=== PATIENT | female | born 1940 | race Caucasian/White ===

== ENCOUNTER 2016-12-06 12:32 | Observation (INO) ==
[2016-12-06 13:34] LABS: Basophils # (Auto) 0 K/mcL (0.0-0.3); Basophils % (Auto) 0 % (0.0-2.0); Eosinophils # (Auto) 0.2 K/mcL (0.0-0.7); Eosinophils % (Auto) 1.6 % (0.0-7.0); Granulocytes % (Auto) 82.7 % (38.0-78.0); Lymphocytes # (Auto) 1.1 K/mcL (1.5-4.8); Lymphocytes % (Auto) 10.2 % (15.5-49.0); Mean Cell Volume 86.5 fL (80.0-100.0); Mean Corpuscular HGB Conc 32.1 g/dL (31.0-36.0); Mean Corpuscular Hemoglobin 27.8 pg (26.0-34.0); Monocytes # (Auto) 0.6 K/mcL (0.1-0.9); Monocytes % (Auto) 5.5 % (1.0-9.0); Platelet Count 226 K/mcL (140-440); Red Cell Distribution Width 14.3 % (11.5-14.5)
[2016-12-06 13:47] LABS: ALT/SGPT 23 U/l (0-40); Albumin/Globulin Ratio 1.4 (1.0-2.3); Alkaline Phosphatase 80 U/L (39-117); Blood Urea Nitrogen 27 mg/dl (8-23)
--- NOTE | 2016-12-06 14:32 | Emergency Department Note ---
Weakness HPI - General Chief complaint: Weakness Stated complaint: Weakness Time Seen by Provider: 12/06/16 14:07 Source: patient Mode of arrival: wheelchair Limitations: no limitations - History of Present Illness HPI Narrative: 76-year-old female with a history of back pain with some tingling to her lower extremities. She had fallen this morning. In been complaining of the low back pain. He has some surgery on November 07 for peripheral vascular disease and since then, she's been more weak than normal after being sent home. She is fallen several times at home. Complaining of increased weakness, unable to get up the stairs because of the pain - Related Data Home Medications Medication Instructions Recorded Confirmed Calcium Carbonate/Vitamin D3 1 each PO DAILY 12/06/16 12/06/16 [Calcium 500 + Vit D Caplet] Cyanocobalamin/FA/Pyridoxine [B 1 each PO DAILY 12/06/16 12/06/16 Complex-Folic Acid Tablet] Ferrous Gluconate [Iron] 256 mg PO DAILY 12/06/16 12/06/16 Formoterol Fumarate [Perforomist] 20 mcg IH BID 12/06/16 12/06/16 Insulin Glargine, Human [Lantus] 22 unit SQ HS 12/06/16 12/06/16 L.acidoph,Paracasei, B.lactis 1 each PO DAILY 12/06/16 12/06/16 [Probiotic] LORazepam [Ativan] 1 mg PO WEEKLYX2 PRN 12/06/16 12/06/16 Magnesium Amino Acid Chelate 133 mg PO BID 12/06/16 12/06/16 [Magnesium] Multivitamin [Multi-Day Vitamins] 1 each PO DAILY 12/06/16 12/06/16 Pantoprazole [Protonix] 40 mg PO ONCE 12/06/16 12/06/16 Potassium Chloride [Klor-Con M10] 10 meq PO DAILY 12/06/16 12/06/16 Pravastatin [Pravachol] 10 mg PO HS 12/06/16 12/06/16 Tacrolimus [Prograf] 1 mg PO HS 12/06/16 12/06/16 Tacrolimus [Prograf] 2 mg PO DAILY 12/06/16 12/06/16 Warfarin Sodium [Jantoven] 5 mg PO DAILY 12/06/16 12/06/16 amLODIPine [Norvasc] 5 mg PO DAILY 12/06/16 12/06/16 predniSONE [Prednisone] 2.5 mg PO DAILY 12/06/16 12/06/16 Allergies Allergy/AdvReac Type Severity Reaction Status Date / Time calcium Allergy Unknown ANTACIDS=NA Verified 08/09/15 13:59 USEA Heparin Analogues Allergy Unknown HIT (+) IN Verified 08/09/15 13:59 2004 (USED FRAGMIN IN 2006 = OK) Sulfa (Sulfonamide Allergy Unknown N/V Verified 08/09/15 13:59 Antibiotics) Review of Systems All systems ED: reviewed and negative except as stated. Constitutional: Denies: fever Eyes: Denies: eye pain ENT ED: Denies: ear pain Cardiovascular: Denies: chest pain Respiratory: Denies: cough Gastrointestinal: Denies: abdominal pain Genitourinary: Denies: urgency Musculoskeletal: Denies: back pain Integumentary: Denies: rash Neurological: Reports: as per HPI, weakness. Denies: headache Psychiatric: Denies: anxiety Past Medical History - Past Medical History Medical history: Reports: DVT (on Coumadin), diabetes (on insulin), other ( heart transplant recipient, perf vascula disease) Surgical history ED: Reports: other (heart transpllant) Family history: Reports: diabetes (m.f diabetes and hearfather W 90s had diabetes had some heart issues) - Social History smoking status: Former smoker Alcohol use: Reports: Occasionally Drug use: Reports: none Physical Exam - General Limitations: no limitations General appearance: alert - Head Head exam: atraumatic - Eye Eye exam: Present: normal appearance, PERRL - ENT ENT exam: normal exam, normal oropharynx - Neck Neck exam: Present: normal inspection, full ROM. Absent: trachea midline - Chest Chest inspection: Present: normal inspection. Absent: symmetric chest wall rise , tenderness - Respiratory Respiratory exam: Present: normal lung sounds bilaterally. Absent: respiratory distress, wheezes - Cardiovascular Cardiovascular exam: Present: regular rate, normal rhythm. Absent: bradycardia , tachycardia - Abdominal Exam Abdominal exam: Present: soft. Absent: distention, tenderness - Extremities Exam Extremities exam: Present: normal inspection, full ROM, tenderness - Back Exam Back exam: Present: normal inspection, tenderness - Neurological Exam Neurological exam: Present: alert, oriented X3, CN II-XII intact - Psychiatric Psychiatric exam: Present: normal affect, normal mood. Absent: depressed, agitated - Skin Skin exam: Present: warm, dry. Absent: intact, normal color Course Vital Signs Temperature 97.6 F 12/06/16 12:32 Pulse Rate 90 12/06/16 12:32 Respiratory Rate 20 12/06/16 12:32 Blood Pressure 127/94 12/06/16 12:32 Pulse Oximetry (%) 98 12/06/16 12:32 Temperature 97.6 F 12/06/16 12:32 Pulse Rate 83 12/06/16 17:14 Respiratory Rate 20 12/06/16 12:32 Blood Pressure 174/142 12/06/16 17:14 Pulse Oximetry (%) 96 12/06/16 17:14 Weakness - MDM Narrative Medical decision making narrative: patient has uti, has been falling alot and has had a heart transplant on immunosuppressants. pacemake. Consulted with Dr Gonzalez and patient to be admitted to med [facility] obs for complicated uti. Treated with rocephin.. Lactic 1.3 - Lab Data Result diagrams: 12/06/16 12:52 12/06/16 12:52 Lab Results 12/06/16 12/06/16 12/06/16 Range/Units 12:52 12:52 12:52 WBC 10.9 (4.5-11.0) K/mcL RBC 4.50 (4.00-5.20) M/mcL Hgb 12.5 (12.0-15.0) g/dL Hct 38.9 (36.0-48.0) % MCV 86.5 (80.0-100.0) fL MCH 27.8 (26.0-34.0) pg MCHC 32.1 (31.0-36.0) g/dL RDW 14.3 (11.5-14.5) % Plt Count 226 (140-440) K/mcL MPV 8.0 (7.4-10.4) fL Gran % 82.7 H (38.0-78.0) % Lymph % (Auto) 10.2 L (15.5-49.0) % [place] % (Auto) 5.5 (1.0-9.0) % Eos % (Auto) 1.6 (0.0-7.0) % Baso % (Auto) 0 (0.0-2.0) % Gran # 9.0 H (1.8-8.0) K/mcL Lymph # 1.1 L (1.5-4.8) K/mcL [place] # 0.6 (0.1-0.9) K/mcL Eos # 0.2 (0.0-0.7) K/mcL Baso # 0 (0.0-0.3) K/mcL Total Counted 100 Seg Neutrophils % 80 H (38-78) % Band Neutrophils % 1 (0-10) % Lymphocytes % 11 L (15-49) % Monocytes % (Manual) 7 (1-9) % Eosinophils % (Manual) 1 (0-7) % Platelet Estimate Normal (NORMAL) RBC Morphology Normal (NORMAL) PT (11.9-14.5) sec INR (0.9-1.1) VBG Lactic Acid (0.5-2.2) mmol/L Sodium 139 (133-145) mmol/L Potassium 3.6 (3.3-5.1) mmol/L Chloride 95 L (96-108) mmol/L Carbon Dioxide 25 (22-30) mmol/L Anion Gap 19.0 H (8-16) BUN 27 H (8-23) mg/dl Creatinine 1.4 H (0.6-1.1) mg/dl GFR Calculation 37 Glucose 166 H (70-105) mg/dL Calcium 8.8 (8.6-10.4) mg/dl Total Bilirubin 0.5 (0.0-1.0) mg/dL AST 19 (0-37) U/l ALT 23 (0-40) U/l Alkaline Phosphatase 80 (39-117) U/L Total Protein 6.8 (5.9-8.4) gm/dL Albumin 4.0 (3.2-5.2) gm/dL Globulin 2.8 (2.2-3.7) gm/dL Albumin/Globulin Ratio 1.4 (1.0-2.3) Urine Color Urine Appearance Urine pH (5.0-9.0) Ur Specific [place] (1.000-1.035) Urine Protein (NEG) mg/dL Urine Glucose (UA) (NEG) mg/dL Urine Ketones (NEG) mg/dL Urine Occult Blood (<0.03) mg/dL Urine Nitrate (NEG) Urine Bilirubin (NEG) mg/dL Urine Urobilinogen (NEG) mg/dL Ur Leukocyte Esterase (NEG) /uL Urine RBC (0-1) /hpf Urine WBC (0-4) /hpf Ur Squamous Epith Cells (0-4) /hpf Ur Transition Epith Cell (0-2) /hpf Urine Bacteria (0) /hpf Urine Mucus (0) /hpf Ur Culture Indicated? 12/06/16 12/06/16 12/06/16 Range/Units 12:52 15:20 16:13 WBC (4.5-11.0) K/mcL RBC (4.00-5.20) M/mcL Hgb (12.0-15.0) g/dL Hct (36.0-48.0) % MCV (80.0-100.0) fL MCH (26.0-34.0) pg MCHC (31.0-36.0) g/dL RDW (11.5-14.5) % Plt Count (140-440) K/mcL MPV (7.4-10.4) fL Gran % (38.0-78.0) % Lymph % (Auto) (15.5-49.0) % [place] % (Auto) (1.0-9.0) % Eos % (Auto) (0.0-7.0) % Baso % (Auto) (0.0-2.0) % Gran # (1.8-8.0) K/mcL Lymph # (1.5-4.8) K/mcL [place] # (0.1-0.9) K/mcL Eos # (0.0-0.7) K/mcL Baso # (0.0-0.3) K/mcL Total Counted Seg Neutrophils % (38-78) % Band Neutrophils % (0-10) % Lymphocytes % (15-49) % Monocytes % (Manual) (1-9) % Eosinophils % (Manual) (0-7) % Platelet Estimate (NORMAL) RBC Morphology (NORMAL) PT 21.7 H (11.9-14.5) sec INR 1.8 H (0.9-1.1) VBG Lactic Acid 1.3 (0.5-2.2) mmol/L Sodium (133-145) mmol/L Potassium (3.3-5.1) mmol/L Chloride (96-108) mmol/L Carbon Dioxide (22-30) mmol/L Anion Gap (8-16) BUN (8-23) mg/dl Creatinine (0.6-1.1) mg/dl GFR Calculation Glucose (70-105) mg/dL Calcium (8.6-10.4) mg/dl Total Bilirubin (0.0-1.0) mg/dL AST (0-37) U/l ALT (0-40) U/l Alkaline Phosphatase (39-117) U/L Total Protein (5.9-8.4) gm/dL Albumin (3.2-5.2) gm/dL Globulin (2.2-3.7) gm/dL Albumin/Globulin Ratio (1.0-2.3) Urine Color Yellow Urine Appearance Turbid Urine pH 7.0 (5.0-9.0) Ur Specific [place] 1.015 (1.000-1.035) Urine Protein 100 A (NEG) mg/dL Urine Glucose (UA) Negative (NEG) mg/dL Urine Ketones Neg (NEG) mg/dL Urine Occult Blood 0.03 A (<0.03) mg/dL Urine Nitrate Pos A (NEG) Urine Bilirubin Neg (NEG) mg/dL Urine Urobilinogen Neg (NEG) mg/dL Ur Leukocyte Esterase 250 A (NEG) /uL Urine RBC 40 H (0-1) /hpf Urine WBC > 182 H (0-4) /hpf Ur Squamous Epith Cells 71 H (0-4) /hpf Ur Transition Epith Cell 2 (0-2) /hpf Urine Bacteria Mod A (0) /hpf Urine Mucus Mod (0) /hpf Ur Culture Indicated? No Disposition Clinical Impression: Complicated UTI (urinary tract infection) Disposition: Xfer As Outpt/Obs ([facility]) Referrals: Keysha Lopez MD [Primary Care Provider] -
[2016-12-06 15:03] LABS: Band Neutrophils % 1 % (0-10); Eosinophils % (Manual) 1 % (0-7); Lymphocytes % 11 % (15-49); Monocytes % (Manual) 7 % (1-9); Platelet Estimate NORMAL (NORMAL); RBC Morphology NORMAL (NORMAL); Segmented Neutrophils % 80 % (38-78)
--- NOTE | 2016-12-06 15:23 | XRay Report ---
CLINICAL INFORMATION: Shortness of breath COMPARISON: 08/04/2016 FINDINGS: The heart is mildly enlarged, but unchanged. Pacemaker and leads and stable, satisfactory position. Mediastinum and pulmonary vessels are normal. There is minor bibasilar atelectasis or scarring. No vee infiltrates or effusions. IMPRESSION: Stable cardiomegaly. No acute disease Interpreted and Authenticated by: Lawrence Aguilar 12/06/16
--- NOTE | 2016-12-06 15:33 | Cat Scan Report ---
CLINICAL INFORMATION: Trauma COMPARISON: 03/02/2016 TECHNIQUE: 2.5 mm helical slices were obtained from the mid T12 through mid S2 vertebral bodies. Following reconstruction, 2.5 mm coronal, sagittal, and axial reformations (angle of the disc space) were processed. Exam was reviewed at bone and soft tissue windows. FINDINGS: Sagittal coronal reformatted images show the lumbar spine be anatomically aligned. There is minimal depression of the superior L1 endplate compatible with very minimal chronic osteoporotic compression fracture. There is no acute fracture. The soft tissues are unremarkable. The T12-L1 and L1-2 disc levels are normal. At L2-3, moderate broad disc protrusion with left-sided asymmetry and facet arthropathy results in moderate central canal and mild bilateral lateral recess narrowing. This is unchanged At L3-4, moderate broad disc protrusion with right-sided asymmetry and facet arthropathy result in moderate central canal and mild right lateral recess narrowing. At L4-5, moderate broad disc spur complex with left-sided asymmetry and facet arthropathy results in severe central canal, left lateral recess and moderate left IV foraminal narrowing. There is also mild right lateral recess and IV foraminal narrowing. This has progressed. At L5-S1, mild broad disc protrusion with left-sided asymmetry results in moderate left IV foraminal narrowing impinging the exiting left L5 nerve root. It is unchanged. The central canal is normal with IMPRESSION: 1. Minimal chronic L1 osteoporotic compression fracture. There is no acute fracture or other acute posttraumatic change 2. Multilevel degenerative change - most severe at L3-4 and L4-5 - similar to the previous study Interpreted and Authenticated by: Lawrence Aguilar 12/06/16
[2016-12-06 15:59] LABS: Appearance,Urine TURBID; Bacteria,Urine MOD /hpf (0); Bilirubin,Urine NEG (NEG); Color,Urine YELLOW; Glucose,Urine (UA) NEGATIVE (NEG); Leukocyte Esterase,Urine 250 /uL (NEG); Mucus,Urine MOD /hpf (0); Nitrate,Urine POS (NEG); Protein,Urine 100 mg/dL (NEG); Specific Gravity,Urine 1.015 (1.000-1.035); Urine Blood 0.03 mg/dL (<0.03); Urine RBC 40 /hpf (0-1); Urine Squamous Epithelial Cell 71 /hpf (0-4); Urine Transitional Epi Cells 2 /hpf (0-2); Urine WBC > 182 /hpf (0-4); Urobilinogen,Urine NEG (NEG)
[2016-12-06] MEDS ORDERED: cefTRIAXone 1 GM in DEXTROSE 5% IN WATER 50 ML IV ONE (16:17)
--- NOTE | 2016-12-06 19:13 | Internal Med History&Physical ---
Medical - H&P: HPI Patient information: Note initiated : 12/06/16 at 7:08 pm Service Date, if different from initiated Date: [] Patient: Ariadna Jean a 76 y/o F admitted on 12/06/16 for Weakness. Chief Complaint: [] History of present illness: Ms. Jean is a 76 year old female who presents to the ER from her pcp office for evaluation increased frequency of falls the patient had a bilateral aortic femoral bypass at [facility] in october, since the day of discharge the patient has not been up and about, she is extremelly weak in her legs and unable to ambulate well. She notes that the hospital just put her in the care and let her go. The patient lives in a fifth wheel with stairs in and out of the trailor, as well as stairs to the bathroom. She has fallen x 2 in the alst 3 days, when her legs have had no strength and gave out, She notes some injury to the knee, but no head injury. She also has some injury to the back. In the ER she was evaluated, her labs were significant for renal dysfunction with creat of 1.4, her ua was positive for UTI, cbc ok, X ray chest neg, CT lumbar spine with old L1 fracture and DJD of the spine. The patient was not deemed safe to go home and therefore admitted to the hospital for further management. The patient notes that 3 days ago she had someone check her for UTI which was reported negative, She admits to one episode of buring urine, but no foul smelling urine, mild increase in frequency. The patient is immunocompromised from her cardiac transplant status, She is on prograf, cell cept as well as prednisone, therefore is considered to be a complex UTI, in this patient the normal findings of sepsis/ fever / raised wbc count may not be as apparent as in normal patients. This is also another factor driving the decision to admit and observe the patient. Blood cultures / Urine cultures sent in the ER and one gram of rocephin given. - Constitutional Constitutional: Present: fatigue, weakness. Absent: chills, fever(s) - EENT Eyes: Absent: blurry vision, change in vision Nose, mouth and throat: Absent: abnormal hearing, change in voice, disequilibrium - Cardiovascular Cardiovascular: Absent: acrocyanosis, chest pain, chest pain at rest, lightheadedness, orthopnea, palpatations, syncope - Respiratory Respiratory: Absent: cough, dyspnea, hemoptysis, dyspnea on exertion, wheezing - Gastrointestinal Gastrointestinal: Absent: abdominal pain, heartburn, hematemesis, loose stools, nausea, vomiting - Genitourinary Genitourinary: Present: urinary frequency, urinary urgency - Musculoskeletal Musculoskeletal: Present: arthralgias, back pain - Integumentary Integumentary: Absent: erythema, new lesions, skin ulcer, jaundice - Neurological Neurological: Present: abnormal gait, frequent falls, numbness (both lower legs. ), paresthesias (antony lower extremity), radicular pain (h/o sciatica). Absent: focal weakness, headache(s), syncope, vertigo - Psychiatric Psychiatric: Absent: anxiety, confusion - Endocrine Endocrine: Absent: polydipsia, polyphagia, polyuria - Hematologic/Lymphatic Hematologic/Lymphatic: Present: easy bleeding, easy bruising (on c oumadin) - Allergic/Immunologic Allergic/Immunologic: Absent: uticaria, wheezing, GI upset with certain foods Medical - H&P: PMH Medical history: h/o DM, HTN, CAD, COPD, PVD, DVT, OA, sciatic back pain, DJD back, OA Surgical history: Cardiac transplant 2006 Antony aorto femoral bypass 11/03 Family history: reviewed and not pertinent Social history: Lives alone in [facility]. ex smoker no etoh no recreational drugs. Medical - H&P: Meds Home Medications Medication Instructions Recorded Confirmed Type Calcium Carbonate/Vitamin D3 1 each PO DAILY 12/06/16 12/06/16 History [Calcium 500 + Vit D Caplet] Cyanocobalamin/FA/Pyridoxine [B 1 each PO DAILY 12/06/16 12/06/16 History Complex-Folic Acid Tablet] Ferrous Gluconate [Iron] 256 mg PO DAILY 12/06/16 12/06/16 History Formoterol Fumarate [Perforomist] 20 mcg IH BID 12/06/16 12/06/16 History Insulin Glargine, Human [Lantus] 30 unit SQ HS 12/06/16 12/06/16 History L.acidoph,Paracasei, B.lactis 1 each PO DAILY 12/06/16 12/06/16 History [Probiotic] LORazepam [Ativan] 1 mg PO WEEKLYX2 PRN 12/06/16 12/06/16 History Magnesium Amino Acid Chelate 133 mg PO BID 12/06/16 12/06/16 History [Magnesium] Multivitamin [Multi-Day Vitamins] 1 each PO DAILY 12/06/16 12/06/16 History Mycophenolate Mofetil [Cellcept] 250 mg PO HS 12/06/16 12/06/16 History Mycophenolate [Cellcept] 500 mg PO QAM 12/06/16 12/06/16 History Pantoprazole [Protonix] 40 mg PO ONCE 12/06/16 12/06/16 History Potassium Chloride [Klor-Con M10] 10 meq PO DAILY 12/06/16 12/06/16 History Pravastatin [Pravachol] 10 mg PO HS 12/06/16 12/06/16 History Tacrolimus [Prograf] 1 mg PO HS 12/06/16 12/06/16 History Tacrolimus [Prograf] 2 mg PO DAILY 12/06/16 12/06/16 History Warfarin Sodium [Jantoven] 5 mg PO DAILY 12/06/16 12/06/16 History amLODIPine [Norvasc] 5 mg PO DAILY 12/06/16 12/06/16 History predniSONE [Prednisone] 2.5 mg PO DAILY 12/06/16 12/06/16 History Allergies Allergy/AdvReac Type Severity Reaction Status Date / Time calcium Allergy Unknown ANTACIDS=NA Verified 08/09/15 13:59 USEA Heparin Analogues Allergy Unknown HIT (+) IN Verified 08/09/15 13:59 2004 (USED FRAGMIN IN 2006 = OK) Sulfa (Sulfonamide Allergy Unknown N/V Verified 08/09/15 13:59 Antibiotics) Medical - H&P: Exam - Constitutional Vitals: Temp Pulse Resp BP Pulse Ox 97.6 F 95 H 20 159/130 96 12/06/16 12:32 12/06/16 18:08 12/06/16 12:32 12/06/16 18:08 12/06/16 18:08 General appearance: average body habitus, cooperative, no acute distress - Head Head exam: Present: atraumatic, normal inspection, normocephalic - Eye Eye exam: Present: PERRL. Absent: periorbital swelling, periorbital tenderness , scleral icterus - ENT ENT exam: Present: mucous membranes dry - Neck Neck exam: Present: normal inspection - Respiratory Respiratory exam: Present: normal respiratory exam, CTAB. Absent: accessory muscle use, rhonchi, stridor, wheezes - Cardiovascular Cardiovascular exam: Present: normal rate and rhythm, +S1, +S2 - GI/Abdominal GI/Abdominal exam: Present: normal bowel sounds, soft. Absent: rigid, tenderness - Extremities Exam Extremities exam: Present: pedal edema (+), Foot pink and warm - Neurological Exam Neurological exam: Present: alert, CN II-XII intact, oriented X3 Additional comments: antony lower legs strength 4/5 kNee reflex ++ Ankle diminished babinski equivocal. - Psychiatric Psychiatric exam: Absent: agitated, anxious - Skin Skin exam: Present: warm. Absent: rash, urticaria Medical - H&P: Reslt - Labs CBC & Chem 7: 12/06/16 12:52 12/06/16 12:52 Medical - H&P: A/P (1) Falls frequently Current visit: Yes Status: Acute (2) Heart transplant status Current visit: Yes Status: Acute (3) COPD (chronic obstructive pulmonary disease) Current visit: Yes Status: Acute (4) HTN (hypertension) Current visit: Yes Status: Acute (5) DVT (deep venous thrombosis) Current visit: Yes Status: Acute (6) Peripheral vascular disease Current visit: Yes Status: Acute (7) Complicated UTI (urinary tract infection) Current visit: Yes Status: Acute (8) Renal failure Current visit: Yes Status: Acute - Narrative A/P Narrative: The patient will be admitted for complicated UTI, given her cardiac transplant status, and h/o falls, I will monitor the patient on Telemetry. UTI- Treat with IV antibiotics, IV fluids, no e/o sepsis Renal failure- No baseline available, will give fluids and monitor Cardiac transplant- Resume home transplant medications. Will get in touch with her transplant team if any concern. Dr Jake Dean, , Jazmyn Carpenter is coordinator [phone] Patient will be on her home medications for DM lantus, with sliding scale insulin COPD duonebs q 6hrs, DVT on coumadin, resume same home dose of warfarin 5mg MF, and 3mg rest of the days. Patients code status is DNR Diet Diabetic, cardiac diet Activity as tolerated, the patient used to walk only 25 feet due to severe pvd for nearly 1.5 yrs before she had the bypass, it would seem she has significant weakness in the leg muscles as she has not used them as much. She would need more intensive PT/ OT. PT/ OT consult, Plan for d/c to snf if possible, but given that she is under obs criteria, it will be difficult, will see if case management can help , patient seems to have home health/ home PT
[2016-12-06] MEDS ORDERED: SENNOSIDES 1 TABLET PO PRN (20:13)
[2016-12-06] MEDS ORDERED: ACETAMINOPHEN 325 MG TABLET PO PRN (20:13)
[2016-12-06] MEDS ORDERED: PROMETHAZINE 25 MG/ML VIAL IV PRN (20:13)
[2016-12-06] MEDS ORDERED: ONDANSETRON 4 MG/2 ML VIAL IV PRN (20:13)
[2016-12-06] MEDS ORDERED: IPRATROPIUM/ALBUTEROL 3 ML AMPUL.NEB NEB PRN (20:13)
[2016-12-06] MEDS ORDERED: MAGNESIUM HYDROXIDE 30 ML ORAL.SUSP PO PRN (20:13)
[2016-12-06] MEDS ORDERED: BISACODYL 5 MG TABLET PO PRN (20:13)
[2016-12-06] MEDS ORDERED: DEXTROSE 50% 50 ML VIAL IV PRN (20:13)
[2016-12-06] MEDS ORDERED: NALOXONE HCL 0.4 MG/ML VIAL IV PRN (20:13)
[2016-12-06] MEDS ORDERED: TACROLIMUS 0.5 MG CAPSULE PO SCH (21:00)
[2016-12-06] MEDS: 0.9 % SODIUM CHLORIDE 1,000 ML IV SCH (21:48)
[2016-12-06] MEDS: SIMVASTATIN 20 MG TABLET PO SCH (21:48)
[2016-12-06] MEDS: amLODIPine 5 MG TABLET PO SCH (21:49)
[2016-12-06] MEDS: MYCOPHENOLATE 250 MG CAPSULE PO SCH (21:52)
[2016-12-06] MEDS: INSULIN GLARGINE, HUMAN 1 UNIT/0.01 ML SQ SCH (21:53)
[2016-12-06] MEDS: HEPARIN 5,000 UNIT/ML VIAL SQ SCH (21:53)
[2016-12-06] MEDS: INSULIN LISPRO 1 UNIT/0.01 ML UNIT SQ SCH (21:54)
[2016-12-06] MEDS: predniSONE 5 MG TABLET PO SCH (21:58)
[2016-12-06] MEDS: LORazepam 1 MG TABLET PO PRN (22:22)
[2016-12-07 05:32] LABS: Basophils # (Auto) 0 K/mcL (0.0-0.3); Basophils % (Auto) 0.1 % (0.0-2.0); Eosinophils # (Auto) 0.1 K/mcL (0.0-0.7); Eosinophils % (Auto) 1.6 % (0.0-7.0); Granulocytes % (Auto) 78.3 % (38.0-78.0); Lymphocytes # (Auto) 1.2 K/mcL (1.5-4.8); Lymphocytes % (Auto) 14.3 % (15.5-49.0); Mean Cell Volume 86.1 fL (80.0-100.0); Mean Corpuscular HGB Conc 32.5 g/dL (31.0-36.0); Monocytes # (Auto) 0.5 K/mcL (0.1-0.9); Monocytes % (Auto) 5.7 % (1.0-9.0); Platelet Count 215 K/mcL (140-440); RBC 4.37 M/mcL (4.00-5.20)
[2016-12-07 05:51] LABS: ALT/SGPT 19 U/l (0-40); Albumin 3.7 gm/dL (3.2-5.2); Albumin/Globulin Ratio 1.5 (1.0-2.3); Alkaline Phosphatase 73 U/L (39-117); Bilirubin,Direct < 0.2 mg/dL (0.0-0.3); Blood Urea Nitrogen 23 mg/dl (8-23); Gamma Glutamyl Transpeptidase 32 U/L (5-36); Magnesium 1.2 mg/dL (1.6-2.5); Phosphorous 3.6 mg/dL (2.7-4.5); Uric Acid 8.6 mg/dL (2.5-8.0)
[2016-12-07] MEDS: MYCOPHENOLATE 250 MG CAPSULE PO SCH ×2 (07:25→19:28)
[2016-12-07] MEDS: PANTOPRAZOLE 40 MG PACKET PO SCH (07:25)
[2016-12-07] MEDS: INSULIN LISPRO 1 UNIT/0.01 ML UNIT SQ SCH ×4 (07:25→20:27)
[2016-12-07] MEDS: HEPARIN 5,000 UNIT/ML VIAL SQ SCH (09:18)
[2016-12-07] MEDS: 0.9 % SODIUM CHLORIDE 1,000 ML IV SCH ×2 (09:18→15:13)
[2016-12-07] MEDS: MAGNESIUM SULFATE 2 GM/50 ML BAG IV ONE ×2 (09:36→11:04)
[2016-12-07] MEDS: TACROLIMUS 1 MG CAPSULE PO SCH (09:36)
[2016-12-07] MEDS: FONDAPARINUX SODIUM 2.5 MG/0.5 ML SYRINGE SQ SCH (09:36)
[2016-12-07] MEDS: cefTRIAXone 1 GM in DEXTROSE 5% IN WATER 50 ML IV SCH (09:36)
[2016-12-07] MEDS: MAGNESIUM OXIDE 400 MG TABLET PO SCH ×2 (09:37→20:27)
[2016-12-07] MEDS: POTASSIUM CHLORIDE 10 MEQ TABLET PO SCH ×2 (09:37→16:14)
[2016-12-07] MEDS: predniSONE 5 MG TABLET PO SCH (09:37)
--- NOTE | 2016-12-07 10:14 | Internal Med Progress Note ---
Medical - PN: Subj Patient information: Note initiated : 12/07/16 at 10:08 am Service Date, if different from initiated Date: [] Patient: Ariadna Jean 76 y/o F admitted on 12/06/16 for Weakness. Chief Complaint: [] Interval history: The patient seen exained, no acute concerns. She notes her legs are too weak to lift against gravity, especially the thigh group of muscles. She notes this is been going on for a while and even before the surgery she had difficulty in ambulating, due to severe PVD. 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 She is anticoagulated with coumadin, and recent bypass surgery. She has not used her extremities well which could very well explain her weakness. She is not a candiate for MRI due to pacemaker in place. And I do nto think at this time ,she would warrant a CT myelogram, given that her knee reflexes are intact. IF there is worsening of her lower extremity weakness we can certainly get a CT myelogram, however at this time I do not think that patient needs to take on that additional risk. Pertinent ROS: Denies headache, dizziness Denies chest pain, palpitations Denies cough or shortness of breath Denies abdominal pain, nausea or vomiting. - Constitutional Vitals: Vital Signs Temp Pulse Resp BP Pulse Ox 98.5 F 83 16 136/68 95 12/07/16 07:23 12/07/16 07:35 12/07/16 07:35 12/07/16 07:23 12/07/16 07:23 Period Temp Pulse Resp BP Sys/Shetty Pulse Ox Last 24 Hr 98.0 F-99.7 F 83-96 16-24 136-150/68-86 93-97 Intake and Output 12/06/16 12/07/16 12/07/16 21:59 05:59 13:59 Intake Total 800 / 800 240 / 240 Output Total 50 / 50 Balance 750 / 750 240 / 240 Weight 180 lb 8 oz Intake & Output: Intake & Output 12/06/16 12/07/16 12/07/16 21:59 05:59 13:59 Intake Total 800 / 800 240 / 240 Output Total 50 / 50 Balance 750 / 750 240 / 240 Weight 180 lb 8 oz Intake: Oral 800 / 800 240 / 240 Output: Void Amount 50 / 50 Other: Meal Breakfast Percent of Meal Consumed 25% Feeding Ability Independent # Voids 1 1 Exam: Constitutional; Afebrile, cooperative, alert, not in distress. Eyes- No icterus, Pupils equal, reactive, No periorbital swelling Ears- Ext ear normal, hearing normal to conversation. Neck- Midline trachea, supple Respiratory system: Air Entry equal on both sides, No crackles or wheezing, no rhonchi. CVS- Rate rhythm regular, S1,S2 heard, no gallop, no rub. Abdomen- Soft nontender abdomen, no organomegaly, no tenderness, no guarding or rigidity, [employer]- AOOx3, moving all extremities, no focal deficit noted (antony lower extremity weakness is chr symetrical) . Medical - PN: Obj Da - Labs CBC & Chem 7: 12/07/16 04:00 12/07/16 04:00 Labs: Abnormal Lab Results 12/07/16 12/07/16 12/07/16 04:00 04:00 04:00 Gran % 78.3 H Lymph % (Auto) 14.3 L Lymph # 1.2 L PT 20.9 H INR 1.7 H Potassium 3.2 L Creatinine 1.4 H Glucose 107 H Uric Acid 8.6 H Magnesium 1.2 L Triglycerides 249 H Meds: Medications Acetaminophen (Tylenol) 650 mg PO Q6HP PRN PRN Reason: PAIN/FEVER > 101 Albuterol/Ipratropium (Duoneb) 3 ml NEB Q6HP PRN PRN Reason: Shortness Of Breath Amlodipine Besylate (Norvasc) 5 mg PO HS [facility] Last Admin: 12/06/16 21:49 Dose: 5 mg Bisacodyl (Dulcolax) 10 mg PO DAILYP PRN PRN Reason: Constipation Dextrose (Dextrose 50%) 0 ml IV UD PRN PRN Reason: Hypoglycemia Diagnostic Test (Pha) (Accu-Chek) 1 each FS ACHS [facility] Last Admin: 12/07/16 07:25 Dose: 1 each Fondaparinux (Arixtra) 2.5 mg SQ DAILY [facility] Last Admin: 12/07/16 09:36 Dose: 2.5 mg Sodium Chloride (Sodium Chloride 0.9%) 1,000 mls @ 75 mls/hr IV .[id number] [facility] Stop: 12/07/16 22:52 Last Admin: 12/07/16 09:18 Dose: Not Given Ceftriaxone Sodium 1 gm/ (Dextrose) 50 mls @ 100 mls/hr IV Q24H [facility] Last Admin: 12/07/16 09:36 Dose: 100 mls/hr Insulin Glargine (Lantus) 30 unit SQ [facility] Last Admin: 12/06/16 21:53 Dose: 30 unit Insulin Human Lispro (Humalog) 0 unit SQ [facility] PRN Reason: Protocol Last Admin: 12/07/16 07:25 Dose: Not Given Lorazepam (Ativan) 1 mg PO HSP PRN PRN Reason: Insomnia Last Admin: 12/06/16 22:22 Dose: 1 mg Magnesium Hydroxide (Milk Of Magnesia) 30 ml PO DAILYP PRN PRN Reason: Constipation Magnesium Oxide (Magnesium Oxide) 400 mg PO BID [facility] Last Admin: 12/07/16 09:37 Dose: 400 mg Mycophenolate Mofetil (Cellcept) 750 mg PO BID@0700,2000 [facility] Last Admin: 12/07/16 07:25 Dose: 750 mg Naloxone HCl (Narcan) 0.1 mg IV Q2MIN PRN PRN Reason: Opiate Reversal Tacrolimus 1 Mg (Capsule) 2 dose PO DAILY [facility] Last Admin: 12/07/16 09:36 Dose: 2 dose Tacrolimus 1 Mg (Capsule) 1 dose PO [facility] Ondansetron HCl (Zofran) 4 mg IV Q4HP PRN PRN Reason: Nausea And Vomiting Pantoprazole Sodium (Protonix) [facility] Last Admin: 12/07/16 07:25 Dose: 40 mg Potassium [facility] ([facility]ur) [address] [facility] Last Admin: 12/07/16 09:37 Dose: 10 meq Potassium Chloride (Klor-Con) 40 meq PO [facility] Prednisone (Prednisone) 2.[address] [facility] Last Admin: 12/07/16 09:37 Dose: 2.5 mg Promethazine HCl (Phenergan) 12.5 mg IV Q6HP PRN PRN Reason: Nausea And Vomiting Senna (Senokot) 2 tab PO HSP PRN PRN Reason: Constipation Simvastatin (Zocor) 20 mg PO [facility] Last Admin: 12/06/16 21:48 Dose: 20 mg Warfarin Sodium (Coumadin) 4 mg PO DAILY@1400 [facility] Medical - PN: A/P - Time Spent With Patient Total time spent is greater than 50% in coordination of care (as documented) at patient's floor/unit and/or counseling patient: (1) Falls frequently Status: Acute Current Visit: Yes (2) Heart transplant status Status: Acute Current Visit: Yes (3) HTN (hypertension) Status: Acute Current Visit: Yes (4) DVT (deep venous thrombosis) Status: Acute Current Visit: Yes (5) Peripheral vascular disease Status: Acute Current Visit: Yes (6) Complicated UTI (urinary tract infection) Status: Acute Current Visit: Yes (7) Renal failure Status: Acute Current Visit: Yes (8) Hypomagnesemia Status: Acute Current Visit: Yes (9) Hypokalemia Status: Acute Current Visit: Yes - Narrative A/P Narrative: Patient will continue with IV rocephin microbiology still pending, will monitor PT / OT to work with the patient today, Will have case management involved to see best possible dispo plan Mg/ K will need to be replaced as this can cause weakness. INr has been subtherapeutic often, on fondaparinaux for DVT porphylaxis, will get duplex lower extremity to ensure graft patency. Continue cardiac meds, and she will follow up with her transplant team as outpatient next week. She is nearly 10 yrs out of her transplant at this time. Plan of care discussed with the patient who expressed understanding. Medical - PN: Qual - VTE Deep Vein Thrombosis/Pulmonary Embolism Present on Admission: No
[2016-12-07] MEDS ORDERED: WARFARIN 4 MG TABLET PO SCH (14:00)
[2016-12-07] MEDS: amLODIPine 5 MG TABLET PO SCH (20:27)
[2016-12-07] MEDS: INSULIN GLARGINE, HUMAN 1 UNIT/0.01 ML SQ SCH (20:27)
[2016-12-07] MEDS: SIMVASTATIN 20 MG TABLET PO SCH (20:27)
[2016-12-07] MEDS: LORazepam 1 MG TABLET PO PRN (20:33)
[2016-12-07] MEDS ORDERED: TACROLIMUS 1 MG CAPSULE PO SCH (21:00)
[2016-12-08 05:43] LABS: Basophils # (Auto) 0 K/mcL (0.0-0.3); Basophils % (Auto) 0.3 % (0.0-2.0); Eosinophils # (Auto) 0.1 K/mcL (0.0-0.7); Eosinophils % (Auto) 1.7 % (0.0-7.0); Granulocytes % (Auto) 75.8 % (38.0-78.0); Lymphocytes % (Auto) 14.3 % (15.5-49.0); Mean Cell Volume 85.6 fL (80.0-100.0); Mean Corpuscular Hemoglobin 28.2 pg (26.0-34.0); Monocytes # (Auto) 0.6 K/mcL (0.1-0.9); Monocytes % (Auto) 7.9 % (1.0-9.0); Platelet Count 182 K/mcL (140-440); RBC 4.21 M/mcL (4.00-5.20); Red Cell Distribution Width 14.1 % (11.5-14.5)
[2016-12-08 06:05] LABS: ALT/SGPT 15 U/l (0-40); Albumin 3.6 gm/dL (3.2-5.2); Albumin/Globulin Ratio 1.4 (1.0-2.3); Alkaline Phosphatase 64 U/L (39-117); Bilirubin,Direct < 0.2 mg/dL (0.0-0.3); Blood Urea Nitrogen 15 mg/dl (8-23); Gamma Glutamyl Transpeptidase 30 U/L (5-36); Magnesium 1.6 mg/dL (1.6-2.5); Phosphorous 2.7 mg/dL (2.7-4.5); Uric Acid 6.7 mg/dL (2.5-8.0)
[2016-12-08] MEDS: MYCOPHENOLATE 250 MG CAPSULE PO SCH (07:25)
[2016-12-08] MEDS: INSULIN LISPRO 1 UNIT/0.01 ML UNIT SQ SCH (07:32)
[2016-12-08] MEDS: PANTOPRAZOLE 40 MG PACKET PO SCH (07:33)
[2016-12-08] MEDS ORDERED: POTASSIUM CHLORIDE 20 MEQ PACKET PO SCH (08:00)
[2016-12-08] MEDS: predniSONE 5 MG TABLET PO SCH (08:51)
[2016-12-08] MEDS: MAGNESIUM OXIDE 400 MG TABLET PO SCH (08:51)
[2016-12-08] MEDS: POTASSIUM CHLORIDE 10 MEQ TABLET PO SCH (08:51)
[2016-12-08] MEDS: TACROLIMUS 1 MG CAPSULE PO SCH (08:53)
[2016-12-08] MEDS: FONDAPARINUX SODIUM 2.5 MG/0.5 ML SYRINGE SQ SCH (08:54)
[2016-12-08] MEDS: cefTRIAXone 1 GM in DEXTROSE 5% IN WATER 50 ML IV SCH (08:55)
--- NOTE | 2016-12-08 09:01 | Ultrasound Report ---
CLINICAL INFORMATION: Femorofemoral bypass one month prior . History of right external iliac artery stenting. Recurrent claudication. COMPARISON: Preoperative CT abdominal aortogram from 05/30/2016. FINDINGS: See attached sheet IMPRESSION: 1. Abdominal aorta: Normal in caliber - 2 cm. 50% stenosis in the infrarenal segment. 2. Right leg runoff: The reported stents in the right common and external iliac arteries are poorly visualized; however, there are 50% restenoses within the right common and external iliac arteries. Less than 50% stenosis - right common femoral artery. Femoral-femoral bypass graft is widely patent. The entire right SFA is occluded with profunda collaterals reconstituting the popliteal artery. 75% segment stenosis in the right popliteal artery. There are scattered stenoses within the right trifurcation arteries - all less than 50%. There is a 5 cm hematoma near the common femoral artery anastomosis 3. Left leg runoff: Common and external iliac arteries are occluded. Common femoral artery is widely patent. The entire SFA is occluded with profunda collaterals reconstituting the popliteal artery. 50% stenoses in the popliteal artery. Left trifurcation arteries: greater than 75% stenoses in the anterior tibial artery origin and greater than 50% stenosis in the proximal posterior tibial artery. Consider: Repeat CT abdominal aortogram with runoff. If the patient cannot tolerate iodinated contrast, then a MR abdominal aortogram with runoff could be substituted. This study would precisely define lower extremity artery status including, importantly, the trifurcation arteries. If the trifurcation arteries are relatively patent, she may benefit from a two stage procedure: aortobifemoral and femoral popliteal bypass grafts Interpreted and Authenticated by: Lawrence Aguilar 12/08/16
--- NOTE | 2016-12-08 09:25 | Discharge Summary ---
Medical - DS: Prov Patient information: Note initiated : 12/08/16 at 9:22 am Service Date, if different from initiated Date: [] Patient: Ariadna Jean 76 y/o F admitted on 12/06/16 for Weakness/Complicated UTI. Chief Complaint: [] Date of admission: 12/06/16 18:55 Discharge date: 12/08/16 Primary care physician: [f_Reg Prim Care Provider] Discharging clinician: Dayana Gonzalez Medical - DS: Meds - Discharge Medications Prescriptions: Cefdinir 300 mg PO BID #14 capsule Active and Home Medications: Home Medications Calcium Carbonate/Vitamin D3 [Calcium 500 + Vit D Caplet] 1 each PO 3XW [History Confirmed 12/06/16 Last Taken 12/04/16 12:00] Cyanocobalamin/FA/Pyridoxine [B Complex-Folic Acid Tablet] 1 each PO DAILY 12/06 [History Confirmed 12/06/16 Last Taken 12/05/16 12:00] Ferrous Gluconate [Iron] 256 mg PO 3XW 12/06/16 [History Confirmed 12/06/16 Last Taken 12/04/16 12:00] Insulin Glargine, Human [Lantus] 30 unit SQ HS 12/06/16 [History Confirmed 12/06 Last Taken 12/05/16 21:00] L.acidoph,Paracasei, B.lactis [Probiotic] 1 each PO DAILY 12/06/16 [History Confirmed 12/06/16 Last Taken Unknown] LORazepam [Ativan] 1 mg PO HS PRN 12/06/16 [History Confirmed 12/06/16 Last Taken 12/05/16 21:00] Magnesium Amino Acid Chelate [Magnesium] 133 mg PO DAILY 12/06/16 [History Confirmed 12/06/16 Last Taken 12/05/16 12:00] Multivitamin [Multi-Day Vitamins] 1 each PO DAILY 12/06/16 [History Confirmed Last Taken 12/05/16 12:00] Mycophenolate [Cellcept] 750 mg PO BID 12/06/16 [History Confirmed 12/06/16 Last Taken 12/05/16 21:00] Pantoprazole [Protonix] 40 mg PO ONCE 12/06/16 [History Confirmed 12/06/16 Last Taken 12/05/16 21:00] Potassium Chloride [Klor-Con M10] 10 meq PO DAILY 12/06/16 [History Confirmed Last Taken 12/05/16 12:00] Rosuvastatin Calcium 5 mg PO QHS 12/06/16 [History Confirmed 12/06/16 Last Taken 12/05/16 21:00] Tacrolimus [Prograf] 1 mg PO HS 12/06/16 [History Confirmed 12/06/16 Last Taken 12/05/16 21:00] Tacrolimus [Prograf] 2 mg PO DAILY 12/06/16 [History Confirmed 12/06/16 Last Taken 12/05/16 09:00] Warfarin Sodium [Jantoven] 5 mg PO 2-3XW 12/06/16 [History Confirmed 12/06/16 Last Taken 12/04/16 08:00] Warfarin [Coumadin] 3 mg PO 3XW 12/06/16 [History Confirmed 12/06/16 Last Taken 12/05/16 09:00] amLODIPine [Norvasc] 5 mg PO DAILY 12/06/16 [History Confirmed 12/06/16 Last Taken 12/05/16 12:00] predniSONE [Prednisone] 2.5 mg PO DAILY 12/06/16 [History Confirmed 12/06/16 Last Taken 12/05/16 12:00] Active Medications Acetaminophen (Tylenol) 650 mg PO Q6HP PRN PRN Reason: PAIN/FEVER > 101 Albuterol/Ipratropium (Duoneb) 3 ml NEB Q6HP PRN PRN Reason: Shortness Of Breath Amlodipine Besylate (Norvasc) 5 mg PO HS [facility] Last Admin: 12/07/16 20:27 Dose: 5 mg Bisacodyl (Dulcolax) 10 mg PO DAILYP PRN PRN Reason: Constipation Dextrose (Dextrose 50%) 0 ml IV UD PRN PRN Reason: Hypoglycemia Diagnostic Test (Pha) (Accu-Chek) 1 each FS ACHS [facility] Last Admin: 12/08/16 07:32 Dose: 1 each Fondaparinux (Arixtra) 2.5 mg SQ DAILY [facility] Last Admin: 12/08/16 08:54 Dose: 2.5 mg Ceftriaxone Sodium 1 gm/ (Dextrose) 50 mls @ 100 mls/hr IV Q24H [facility] Last Admin: 12/08/16 08:55 Dose: 100 mls/hr Insulin Glargine (Lantus) 30 unit SQ [facility] Last Admin: 12/07/16 20:27 Dose: 30 unit Insulin Human Lispro (Humalog) 0 unit SQ [facility] PRN Reason: Protocol Last Admin: 12/08/16 07:32 Dose: Not Given Lorazepam (Ativan) 1 mg PO HSP PRN PRN Reason: Insomnia Last Admin: 12/07/16 20:33 Dose: 1 mg Magnesium Hydroxide (Milk Of Magnesia) 30 ml PO DAILYP PRN PRN Reason: Constipation Magnesium Oxide (Magnesium Oxide) 400 mg PO BID [facility] Last Admin: 12/08/16 08:51 Dose: 400 mg Mycophenolate Mofetil (Cellcept) 750 mg PO BID@0700,1999 [facility] Last Admin: 12/08/16 07:25 Dose: 750 mg Naloxone HCl (Narcan) 0.1 mg IV Q2MIN PRN PRN Reason: Opiate Reversal Tacrolimus 1 Mg (Capsule) 2 dose PO DAILY [facility] Last Admin: 12/08/16 08:53 Dose: 2 dose Tacrolimus 1 Mg (Capsule) 1 dose PO [facility] Last Admin: 12/07/16 20:27 Dose: 1 dose Ondansetron HCl (Zofran) 4 mg IV Q4HP PRN PRN Reason: Nausea And Vomiting [facility]oprazole [facility]) [facility] Last Admin: 12/08/16 07:33 Dose: 40 mg Potassium Chloride (Kdur) 10 meq PO BIDCC [facility] Last Admin: 12/08/16 08:51 Dose: 10 meq Potassium Chloride (Klor-Con) 40 meq PO [facility] Last Admin: 12/08/16 08:50 Dose: 40 meq Prednisone (Prednisone) 2.5 mg PO [facility] Last Admin: 12/08/16 08:51 Dose: 2.5 mg Promethazine HCl (Phenergan) 12.5 mg IV Q6HP PRN PRN Reason: Nausea And Vomiting Senna (Senokot) 2 tab PO [facility] PRN PRN Reason: Constipation Simvastatin (Zocor) 20 mg PO [facility] Last Admin: 12/07/16 20:27 Dose: 20 mg Warfarin Sodium (Coumadin) 4 mg PO DAILY@1400 [facility] Last Admin: 12/07/16 14:00 Dose: 4 mg Medical - DS: Hosp Hospital course: Mrs. Jean is a 76 year old female who presented to the hospital with weakness in her lower extremities, and inability to care for her self. The patient has had a complex past medical history. with h/o recent vascular surgery done in [place]. The patient since surgery the patient has had weakness in both her lower extremities. The patient has had poor ambulation after her surgery and was not able to ambulate well since the day of surgery, she has had home PT/ which she is doing ,but it seems it has not helped her very much. She was sent her by per PCP for further evaluation. The patient is on coumadin, last INR is 1.8, The patient did have a UTI, 3 days before presentation and was treated with IV rocephin, she will be discharged on 7 additional days of cefdinir 300mg bid, The patients weakness is deemed to be due to infection as well as severe deconditioning due to prolonged poor mobility for 2 yrs before her vascular surgery. The patient underwent a USG aortic duplex, which showed patent graft. The patient has significant stenosis with collateral circulation. The radiologist has recommended multiple investigations to further evaluate this, however the patient has a vascular surgeon, with whom she has follow up. I do not see any utility of doing any investigations at this facility. She will follow up with her vascular surgeon in 2 weeks The patient has h/o Cardiac transplant in 2006, on anti rejection meds, prograf , cellcept and prednisone which were continued here. She will continue same, and follow up with her transplant team as outpatient. She is supposed to have her prograf level checked next week. The patient was evaluated by PT and deemed that the patient will benefit from skilled PT. The patient was accepted by [facility] and will be discharge to that facility for further rehab. Discharge diagnosis: UTI, Nas lower extremity weakness. - Time Spent with Patient Total time spent providing and/or coordinating discharge services: Greater than 30 minutes Medical - DS: Exam - Constitutional Vitals: Vital Signs Temp Pulse Pulse Resp BP Pulse Ox 12/08/16 08:00 97.8 F 80 16 166/87 96 12/08/16 07:46 78 18 12/08/16 03:46 98.3 F 78 16 143/69 94 12/07/16 23:39 98.5 F 94 H 20 156/79 96 12/07/16 19:32 98.6 F 88 18 172/86 98 12/07/16 15:51 98.0 F 89 17 132/94 95 12/07/16 12:00 98.3 F 88 19 164/87 95 Intake and Output 12/07/16 12/08/16 12/08/16 21:59 05:59 13:59 Intake Total 1460 / 1460 1550 / 1550 Balance 1460 / 1460 1550 / 1550 Intake: IV 1000 / 1000 1000 / 1000 Sodium Chloride 0.9% 1, 1000 / 1000 1000 / 1000 000 ml @ 75 mls/hr IV . [id number] [facility] Rx#:[id number] Oral 460 / 460 550 / 550 Other: Meal Dinner Applesauce Percent of Meal Consumed 100% 100% Feeding Ability Independent Independent # Voids 1 1 1 Weight 178 lb - Head Head exam: Present: atraumatic, normal inspection - Eye Eye exam: Present: PERRL. Absent: periorbital swelling, scleral icterus - Neck Neck exam: Present: normal inspection - Respiratory Respiratory exam: Present: normal respiratory exam. Absent: stridor, wheezes - Cardiovascular Cardiovascular exam: Present: normal rate and rhythm, +S1, +S2 - Neurological Exam Neurological exam: Present: alert, CN II-XII intact, oriented X3 - Psychiatric Psychiatric exam: Absent: agitated, anxious Medical - DS: Data Labs on day of discharge: Labs from last 24 hours 12/08/16 12/08/16 12/08/16 04:00 04:00 04:00 WBC 7.1 RBC 4.21 Hgb 11.9 L Hct 36.0 MCV 85.6 MCH 28.2 MCHC 33.0 RDW 14.1 Plt Count 182 MPV 7.9 Gran % 75.8 Lymph % (Auto) 14.3 L [place] % (Auto) 7.9 Eos % (Auto) 1.7 Baso % (Auto) 0.3 Gran # 5.4 Lymph # 1.0 L [place] # 0.6 Eos # 0.1 Baso # 0 PT 21.2 H INR 1.8 H Sodium 140 Potassium 3.3 Chloride 101 Carbon Dioxide 23 Anion Gap 16.0 BUN 15 Creatinine 0.9 GFR Calculation 63 Glucose 109 H Uric Acid 6.7 Calcium 8.6 Phosphorus 2.7 Magnesium 1.6 Total Bilirubin 0.5 Direct Bilirubin < 0.2 GGT 30 AST 14 ALT 15 Alkaline Phosphatase 64 Lactate Dehydrogenase 250 Total Protein 6.1 Albumin 3.6 Globulin 2.5 Albumin/Globulin Ratio 1.4 Triglycerides 195 H Medical - DS: A/P - Patient/Caregiver Discharge Instructions Activity: as per physical therapy Diet: Cardiac Additional Instructions: Follow up with your Vascular surgeon as previously planned Follow with your cardiac transplant team as previously planned Go to the ER if worsening conditions, chest pains or shortness of breath. Prescriptions: Cefdinir 300 mg PO BID #14 capsule - Problem Maintenance (1) Falls frequently Status: Acute (2) Heart transplant status Status: Acute (3) HTN (hypertension) Status: Acute (4) DVT (deep venous thrombosis) Status: Acute (5) Peripheral vascular disease Status: Acute (6) Complicated UTI (urinary tract infection) Status: Acute (7) Renal failure Status: Acute (8) Hypomagnesemia Status: Acute (9) Hypokalemia Status: Acute - Follow up Plan Follow up with: Keysha Lopez MD [Primary Care Provider] - Disposition: Xf SNF Prognosis: Fair Rehab Potential: Fair I certify that the patient requires SNF services: Yes Overall status at discharge: patient is progressing back to baseline Medical - DS: Qual - VTE Deep Vein Thrombosis/Pulmonary Embolism Present on Admission: No
== END 2016-12-08 12:00 ==
LOC: ED 12:32 → ICU 12:32
PROVIDERS: ADMIT Internal Medicine; ATTEND Internal Medicine

== ENCOUNTER 2020-02-13 21:23 | Inpatient (IN) ==
[2020-02-13] MEDS ORDERED: FUROSEMIDE 40 MG/4 ML VIAL IV ONE (22:30)
--- NOTE | 2020-02-13 22:45 | Emergency Department Note ---
SOB HPI - General Chief Complaint: Shortness of Breath/Dyspnea Stated Complaint: shortness of breath Time Seen by Provider: 02/13/20 22:04 Source: patient Mode of arrival: ambulatory Limitations: no limitations - History of Present Illness This pleasant 79-year-old patient with multiple medical conditions and problems presents to the emergency room withIncreasing shortness of breath over several days. She has had some increasing edema but now a little bit better in the past several days and lost 8 pounds recently she says. She drinks 48 ounces a day. She is seeing the quantitative equity head. She has had upper respiratory type of symptoms some as well. She has been taking her amlodipine two-point 5 in the morning and 2 of the 2.5 during the day. She has had some runny nose and sore throat now third day with some small tiny amount of green phlegm. Just barely walking a short distance causes her to be so short of breath that it takes 10 minutes to recover. She does not recall a history of congestive heart failure. Her transplant for her heart was 13 years ago. No other blockages of other areas that she knows of but peripheral vascular disease is in her active problem list. She reports a cellulitis in her left lower leg a few months ago that was MRSA positive. REVIEW OF SYSTEMS: Denies chest pain No nausea or vomiting or diarrhea or constipation No dysuria No lightheadedness or dizziness No headaches - Related Data Home Medications Medication Instructions Recorded Confirmed Cyanocobalamin/Folic AC/Vit B6 [B 1 each PO DAILY 12/06/16 01/27/20 Complex-Folic Acid Tablet] LORazepam [Ativan] 1 mg PO HS PRN 12/06/16 01/27/20 Multivitamin [Multi-Day Vitamins] 1 each PO DAILY 12/06/16 01/27/20 Mycophenolate [Cellcept] 750 mg PO BID 12/06/16 01/27/20 Tacrolimus [Prograf] 1 - 2 mg PO BID 12/06/16 01/27/20 Warfarin Sodium [Jantoven] 5 mg PO 2-3XW 12/06/16 01/27/20 predniSONE [Prednisone] 2.5 mg PO DAILY 12/06/16 01/27/20 Mirtazapine [Remeron] 15 mg PO HS 11/07/19 01/27/20 Warfarin [Coumadin] 1 mg PO DAILY 11/07/19 01/27/20 clopidogrel 75 mg tablet 75 mg PO QDAY 01/15/20 01/27/20 ketoconazole 2 % topical cream 1 applic TOPICAL QDAY 01/15/20 01/27/20 magnesium oxide 400 mg (241.3 mg 400 mg PO QDAY 01/15/20 01/27/20 magnesium) tablet mupirocin 2 % topical ointment 1 applic TOPICAL TID 01/15/20 01/27/20 olmesartan 20 mg tablet 40 mg PO QDAY tab 01/15/20 01/27/20 potassium chloride 10 mEq 10 meq PO BID 01/15/20 01/27/20 capsule,extended release rosuvastatin 20 mg tablet 20 mg PO QDAY 01/15/20 01/27/20 torsemide 10 mg tablet 10 mg PO QDAY 01/15/20 01/27/20 umeclidinium 62.5 mcg-vilanterol 1 inh INHALATION QDAY 01/15/20 01/27/20 25 mcg/actuation powdr for inhalation calcium carbonate-vitamin D3 500 tab PO 01/16/20 01/27/20 mg (1,250 mg)-600 unit tablet lactobacillus combination no.8 3 3,000 mmu cells PO QDAY 01/16/20 01/27/20 billion cell capsule pyridoxine (vitamin B6) 100 mg 100 mg PO QID 01/16/20 01/27/20 tablet Basaglar Kwikpen U-100 30 units SUBCUT DAILY 02/14/20 02/14/20 Calcium Carbonate/Vitamin D3 500 mg PO DAILY 02/14/20 02/14/20 [Os-Artie 500-Vit D3 200 Caplet] Mycophenolate [Cellcept] 750 mg PO BID 02/14/20 02/14/20 Olmesartan Medoxomil [Benicar] 20 mg PO DAILY 02/14/20 02/14/20 Previous Rx's Medication Instructions Recorded amlodipine 2.5 mg tablet 2.5 mg PO .COMPLEX #0 tab 02/10/20 Hydroxychloroquine [Plaquenil] 200 mg PO DAILY #7 tab 02/14/20 Allergies Allergy/AdvReac Type Severity Reaction Status Date / Time Heparin Analogues Allergy Severe HIT (+) IN Verified 01/27/20 13:28 2004 (USED FRAGMIN IN 2006 = OK) calcium AdvReac Mild Nausea Verified 01/27/20 13:28 Sulfa (Sulfonamide AdvReac Mild Nausea/Vomi Verified 01/27/20 13:28 Antibiotics) ting Past Medical History - Past Medical History [facility] Narrative: Medical History (Last Updated 02/13/20 @ 22:38 by Josiah Fisher DO) Immunosuppressed status (Chronic) CKD (chronic kidney disease), stage IV (Chronic) Diabetes mellitus, type II (Chronic) Peripheral vascular disease (Chronic) DVT (deep venous thrombosis) (Chronic) Pulmonary embolism (Chronic) COPD (chronic obstructive pulmonary disease) (Chronic) HTN (hypertension) (Chronic) 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) Depression with anxiety (Chronic) Hyperlipidemia (Chronic) GERD (gastroesophageal reflux disease) (Chronic) Infection of superficial incisional surgical site after procedure (Chronic) Expressive aphasia (Chronic) Situational anxiety (Chronic) Major depressive disorder, single episode, moderate (Chronic) Anxiety disorder (Chronic) Mild cognitive impairment (Chronic) Falls frequently (Chronic) Complicated UTI (urinary tract infection) (Chronic) Cellulitis (Resolved) Medication intolerance (Resolved) Chronic anticoagulation (Plavix AND warfarin) Past Surgical History (Last Reviewed 01/16/20 @ 11:11 by Emmanuelle Javed MD) Heart transplant status (Chronic ~04/2005) History of vascular surgery (Chronic) S/P CABG x 3 (Chronic) Status post surgical removal of malignant neoplasm of skin (Chronic) History of pacer cardiac Hist of Lumpectomy History of cataractectomy Family History (Last Reviewed 01/16/20 @ 11:11 by Emmanuelle Javed MD) Father CHF (congestive heart failure) Heart disease, congenital Mother CHF (congestive heart failure) Heart disease, congenital Diabetes mellitus, type II Family/Other Dementia Diabetes mellitus, type II Brother Diabetes mellitus, type II CHF (congestive heart failure) Medical history: Reports: chronic anticoagulation, DVT, DM, other (Heart transplant) Surgical history ED: Reports: other (heart transpllant) - Social History smoking status: Former smoker Alcohol use: Reports: Occasionally Drug use: Reports: none Physical Exam Limitations: no limitations General appearance: alert, nontoxic, other (Somewhat short of breath with 4-6 word dyspnea and a little bit rapid breathing.) Head: atraumatic, normocephalic Eye: Present: EOMI ENT: Present: normal oropharynx, mucous membranes moist, TM's normal bilaterally Neck: Present: trachea midline, other (no significant JVD or HSM.). Absent: lymphadenopathy, thyromegaly Chest: Present: symmetric chest wall rise Respiratory: Present: respiratory distress (Slight or mild with increased rate and slight effort in 4-6 word dyspnea.), rales/crackles (/Rhonchi in the posterior lobes all up and down with poor air exchange.), accessory muscle use (Slight or mild), decreased breath sounds Cardiovascular: Present: regular rate, normal rhythm, other (Somewhat hard to hear.). Absent: systolic murmur, diastolic murmur Abdominal: Present: soft. Absent: distention, tenderness, guarding, rebound, rigidity, organomegaly, mass Extremities: Present: pretibial edema (2/4 on the left and 1/4 on the right.). Absent: calf tenderness, cyanosis, clubbing Neurological: Present: alert, oriented X3 Psychiatric: Present: normal affect, normal mood Skin: Present: warm, dry Course Vital Signs Temperature 99.3 F H 02/13/20 21:24 Pulse Rate 88 02/13/20 21:24 Respiratory Rate 18 02/13/20 21:24 Blood Pressure 209/113 02/13/20 21:24 Pulse Oximetry (%) 89 L 02/13/20 21:24 Temperature 99.3 F H 02/13/20 21:24 Pulse Rate 75 02/14/20 01:46 Respiratory Rate 27 H 02/14/20 01:00 Blood Pressure 177/98 02/14/20 01:46 Pulse Oximetry (%) 93 02/14/20 01:46 Shortness of Breath/Dyspnea - [facility] Narrative Medical decision making narrative: 10:42 PM - increasing shortness of breath with upper respiratory type of symptoms, viral syndrome with runny nose, sore throat, congestion, slight green phlegm and cough. Labs and imaging. Follow blood pressure as it seems to be significantly elevated. 11:16 PM - EKG demonstrates similarities to previous 1 on with inferior lead inverted T waves or flattening as well as lateral flattening in V3-V6 to slightly biphasic on this noticed 1. Rate is around 80. Appears to be sinus rhythm. Short IA interval. Chest x-ray demonstrates moderate CHF and possible left pleural effusion. Influenza tests are negative. 12:10 AM approximately - labs are actually quite unremarkable. BNP is at 1580. 6 weeks ago was over twice this. 12:50 AM - has had about 700 cc urine output. We will go with an additional 40 mg of furosemide. If blood pressure not coming down, will give hydralazine 10 mg IV. Patient reports that she just plainly gets short of breath with activity. She lives with a roommate in a trailer and has been fairly independent. She asked about being able to have oxygen at home. Sats here 91- 93% when talking. 2:15 AM - patient becomes markedly short of breath with any activity and desaturates to 88%. This is even after her 2 doses of furosemide and a total of 1100 cc of. Will discuss with hospitalist. 2:30 AM - I spoke with hospitalist, Dr. Oakley, with agreement for admission. CT scan of the chest will be done because of uncertain source of her low-grade temperature and to further characterize her pulmonary organ system. She will be admitted under droplet precautions. Respiratory panel 1 and 2 ordered as well as COVID-19. Will do blood cultures, start a azithromycin 500 IV and Rocephin 1 g. Duarte catheter to be placed. Of note is that patient was specific earlier in saying that she does not want resuscitation including does not want CPR nor intubation. - Lab Data Result diagrams: 02/13/20 22:40 02/13/20 22:40 Lab Results 02/13/20 02/13/20 02/13/20 Range/Units 22:40 22:40 22:40 WBC 7.7 (4.50-11.00) K/mcL RBC 4.32 (3.59-5.38) M/mcL Hgb 12.0 (11.2-15.7) g/dL Hct 37.8 (34.1-44.9) % MCV 87.5 (80.0-100.0) fL MCH 27.8 (26.0-34.0) pg MCHC 31.7 (31.0-36.0) g/dL RDW 13.8 (11.5-14.5) % Plt Count 201 (140-440) K/mcL MPV 9.2 (7.4-10.4) fL Gran % 81.6 H (38.0-78.0) % Lymph % (Auto) 11.0 L (15.5-49.0) % Motley % (Auto) 6.7 (1.0-12.0) % Eos % (Auto) 0.4 (0.0-7.0) % Baso % (Auto) 0.3 (0.0-2.0) % Gran # 6.25 (1.80-8.00) K/mcL Lymph # (Auto) 0.84 L (1.50-4.80) K/mcL Motley # (Auto) 0.51 (0.10-0.90) K/mcL Eos # (Auto) 0.03 (0.00-0.70) K/mcL Baso # (Auto) 0.02 (0.00-0.30) K/mcL PT (11.9-14.5) sec INR (0.9-1.1) Sodium 137 (133-145) mmol/L Potassium 3.7 (3.3-5.1) mmol/L Chloride 98 (96-108) mmol/L Carbon Dioxide 24 (22-30) mmol/L Anion Gap 15.0 (8-16) BUN 29 H (8-23) mg/dl Creatinine 1.9 H (0.6-1.1) mg/dl GFR Calculation 25 Glucose 113 H (70-105) mg/dL Calcium 8.9 (8.6-10.4) mg/dl Total Bilirubin 0.2 (0.0-1.0) mg/dL AST 24 (0-37) U/l ALT 32 (0-40) U/l Alkaline Phosphatase 75 (39-117) U/L Troponin T 0.01 (0-0.03) ng/ml NT-Pro-B Natriuret Pep 1558.0 H (0-450) pg/ml Total Protein 6.9 (5.9-8.4) gm/dL Albumin 4.0 (3.2-5.2) gm/dL Globulin 2.9 (2.2-3.7) gm/dL Albumin/Globulin Ratio 1.4 (1.0-2.3) Procalcitonin (<0.10) ng/mL 02/13/20 02/13/20 Range/Units 22:40 22:54 WBC (4.50-11.00) K/mcL RBC (3.59-5.38) M/mcL Hgb (11.2-15.7) g/dL Hct (34.1-44.9) % MCV (80.0-100.0) fL MCH (26.0-34.0) pg MCHC (31.0-36.0) g/dL RDW (11.5-14.5) % Plt Count (140-440) K/mcL MPV (7.4-10.4) fL Gran % (38.0-78.0) % Lymph % (Auto) (15.5-49.0) % Motley % (Auto) (1.0-12.0) % Eos % (Auto) (0.0-7.0) % Baso % (Auto) (0.0-2.0) % Gran # (1.80-8.00) K/mcL Lymph # (Auto) (1.50-4.80) K/mcL Motley # (Auto) (0.10-0.90) K/mcL Eos # (Auto) (0.00-0.70) K/mcL Baso # (Auto) (0.00-0.30) K/mcL PT 24.1 H (11.9-14.5) sec INR 2.1 H (0.9-1.1) Sodium (133-145) mmol/L Potassium (3.3-5.1) mmol/L Chloride (96-108) mmol/L Carbon Dioxide (22-30) mmol/L Anion Gap (8-16) BUN (8-23) mg/dl Creatinine (0.6-1.1) mg/dl GFR Calculation Glucose (70-105) mg/dL Calcium (8.6-10.4) mg/dl Total Bilirubin (0.0-1.0) mg/dL AST (0-37) U/l ALT (0-40) U/l Alkaline Phosphatase (39-117) U/L Troponin T (0-0.03) ng/ml NT-Pro-B Natriuret Pep (0-450) pg/ml Total Protein (5.9-8.4) gm/dL Albumin (3.2-5.2) gm/dL Globulin (2.2-3.7) gm/dL Albumin/Globulin Ratio (1.0-2.3) Procalcitonin 0.07 (<0.10) ng/mL Disposition Pt seen by [employer]ER/PA only: No Clinical Impression: Shortness of breath, Abnormal CT scan, chest, Exercise hypoxemia Asthma exacerbation Qualifiers: Asthma severity: severe Asthma persistence: persistent Qualified Code(s): J45.51 - Severe persistent asthma with (acute) exacerbation Disposition: Xfer As Inpt ([facility]) Condition: Serious Additional Instructions: [Note patient is being admitted. No Plaquenil was prescribed outpatient (error; wrong patient).] Prescriptions: Hydroxychloroquine [Plaquenil] 200 mg PO DAILY #7 tab Transmission Status: Received by [address] Referrals: Keysha Lopez MD [Primary Care Provider] -
[2020-02-13 23:41] LABS: Basophils # (Auto) 0.02 K/mcL (0.00-0.30); Basophils % (Auto) 0.3 % (0.0-2.0); Eosinophils # (Auto) 0.03 K/mcL (0.00-0.70); Eosinophils % (Auto) 0.4 % (0.0-7.0); Granulocytes % (Auto) 81.6 % (38.0-78.0); Hematocrit 37.8 % (34.1-44.9); Lymphocytes # (Auto) 0.84 K/mcL (1.50-4.80); Mean Cell Volume 87.5 fL (80.0-100.0); Mean Corpuscular HGB Conc 31.7 g/dL (31.0-36.0); Mean Platelet Volume 9.2 fL (7.4-10.4); Monocytes # (Auto) 0.51 K/mcL (0.10-0.90); Monocytes % (Auto) 6.7 % (1.0-12.0); Platelet Count 201 K/mcL (140-440); RBC 4.32 M/mcL (3.59-5.38); Red Cell Distribution Width 13.8 % (11.5-14.5); WBC 7.7 K/mcL (4.50-11.00)
[2020-02-14 00:02] LABS: ALT/SGPT 32 U/l (0-40); AST/SGOT 24 U/l (0-37); Albumin/Globulin Ratio 1.4 (1.0-2.3); Alkaline Phosphatase 75 U/L (39-117); Bilirubin,Total 0.2 mg/dL (0.0-1.0); Blood Urea Nitrogen 29 mg/dl (8-23); Calcium 8.9 mg/dl (8.6-10.4); Carbon Dioxide 24 mmol/L (22-30); Chloride 98 mmol/L (96-108); Globulin 2.9 gm/dL (2.2-3.7); Glomerular Filtration Rate 25; Glucose 113 mg/dL (70-105)
[2020-02-14] MEDS ORDERED: hydrALAZINE 20 MG/ML VIAL IV ONE (00:42)
[2020-02-14] MEDS ORDERED: FUROSEMIDE 40 MG/4 ML VIAL IV ONE (00:48)
[2020-02-14] MEDS ORDERED: AZITHROMYCIN 500 MG in DEXTROSE 5% IN WATER 250 ML IV ONE (02:31)
[2020-02-14] MEDS ORDERED: cefTRIAXone 1 GM in DEXTROSE 5% IN WATER 50 ML IV SCH (02:45)
[2020-02-14 02:46] LABS: INR 2.1 (0.9-1.1); Prothrombin Time 24.1 sec (11.9-14.5)
[2020-02-14] MEDS ORDERED: cefTRIAXone 1 GM VIAL ONE (04:09)
--- NOTE | 2020-02-14 08:35 | XRay Report ---
HISTORY: Short of breath, fever, cough, COPD and cardiac disease FINDINGS: The heart is moderately enlarged. There is been prior coronary bypass surgery and there is a well-positioned dual-chamber pacemaker. Size of the heart has remained stable since 12/31/19. There are generalized hazy opacities throughout both lungs. Lung volumes are normal and not hyperinflated. There is no consolidating infiltrate or pleural effusion. The pulmonary opacities are new since prior chest x-ray. Moderate amount calcified plaque is present in the aorta. No adenopathy is detected. IMPRESSION: Stable cardiomegaly Diffuse ill-defined infiltrates throughout both lungs. This could be due to widespread bilateral pneumonia or pulmonary edema Interpreted and Authenticated by: Chaitanya Gorman 02/14/20
--- NOTE | 2020-02-14 09:09 | Cat Scan Report ---
History: Fever, cough, shortness of breath, COPD, cardiac disease and diffuse pulmonary infiltrates seen on recent chest x-ray TECHNIQUE: The chest was imaged without contrast from the thoracic inlet to the diaphragms. Sagittal, coronal and axial MIPS images were created. The radiation exposure was limited using dose reduction technology. FINDINGS: Image quality is degraded by patient motion artifact. There may be mild emphysema in both upper lobes. There is a low-attenuation well-circumscribed nodule in the right thyroid which measures 1.9 x 1.9 x 2.8 cm. This is probably an adenoma. The heart is mildly enlarged. There is a prominent epicardial fat pad along the left heart border which. The appearance of moderate cardiomegaly on the preceding portable chest x-ray. There has been prior coronary bypass surgery with multiple sternal wires present and clips in the mediastinum. Patient also has a pacemaker with one lead in the right atrium and the other in the right ventricle. There is relatively little calcified plaque in the coronary arteries. There is a large amount calcified plaque along the wall of a normal caliber. There is ectasia of the ascending aorta. It measures 4.9 cm in diameter. There are bands of scar and/or atelectasis posteriorly and laterally in the right lower lobe and inferiorly medially in the right middle lobe. Is also mild involvement posteriorly and laterally in the left lower lobe. A noncalcified 6 mm well-circumscribed nodule is present anteriorly in the left upper lobe seen on image #47. There is no lobar consolidation. No pleural effusion or abnormally enlarged lymph nodes are present. The diffuse infiltrates or congestive heart failure seen on chest x-ray from 02/13/20 probably resolved. However, due to the motion artifact, the sensitivity of this study is limited. No endobronchial lesion is seen. There may be some bronchial wall thickening due to chronic bronchitis. IMPRESSION: Mild scarring or atelectasis in both lung bases with the greatest involvement in the right lower lobe Mild cardiomegaly Possible bronchitis and emphysema 6 mm left upper lobe nodule. If the patient has been a smoker, follow-up chest CT in one year is recommended. Interpreted and Authenticated by: Chaitanya Gorman 02/14/20
[2020-02-14] MEDS ORDERED: ACETAMINOPHEN 325 MG TABLET PO PRN (09:37)
[2020-02-14] MEDS ORDERED: LACTULOSE 20 GM/30 ML ORAL.SOL PO PRN (09:37)
[2020-02-14] MEDS ORDERED: DEXTROSE 31 GM ORAL.SUSP PO PRN (09:37)
[2020-02-14] MEDS ORDERED: ONDANSETRON 4 MG/2 ML VIAL IV PRN (09:37)
[2020-02-14] MEDS ORDERED: DEXTROSE 50% 50 ML VIAL IV PRN (09:37)
--- NOTE | 2020-02-14 10:22 | Internal Med History&Physical ---
Medical - H&P: [facility] Patient information: Note initiated : 02/14/20 at 10:17 am Service Date, if different from initiated Date: [] Patient: Ariadna Jean a 79 y/o F admitted on 02/14/20 for shortness of breath. Chief Complaint: [Increasing shortness of breath for 3 days] History of present illness: Ms. 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 As per patient, patient has been having flu symptoms including runny nose, sore throat and a cough with small amount yellowish sputum over the past days. She also noticed both legs more swelling. Otherwise she is fine. Denies headache, dizziness, chest pain, abdominal pain, or dysuria. No recent travel and sick contact. Patient lives home with her sister. In the ER, she had one episode of desaturation to 88%. 1 dose azithromycin and Rocephin was given. Respiratory panel and Covid 19 were ordered. When I saw this patient, other than the symptoms mentioned above, patient was fine. Review of systems: Positive for shortness of breath, runny nose, cough with small amount of yellowish sputum sore throat, all other systems were reviewed and are negative. Medical - H&P: [facility] Medical history: COPD, CKD, atrial fibrillation, and heart transplantation 13 years ago due to heart failure Surgical history: heart transplantation 13 years ago due to heart failure Family history: reviewed and not pertinent (Parents had a heart problem) Social history: Former smoker Does not drink alcohol or use drugs. Smoking status: Former smoker Drug use: none Alcohol use: none Medical - H&P: Meds Home Medications Medication Instructions Recorded Confirmed Type Cyanocobalamin/Folic AC/Vit B6 [B 1 each PO DAILY 12/06/16 02/14/20 History Complex-Folic Acid Tablet] LORazepam [Ativan] 1 mg PO HS PRN 12/06/16 02/14/20 History Multivitamin [Multi-Day Vitamins] 1 each PO DAILY 12/06/16 02/14/20 History Mycophenolate [Cellcept] 750 mg PO BID 12/06/16 02/14/20 History Tacrolimus [Prograf] 1 - 2 mg PO BID 12/06/16 02/14/20 History Warfarin Sodium [Jantoven] 5 mg PO 2-3XW 12/06/16 02/14/20 History predniSONE [Prednisone] 2.5 mg PO DAILY 12/06/16 02/14/20 History Mirtazapine [Remeron] 15 mg PO HS 11/07/19 02/14/20 History Warfarin [Coumadin] 1 mg PO DAILY 11/07/19 02/14/20 History clopidogrel 75 mg tablet 75 mg PO QDAY 01/15/20 02/14/20 History ketoconazole 2 % topical cream 1 applic TOPICAL QDAY 01/15/20 02/14/20 History magnesium oxide 400 mg (241.3 mg 400 mg PO QDAY 01/15/20 02/14/20 History magnesium) tablet mupirocin 2 % topical ointment 1 applic TOPICAL TID 01/15/20 02/14/20 History olmesartan 20 mg tablet 40 mg PO QDAY tab 01/15/20 02/14/20 History potassium chloride 10 mEq 10 meq PO BID 01/15/20 02/14/20 History capsule,extended release rosuvastatin 20 mg tablet 20 mg PO QDAY 01/15/20 02/14/20 History torsemide 10 mg tablet 10 mg PO QDAY 01/15/20 02/14/20 History umeclidinium 62.5 mcg-vilanterol 1 inh INHALATION QDAY 01/15/20 02/14/20 History 25 mcg/actuation powdr for inhalation calcium carbonate-vitamin D3 500 1 tab PO DAILY 01/16/20 02/14/20 History mg (1,250 mg)-600 unit tablet lactobacillus combination no.8 3 3,000 mmu cells PO QDAY 01/16/20 02/14/20 History billion cell capsule pyridoxine (vitamin B6) 100 mg 100 mg PO QID 01/16/20 02/14/20 History tablet amlodipine 2.5 mg tablet 2.5 mg PO .COMPLEX #0 tab 02/10/20 02/14/20 Rx Basaglar Florencepen U-100 30 units SUBCUT DAILY 02/14/20 02/14/20 History Calcium Carbonate/Vitamin D3 500 mg PO DAILY 02/14/20 02/14/20 History [Os-Artie 500-Vit D3 200 Caplet] Hydroxychloroquine [Plaquenil] 200 mg PO DAILY #7 tab 02/14/20 Rx Mycophenolate [Cellcept] 750 mg PO BID 02/14/20 02/14/20 History Olmesartan Medoxomil [Benicar] 20 mg PO DAILY 02/14/20 02/14/20 History Allergies Allergy/AdvReac Type Severity Reaction Status Date / Time Heparin Analogues Allergy Severe HIT (+) IN Verified 01/27/20 13:28 2004 (USED FRAGMIN IN 2006 = OK) calcium AdvReac Mild Nausea Verified 01/27/20 13:28 Sulfa (Sulfonamide AdvReac Mild Nausea/Vomi Verified 01/27/20 13:28 Antibiotics) ting Medical - H&P: Exam - Constitutional Vitals: Temp Pulse Resp BP Pulse Ox 98.5 F 79 23 H 115/71 92 02/14/20 09:00 02/14/20 09:00 02/14/20 09:00 02/14/20 09:00 02/14/20 09:00 - Other Additional findings: General - NAD, sitting up in bed, well groomed Eyes - PERRLA, EOM intact ENT no rhinorrhea, no noticeable or palpable swelling, no redness or rash around throat or on face Neck supple, no JVD, no thyromegaly Respiratory: Lungs - no use of accessory muscles, silent, crackles over left field. Cardiovascular - RRR no m/r/g, GI - Normal bowel sounds, no distended, soft and no tenderness Extremeties - No edema, cyanosis or clubbing Musculo Skeletal - 5/5 strength, normal range of motion, no swollen or erythematous joints. Hemo/lymphatic/immune no lymphadenopathy Neurological Alert and oriented x 3, CN 2-12 grossly intact. Psychiatry flat affect Medical - H&P: Reslt - Labs CBC & Chem 7: 02/13/20 22:40 02/13/20 22:40 Labs: Short CBC 02/13/20 Range/Units 22:40 WBC 7.7 (4.50-11.00) K/mcL Hgb 12.0 (11.2-15.7) g/dL Hct 37.8 (34.1-44.9) % Plt Count 201 (140-440) K/mcL BMP 02/13/20 22:40 Sodium 137 Potassium 3.7 Chloride 98 Carbon Dioxide 24 BUN 29 H Creatinine 1.9 H Glucose 113 H Calcium 8.9 Cardiac Enzymes 02/13/20 Range/Units 22:40 Troponin T 0.01 (0-0.03) ng/ml Liver Function 02/13/20 Range/Units 22:40 Total Bilirubin 0.2 (0.0-1.0) mg/dL AST 24 (0-37) U/l ALT 32 (0-40) U/l Alkaline Phosphatase 75 (39-117) U/L Albumin 4.0 (3.2-5.2) gm/dL Medical - H&P: A/P - Narrative A/P Narrative: Assessment: 1. Acute hypoxemic respiratory failure 2. COPD exacerbation 3. CHF, type and chronicity unknown 4. transplanted heart 5. CKD stage IV 6. Paroxysmal atrial fibrillation 7. Positive MRSA screen 8. Gangrene cellulitis Plan: 1. Pulse ox continuous Oxygen Prednisone 30 mg daily Ceftriaxone Inhalers CT of the chest performed, report pending Influenza a and B- negative Covid 19 screen was sent 2. Patient has a low chance of PE because the patient had been on warfarin with a therapeutic INR 3. Patient denies CHF. however, she underwent heart transplantation 13 years ago due to heart failure. Elevated BNP, 1558. Echo Lasix 20 mg IV twice daily Intake and output Daily weight Trop negative, more trop 4. Atrial fibrillation, heart rate is controlled. on warfarin with a therapeutic INR. Continue warfarin. Dosing by pharmacy 5. Mupirocin BID for positive MRSA screening 6. Continue ceftriaxone sangria cellulitis and wound care. 7. GI and DVT prophylaxis: Pantoprazole and warfarin 8. CODE STATUS: DNR and DNI
--- NOTE | 2020-02-14 10:48 | Event Note ---
Parties in Attendance: Patient Decisional Capacity: Yes POLST form completed: not I explained the process regarding CPR, defibrillation, shock, and intubation and medication treatment to the patient. I educated pt on the reality of CPR, how television makes it appear that we are usually successful, and people wake up right away, and can often leave the hospital shortly after. I explained that for young people, and those with few medical problems will do better, those with chronic medical problems or severe illnesses are less likely to survive. If they do survive, they may end up on life support, and possibly have physical and mental deficits. They are usually more dependent on other for their care needs after surviving a code, and would typically require a stay in a rehab facility, and are not usually discharged home from the hospital. Pt declined CRP/resuscition and intubation. In the ER, she told ER physician that she wanted DNR/I too.
[2020-02-14] MEDS: IPRATROPIUM/ALBUTEROL 3 ML AMPUL.NEB NEB SCH ×4 (11:06→23:22)
[2020-02-14 11:32] LABS: INR 2.2 (0.9-1.1); Prothrombin Time 25.3 sec (11.9-14.5)
[2020-02-14] MEDS: 0.9 % SODIUM CHLORIDE 10 ML SYRINGE IV SCH ×2 (12:41→20:46)
[2020-02-14] MEDS: amLODIPine 5 MG TABLET PO SCH (12:41)
[2020-02-14] MEDS: predniSONE 10 MG TABLET PO SCH (12:41)
[2020-02-14] MEDS: MUPIROCIN OINT 2% 22GM NARES SCH ×2 (12:42→20:18)
[2020-02-14] MEDS: INSULIN LISPRO 1 UNIT/0.01 ML UNIT SQ SCH ×3 (13:40→21:31)
[2020-02-14] MEDS ORDERED: WARFARIN 3 MG TABLET PO ONE (14:00)
[2020-02-14] MEDS ORDERED: ALBUTEROL SULFATE 1 PUFF INHALER INH PRN (18:38)
[2020-02-14] MEDS: BUDESONIDE 0.5 MG/2 ML AMPUL.NEB NEB SCH (20:14)
[2020-02-14] MEDS: MYCOPHENOLATE 250 MG CAPSULE PO SCH (20:17)
[2020-02-14] MEDS: MIRTAZAPINE 15 MG TABLET PO SCH (20:17)
[2020-02-14] MEDS: DOCUSATE SODIUM 100 MG CAPSULE PO SCH (20:17)
[2020-02-14] MEDS: FUROSEMIDE 40 MG/4 ML VIAL IV SCH (20:18)
[2020-02-14] MEDS: LORazepam 1 MG TABLET PO PRN (20:18)
[2020-02-14] MEDS ORDERED: TACROLIMUS 0.5 MG CAPSULE PO SCH (21:00)
[2020-02-15] MEDS: IPRATROPIUM/ALBUTEROL 3 ML AMPUL.NEB NEB SCH ×6 (03:37→22:10)
[2020-02-15] MEDS: 0.9 % SODIUM CHLORIDE 10 ML SYRINGE IV SCH ×3 (05:32→21:39)
[2020-02-15 06:40] LABS: Basophils # (Auto) 0.01 K/mcL (0.00-0.30); Basophils % (Auto) 0.2 % (0.0-2.0); Eosinophils # (Auto) 0.01 K/mcL (0.00-0.70); Eosinophils % (Auto) 0.2 % (0.0-7.0); Granulocytes % (Auto) 75.5 % (38.0-78.0); Hematocrit 34.2 % (34.1-44.9); Hemoglobin 10.7 g/dL (11.2-15.7); Lymphocytes # (Auto) 0.98 K/mcL (1.50-4.80); Lymphocytes % (Auto) 16.3 % (15.5-49.0); Mean Cell Volume 89.5 fL (80.0-100.0); Mean Corpuscular HGB Conc 31.3 g/dL (31.0-36.0); Mean Platelet Volume 9.2 fL (7.4-10.4); Monocytes # (Auto) 0.47 K/mcL (0.10-0.90); Monocytes % (Auto) 7.8 % (1.0-12.0); Platelet Count 191 K/mcL (140-440); RBC 3.82 M/mcL (3.59-5.38)
[2020-02-15 06:55] LABS: INR 2.2 (0.9-1.1); Prothrombin Time 25.2 sec (11.9-14.5)
[2020-02-15 07:07] LABS: ALT/SGPT 20 U/l (0-40); AST/SGOT 16 U/l (0-37); Albumin 3.2 gm/dL (3.2-5.2); Albumin/Globulin Ratio 1.1 (1.0-2.3); Alkaline Phosphatase 60 U/L (39-117); Bilirubin,Total 0.2 mg/dL (0.0-1.0); Blood Urea Nitrogen 47 mg/dl (8-23); Calcium 8.3 mg/dl (8.6-10.4); Carbon Dioxide 20 mmol/L (22-30); Chloride 98 mmol/L (96-108); Globulin 2.9 gm/dL (2.2-3.7); Glomerular Filtration Rate 21; Glucose 119 mg/dL (70-105); Phosphorous 5.3 mg/dL (2.7-4.5); Thyroid Stimulating Hormone 0.49 uIU/ml (0.27-5.01)
[2020-02-15] MEDS: PANTOPRAZOLE 40 MG TABLET PO SCH (07:22)
[2020-02-15] MEDS: INSULIN LISPRO 1 UNIT/0.01 ML UNIT SQ SCH ×4 (07:47→21:48)
[2020-02-15] MEDS: ATORVASTATIN 40 MG TABLET PO SCH (08:13)
[2020-02-15] MEDS: MYCOPHENOLATE 250 MG CAPSULE PO SCH ×2 (08:13→21:37)
[2020-02-15] MEDS: MUPIROCIN OINT 2% 22GM NARES SCH ×2 (08:14→21:38)
[2020-02-15] MEDS: MULTIVIT,THER IRON,CA,FA & MIN 1 TABLET PO SCH (08:14)
[2020-02-15] MEDS: DOCUSATE SODIUM 100 MG CAPSULE PO SCH ×2 (08:14→21:36)
[2020-02-15] MEDS: FUROSEMIDE 40 MG/4 ML VIAL IV SCH ×2 (08:14→16:59)
[2020-02-15] MEDS: PYRIDOXINE 100 MG TABLET PO SCH (08:14)
[2020-02-15] MEDS: amLODIPine 5 MG TABLET PO SCH ×2 (08:14→12:06)
[2020-02-15] MEDS: CALCIUM W/VIT D3 500 MG TABLET PO SCH (08:14)
[2020-02-15] MEDS: CLOPIDOGREL 75 MG TABLET PO SCH (08:14)
[2020-02-15] MEDS: VITAMIN B COMPLEX 1 CAPSULE PO SCH (08:14)
[2020-02-15] MEDS: predniSONE 10 MG TABLET PO SCH (08:14)
[2020-02-15] MEDS: LACTOBACILLUS 1 CAPSULE PO SCH (08:14)
[2020-02-15] MEDS: INSULIN GLARGINE, HUMAN 1 UNIT/0.01 ML SQ SCH (08:15)
[2020-02-15] MEDS: TACROLIMUS 1 MG CAPSULE PO SCH (08:15)
[2020-02-15] MEDS: OLMESARTAN MEDOXOMIL 20 MG TABLET PO SCH (08:15)
[2020-02-15] MEDS: BUDESONIDE 0.5 MG/2 ML AMPUL.NEB NEB SCH ×2 (08:47→21:39)
[2020-02-15] MEDS ORDERED: OLMESARTAN MEDOXOMIL 20 MG TABLET PO SCH (09:00)
[2020-02-15] MEDS ORDERED: WARFARIN 1 MG TABLET PO SCH (09:00)
[2020-02-15] MEDS ORDERED: cefTRIAXone 1 GM VIAL IV SCH (09:00)
[2020-02-15] MEDS: ANORO ELLIPTA INH SCH (09:30)
--- NOTE | 2020-02-15 12:55 | Internal Med Progress Note ---
Medical - PN: Subj Patient information: Note initiated : 02/15/20 at 12:50 pm Service Date, if different from initiated Date: [] Patient: Ariadna Jean a 79 y/o F admitted on 02/14/20 for shortness of breath. Chief Complaint: [] Interval History: Ms. 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 02/14 Pt feels better, less SOB. Denies fever/chills. But still feels mild nauseous. Covid -19 test - still pending She has gangrene toes and has been f/u with her podiatry but she would like to see our podiatry here. Podiatry and wound care consult Hb 10.7 Creatinine went up to 2.2 from 1.9 yesterday. She is on lasix 40mg iv bid. Good urine output - Constitutional Vitals: Vital Signs Temp Pulse Resp BP Pulse Ox 98.4 F 66 22 152/72 93 02/15/20 12:01 02/15/20 12:01 02/15/20 12:01 02/15/20 12:01 02/15/20 12:01 Period Temp Pulse Resp BP Sys/Shetty Pulse Ox Last 24 Hr 97.4 F-99.7 F 59-87 15-32 95-158/57-93 91-97 Intake and Output 02/14/20 02/15/20 02/15/20 21:59 05:59 13:59 Intake Total 480 480 Output Total 600 Balance 480 -600 480 Weight 86.682 kg Intake & Output: Intake & Output 02/14/20 02/15/20 02/15/20 21:59 05:59 13:59 Intake Total 480 480 Output Total 600 Balance 480 -600 480 Weight 86.682 kg Intake: Oral 480 480 Output: Urine Catheter Amount 600 Other: Meal Lunch Breakfast Percent of Meal Consumed 100% 100% Feeding Ability Independent Urine Appearance Clear Clear Urine Color Bright Yellow Bright Yellow Urine Odor Normal - Additional findings Additional findings: General - NAD, sitting up in bed, well groomed Eyes - PERRLA, EOM intact ENT no rhinorrhea, no noticeable or palpable swelling, no redness or rash around throat or on face Neck supple, no JVD, no thyromegaly Respiratory: Lungs - no use of accessory muscles, silent, crackles over left field. Cardiovascular - RRR no m/r/g, GI - Normal bowel sounds, no distended, soft and no tenderness Extremeties - No edema, cyanosis or clubbing Musculo Skeletal - 5/5 strength, normal range of motion, no swollen or erythematous joints. Hemo/lymphatic/immune no lymphadenopathy Neurological Alert and oriented x 3, CN 2-12 grossly intact. Psychiatry flat affect Medical - PN: Obj Da - Labs CBC & Chem 7: 02/15/20 05:43 02/15/20 05:43 Labs: Abnormal Lab Results 02/15/20 02/15/20 02/15/20 05:43 05:43 05:43 Hgb 10.7 L Gran % Lymph % (Auto) Lymph # (Auto) 0.98 L PT 25.2 H INR 2.2 H Carbon Dioxide 20 L Anion Gap 18.0 H BUN 47 H Creatinine 2.2 H Glucose 119 H Calcium 8.3 L Phosphorus 5.3 H NT-Pro-B Natriuret Pep 02/14/20 02/13/20 02/13/20 10:45 22:54 22:40 Hgb Gran % Lymph % (Auto) Lymph # (Auto) PT 25.3 H 24.1 H INR 2.2 H 2.1 H Carbon Dioxide Anion Gap BUN 29 H Creatinine 1.9 H Glucose 113 H Calcium Phosphorus NT-Pro-B Natriuret Pep 1558.0 H 02/13/20 22:40 Hgb Gran % 81.6 H Lymph % (Auto) 11.0 L Lymph # (Auto) 0.84 L PT INR Carbon Dioxide Anion Gap BUN Creatinine Glucose Calcium Phosphorus NT-Pro-B Natriuret Pep Meds: Medications Acetaminophen (Tylenol) 650 mg PO Q6HP PRN; Protocol PRN Reason: Per Pain Protocol/Fever > 101 Albuterol Sulfate (Ventolin) 1 puff INH Q4HP PRN PRN Reason: Shortness Of Breath Last Admin: 02/14/20 20:44 Dose: 1 puff Documented by: Albuterol/Ipratropium (Duoneb) 3 ml NEB Q4HRT [facility] Last Admin: 02/15/20 12:12 Dose: Not Given Documented by: Amlodipine Besylate (Norvasc) 2.5 mg PO DAILY [facility] Last Admin: 02/15/20 08:14 Dose: 2.5 mg Documented by: Amlodipine Besylate (Norvasc) 5 mg PO DAILY@1200 [facility] Last Admin: 02/15/20 12:06 Dose: 5 mg Documented by: Atorvastatin Calcium (Lipitor) 40 mg PO DAILY [facility] Last Admin: 02/15/20 08:13 Dose: 40 mg Documented by: Budesonide (Pulmicort) 0.5 mg NEB Q12 [facility] Last Admin: 02/15/20 08:47 Dose: Not Given Documented by: Calcium/Vitamin D (Calcium W/Vit D3) 500 mg PO DAILY [facility] Last Admin: 02/15/20 08:14 Dose: 500 mg Documented by: Ceftriaxone Sodium (Rocephin) 1 gm IV DAILY [facility] Last Admin: 02/15/20 08:15 Dose: 1 gm Documented by: Clopidogrel Bisulfate (Plavix) 75 mg PO QDAY [facility] Last Admin: 02/15/20 08:14 Dose: 75 mg Documented by: Dextrose (Dextrose 50%) 0 ml IV UD PRN PRN Reason: Hypoglycemia Diagnostic Test (Pha) (Accu-Chek) 1 each FS [facility] Last Admin: 02/15/20 11:21 Dose: 1 each Documented by: Docusate Sodium (Colace) 100 mg PO BID [facility] Last Admin: 02/15/20 08:14 Dose: 100 mg Documented by: Furosemide (Lasix) 40 mg IV BIDD [facility] Last Admin: 02/15/20 08:14 Dose: 40 mg Documented by: Glucose (Insta-Glucose) 15 gm PO PRN PRN PRN Reason: Hypoglycemia Insulin Glargine (Lantus) 30 unit SQ DAILY [facility] Last Admin: 02/15/20 08:15 Dose: 30 units Documented by: Insulin Human Lispro (Humalog) 0 unit SQ [facility]; Protocol Last Admin: 02/15/20 11:22 Dose: Not Given Documented by: Iron Carb/Multivit/Adams/Folic Acid (Multivitamin W/Minerals) 1 tab PO DAILY [facility] Last Admin: 02/15/20 08:14 Dose: 1 tab Documented by: Lactobacillus Rhamnosus (Culturelle) 1 cap PO DAILY [facility] Last Admin: 02/15/20 08:14 Dose: 1 cap Documented by: Lactulose (Cephulac) 10 gm PO DAILYP PRN PRN Reason: Constipation Lorazepam (Ativan) 1 mg PO HSP PRN PRN Reason: Anxiety Last Admin: 02/14/20 20:18 Dose: 1 mg Documented by: Mirtazapine (Remeron) 15 mg PO [facility] Last Admin: 02/14/20 20:17 Dose: 15 mg Documented by: Morphine Sulfate (Morphine) 2 mg IV Q4HP PRN PRN Reason: Chest Pain Mupirocin (Bactroban Oint 2%) 1 dose NARES BID [facility] Last Admin: 02/15/20 08:14 Dose: 1 dose Documented by: Mycophenolate Mofetil (Cellcept) 750 mg PO BID [facility] Last Admin: 02/15/20 08:13 Dose: 750 mg Documented by: Olmesartan (Benicar) 20 mg PO DAILY [facility] Last Admin: 02/15/20 08:15 Dose: 20 mg Documented by: Ondansetron HCl (Zofran) 4 mg IV Q6HP PRN; Protocol PRN Reason: Nausea And Vomiting Last Admin: 02/14/20 12:41 Dose: 4 mg Documented by: Pantoprazole Sodium (Protonix) 40 mg PO [facility] Last Admin: 02/15/20 07:22 Dose: 40 mg Documented by: Anoro Ellipta ( Umeclidinium 62.5 Mcg And Vilanterol 25 Mcg) Inhaler 1 dose INH DAILY [facility] Last Admin: 02/15/20 09:30 Dose: 1 dose Documented by: Prednisone (Prednisone) 30 mg PO [facility] Last Admin: 02/15/20 08:14 Dose: 30 mg Documented by: Pyridoxine HCl (Vitamin B-6) 100 mg PO DAILY [facility] Last Admin: 02/15/20 08:14 Dose: 100 mg Documented by: Sodium Chloride (Saline Flush) 10 ml IV Q8 [facility] Last Admin: 02/15/20 05:32 Dose: 10 ml Documented by: Tacrolimus (Tacrolimus) 2 mg PO DAILY [facility] Last Admin: 02/15/20 08:15 Dose: 2 mg Documented by: Tacrolimus (Tacrolimus) 1 mg PO [facility] Vitamin B Complex (Vitamin B Complex) 1 cap PO DAILY [facility] Last Admin: 02/15/20 08:14 Dose: 1 cap Documented by: Warfarin Sodium (Coumadin Per Pharmacy) 1 [place] PO [facility] [place]farin Sodium (Coumadin) 6 mg PO ONCE@1400 ONE Stop: 02/15/20 14:01 Medical - PN: A/P - Time Spent With Patient Total time spent is greater than 50% in coordination of care (as documented) at patient's floor/unit and/or counseling patient: - Narrative A/P Narrative: Assessment: 1. Acute hypoxemic respiratory failure 2. COPD exacerbation 3. CHF, type and chronicity unknown 4. transplanted heart 5. CKD stage IV 6. Paroxysmal atrial fibrillation 7. Positive MRSA screen 8. Gangrene toes of both feet 9. Pulmonary nodule - 6 mm left upper lobe nodule. follow-up chest CT in one year Plan: 1. Pulse ox continuous Oxygen, now she is on 0.5L NC. I will discontinue Prednisone 30 mg daily today since her SOB improved. I will resume her home prednisone 2.5mg daily. Steroid and immunosuppressants reduce the ability to fight viral infection including covid 19. Continue Ceftriaxone for her gangrene toes Inhalers CT of the chest - Mild scarring or atelectasis in both lung bases with the greatest involvement in the right lower lobe; Mild cardiomegaly; Possible br onchitis and emphysema; Influenza a and B- negative Covid 19 screen was sent, result pending Repeat CXR 2. Patient has a low chance of PE because the patient had been on warfarin with a therapeutic INR 3. Patient denies CHF. however, she underwent heart transplantation 13 years ago due to heart failure. Elevated BNP, 1558. Echo Lasix 40 mg IV twice daily Intake and output Daily weight Trop negative x 3 4. Atrial fibrillation, heart rate is controlled. on warfarin with a therape utic INR. Continue warfarin. Dosing by pharmacy 5. Mupirocin BID for positive MRSA screening 6. Continue ceftriaxone for gangrene toes. Podiatry consult and wound care. 7. GI and DVT prophylaxis: Pantoprazole and warfarin 8. CODE STATUS: DNR and DNI
--- NOTE | 2020-02-15 13:22 | Internal Med Progress Note ---
Medical - PN: Subj Patient information: Note initiated : 02/15/20 at 1:11 pm Service Date, if different from initiated Date: [] Patient: Ariadna Jean 79 y/o F admitted on 02/14/20 for shortness of breath. Chief Complaint: [] Interval history: Mr. Duran is a 89 year old M otherwise previously healthy and lives with his son body and was at baseline stable until 2 weeks prior to presentation started noticing increasing weakness fatigue/associated cough and shortness of breath. Symptoms associated low-grade fever. Hepresents to [facility] ER with worsening above symptoms. Symptoms followed after he was exposed to his son who was sick with bronchitis. Patient was found hypoxic requiring 2 L oxygen with sats in mid 80s. Initial work-up was consistent with bilateral diffuse infiltrates on chest imaging c onsistent with pneumonia. Hospital service was consulted after patient started antibiotic coverage. Viral respiratory panel was sent.\ At the time of evaluation patient is accompanied with his son. He appears nondistressed. Most of history is obtained from patient's son who lives with him. He denies endorsing diarrhea, loss of consciousness, lightheadedness or dizziness. 02/11-patient continues on 2 L oxygen. Coronavirus testing pending. On antibiotic coverage. T-max 98. No overnight events or concerns per staff. 02/12-worsening shortness of breath now on 6 L oxygen. X-ray chest worsening diffuse bilateral pulmonary infiltrate. Coronavirus test pending. No fever chills. White count 9.8. Remains confused. Gentle diuresis 02/13 Pt lying in bed and seems to be comfortable. He still has SOB, on 6L via NC. Covid-19 result came back yesterday, negative. He is clinically compatible with Covid -19. Discussed with ID Dr. Woodward, repeat Covid 19 and discontinued hydroxychoroquine (QTC on EKG prolonged). Discontinued ceftriaxone and started Levaquin BNP 4113. echo 02/14 Pt feels better, less SOB. Denies fever/chills. But still feels mild nauseous. Covid -19 test - still pending She has gangrene toes and has been f/u with her podiatry but she would like to see our podiatry here. Podiatry and wound care consult Hb 10.7 Creatinine went up to 2.2 from 1.9 yesterday. She is on lasix 40mg iv bid. Good urine output ROS: Positive for SOB all other systems were reviewed and are negative. - Constitutional Vitals: Vital Signs Temp Pulse Resp BP Pulse Ox 98.4 F 66 22 152/72 93 02/15/20 12:01 02/15/20 12:01 02/15/20 12:01 02/15/20 12:01 02/15/20 12:01 Period Temp Pulse Resp BP Sys/Shetty Pulse Ox Last 24 Hr 97.4 F-99.7 F 59-87 15-32 95-158/57-93 91-97 Intake and Output 02/14/20 02/15/20 02/15/20 21:59 05:59 13:59 Intake Total 480 480 Output Total 600 Balance 480 -600 480 Weight 86.682 kg Intake & Output: Intake & Output 02/14/20 02/15/20 02/15/20 21:59 05:59 13:59 Intake Total 480 480 Output Total 600 Balance 480 -600 480 Weight 86.682 kg Intake: Oral 480 480 Output: Urine Catheter Amount 600 Other: Meal Lunch Breakfast Percent of Meal Consumed 100% 100% Feeding Ability Independent Urine Appearance Clear Clear Urine Color Bright Yellow Bright Yellow Urine Odor Normal - Additional findings Additional findings: General - sitting on chair, seems to be comfortable Eyes - PERRLA, EOM intact ENT no rhinorrhea, no noticeable or palpable swelling, no redness or rash around throat or on face Neck supple, no JVD, no thyromegaly Respiratory: Lungs - no use of accessory muscles, crackles b/l. Cardiovascular - RRR no m/r/g, GI - Normal bowel sounds, no distended, soft and no tenderness Extremeties - No edema, cyanosis or clubbing Musculo Skeletal - 5/5 strength, normal range of motion, no swollen or erythematous joints. Hemo/lymphatic/immune no lymphadenopathy Neurological A+O x 3, no focal neurological deficits. Psychiatry flat affect Medical - PN: Obj Da - Labs CBC & Chem 7: 02/15/20 05:43 02/15/20 05:43 Labs: Abnormal Lab Results 02/15/20 02/15/20 02/15/20 05:43 05:43 05:43 Hgb 10.7 L Gran % Lymph % (Auto) Lymph # (Auto) 0.98 L PT 25.2 H INR 2.2 H Carbon Dioxide 20 L Anion Gap 18.0 H BUN 47 H Creatinine 2.2 H Glucose 119 H Calcium 8.3 L Phosphorus 5.3 H NT-Pro-B Natriuret Pep 02/14/20 02/13/20 02/13/20 10:45 22:54 22:40 Hgb Gran % Lymph % (Auto) Lymph # (Auto) PT 25.3 H 24.1 H INR 2.2 H 2.1 H Carbon Dioxide Anion Gap BUN 29 H Creatinine 1.9 H Glucose 113 H Calcium Phosphorus NT-Pro-B Natriuret Pep 1558.0 H 02/13/20 22:40 Hgb Gran % 81.6 H Lymph % (Auto) 11.0 L Lymph # (Auto) 0.84 L PT INR Carbon Dioxide Anion Gap BUN Creatinine Glucose Calcium Phosphorus NT-Pro-B Natriuret Pep Meds: Medications Acetaminophen (Tylenol) 650 mg PO Q6HP PRN; Protocol PRN Reason: Per Pain Protocol/Fever > 101 Albuterol Sulfate (Ventolin) 1 puff INH Q4HP PRN PRN Reason: Shortness Of Breath Last Admin: 02/14/20 20:44 Dose: 1 puff Documented by: Albuterol/Ipratropium (Duoneb) 3 ml NEB Q4HRT [facility] Last Admin: 02/15/20 12:12 Dose: Not Given Documented by: Amlodipine Besylate (Norvasc) 2.5 mg PO DAILY [facility] Last Admin: 02/15/20 08:14 Dose: 2.5 mg Documented by: Amlodipine Besylate (Norvasc) 5 mg PO DAILY@1200 [facility] Last Admin: 02/15/20 12:06 Dose: 5 mg Documented by: Atorvastatin Calcium (Lipitor) 40 mg PO DAILY [facility] Last Admin: 02/15/20 08:13 Dose: 40 mg Documented by: Budesonide (Pulmicort) 0.5 mg NEB Q12 [facility] Last Admin: 02/15/20 08:47 Dose: Not Given Documented by: Calcium/Vitamin D (Calcium W/Vit D3) 500 mg PO DAILY [facility] Last Admin: 02/15/20 08:14 Dose: 500 mg Documented by: Ceftriaxone Sodium (Rocephin) 1 gm IV DAILY [facility] Last Admin: 02/15/20 08:15 Dose: 1 gm Documented by: Clopidogrel Bisulfate (Plavix) 75 mg PO QDAY [facility] Last Admin: 02/15/20 08:14 Dose: 75 mg Documented by: Dextrose (Dextrose 50%) 0 ml IV UD PRN PRN Reason: Hypoglycemia Diagnostic Test (Pha) (Accu-Chek) 1 each FS ACHS [facility] Last Admin: 02/15/20 11:21 Dose: 1 each Documented by: Docusate Sodium (Colace) 100 mg PO BID [facility] Last Admin: 02/15/20 08:14 Dose: 100 mg Documented by: Furosemide (Lasix) 40 mg IV BIDD [facility] Last Admin: 02/15/20 08:14 Dose: 40 mg Documented by: Glucose (Insta-Glucose) 15 gm PO PRN PRN PRN Reason: Hypoglycemia Insulin Glargine (Lantus) 30 unit SQ DAILY [facility] Last Admin: 02/15/20 08:15 Dose: 30 units Documented by: Insulin Human Lispro (Humalog) 0 unit SQ [facility]; Protocol Last Admin: 02/15/20 11:22 Dose: Not Given Documented by: Iron Carb/Multivit/Electronic [employer] Repairer Supervisor/Folic Acid (Multivitamin W/Minerals) 1 tab PO DAILY [facility] Last Admin: 02/15/20 08:14 Dose: 1 tab Documented by: Lactobacillus Rhamnosus (Culturelle) 1 cap PO DAILY [facility] Last Admin: 02/15/20 08:14 Dose: 1 cap Documented by: Lactulose (Cephulac) 10 gm PO DAILYP PRN PRN Reason: Constipation Lorazepam (Ativan) 1 mg PO HSP PRN PRN Reason: Anxiety Last Admin: 02/14/20 20:18 Dose: 1 mg Documented by: Mirtazapine (Remeron) 15 mg PO HS [facility] Last Admin: 02/14/20 20:17 Dose: 15 mg Documented by: Morphine Sulfate (Morphine) 2 mg IV Q4HP PRN PRN Reason: Chest Pain Mupirocin (Bactroban Oint 2%) 1 dose NARES BID [facility] Last Admin: 02/15/20 08:14 Dose: 1 dose Documented by: Mycophenolate Mofetil (Cellcept) 750 mg PO BID [facility] Last Admin: 02/15/20 08:13 Dose: 750 mg Documented by: Olmesartan (Benicar) 20 mg PO DAILY [facility] Last Admin: 02/15/20 08:15 Dose: 20 mg Documented by: Ondansetron HCl (Zofran) 4 mg IV Q6HP PRN; Protocol PRN Reason: Nausea And Vomiting Last Admin: 02/14/20 12:41 Dose: 4 mg Documented by: [facility] Last Admin: 02/15/20 07:22 Dose: 40 mg Documented by: Anoro Ellipta ( Umeclidinium 62.5 Mcg And Vilanterol 25 Mcg) Inhaler 1 dose INH DAILY [facility] Last Admin: 02/15/20 09:30 Dose: 1 dose Documented by: Prednisone (Prednisone) 2.5 mg PO [facility] Pyridoxine HCl (Vitamin B-6) 100 mg PO DAILY [facility] Last Admin: 02/15/20 08:14 Dose: 100 mg Documented by: Sodium Chloride (Saline Flush) 10 ml IV Q8 [facility] Last Admin: 02/15/20 05:32 Dose: 10 ml Documented by: Tacrolimus (Tacrolimus) 2 mg PO DAILY [facility] Last Admin: 02/15/20 08:15 Dose: 2 mg Documented by: Tacrolimus (Tacrolimus) 1 mg PO [facility] Vitamin B Complex (Vitamin B Complex) 1 cap PO DAILY [facility] Last Admin: 02/15/20 08:14 Dose: 1 cap Documented by: Warfarin Sodium (Coumadin Per Pharmacy) 1 order PO [facility] [place] Warfarin Sodium (Coumadin) 6 mg PO ONCE@1400 ONE Stop: 02/15/20 14:01 Medical - PN: A/P - Time Spent With Patient Total time spent is greater than 50% in coordination of care (as documented) at patient's floor/unit and/or counseling patient:
[2020-02-15] MEDS ORDERED: WARFARIN 3 MG TABLET PO ONE (14:00)
--- NOTE | 2020-02-15 14:20 | XRay Report ---
HISTORY: Short of breath FINDINGS: The heart is mildly enlarged. There is improved aeration of both lungs since the prior chest x-ray done on 02/13/20. There is no consolidating infiltrate or congestive heart failure at this time. There may be some mild interstitial fibrosis around the left hilum and laterally in the right lung base. Pacemaker remains well-positioned. IMPRESSION: Improving aeration in both lungs and decreased cardiomegaly Interpreted and Authenticated by: Chaitanya Gorman 02/15/20
[2020-02-15] MEDS ORDERED: TACROLIMUS 1 MG CAPSULE PO SCH (21:00)
[2020-02-15] MEDS: MIRTAZAPINE 15 MG TABLET PO SCH (21:36)
[2020-02-15] MEDS: LORazepam 1 MG TABLET PO PRN (23:58)
[2020-02-16] MEDS: IPRATROPIUM/ALBUTEROL 3 ML AMPUL.NEB NEB SCH ×4 (02:02→15:21)
[2020-02-16] MEDS: 0.9 % SODIUM CHLORIDE 10 ML SYRINGE IV SCH ×2 (05:11→14:36)
[2020-02-16 06:44] LABS: Basophils # (Auto) 0.02 K/mcL (0.00-0.30); Basophils % (Auto) 0.3 % (0.0-2.0); Eosinophils # (Auto) 0.03 K/mcL (0.00-0.70); Eosinophils % (Auto) 0.5 % (0.0-7.0); Granulocytes % (Auto) 73.7 % (38.0-78.0); Hematocrit 35.3 % (34.1-44.9); Hemoglobin 10.7 g/dL (11.2-15.7); Lymphocytes # (Auto) 1.13 K/mcL (1.50-4.80); Lymphocytes % (Auto) 18.1 % (15.5-49.0); Mean Cell Volume 89.4 fL (80.0-100.0); Mean Corpuscular HGB Conc 30.3 g/dL (31.0-36.0); Mean Platelet Volume 9.5 fL (7.4-10.4); Monocytes # (Auto) 0.46 K/mcL (0.10-0.90); Monocytes % (Auto) 7.4 % (1.0-12.0); Platelet Count 215 K/mcL (140-440); RBC 3.95 M/mcL (3.59-5.38); WBC 6.3 K/mcL (4.50-11.00)
[2020-02-16] MEDS: MYCOPHENOLATE 250 MG CAPSULE PO SCH ×2 (06:51→08:20)
[2020-02-16] MEDS: PANTOPRAZOLE 40 MG TABLET PO SCH (06:52)
[2020-02-16 07:05] LABS: ALT/SGPT 18 U/l (0-40); AST/SGOT 14 U/l (0-37); Albumin 3.3 gm/dL (3.2-5.2); Albumin/Globulin Ratio 1.2 (1.0-2.3); Alkaline Phosphatase 58 U/L (39-117); Bilirubin,Total < 0.2 mg/dL (0.0-1.0); Calcium 8.3 mg/dl (8.6-10.4); Carbon Dioxide 20 mmol/L (22-30); Chloride 101 mmol/L (96-108); Globulin 2.8 gm/dL (2.2-3.7); Glucose 90 mg/dL (70-105)
[2020-02-16 07:06] LABS: INR 2.4 (0.9-1.1); Prothrombin Time 26.5 sec (11.9-14.5)
[2020-02-16] MEDS: amLODIPine 5 MG TABLET PO SCH (07:23)
[2020-02-16] MEDS: INSULIN LISPRO 1 UNIT/0.01 ML UNIT SQ SCH ×2 (07:23→13:18)
[2020-02-16 07:47] LABS: Blood Urea Nitrogen 62 mg/dl (8-23); Glomerular Filtration Rate 16
[2020-02-16] MEDS ORDERED: predniSONE 5 MG TABLET PO SCH (08:00)
[2020-02-16] MEDS: MUPIROCIN OINT 2% 22GM NARES SCH (08:18)
[2020-02-16] MEDS: CALCIUM W/VIT D3 500 MG TABLET PO SCH (08:19)
[2020-02-16] MEDS: OLMESARTAN MEDOXOMIL 20 MG TABLET PO SCH (08:19)
[2020-02-16] MEDS: DOCUSATE SODIUM 100 MG CAPSULE PO SCH (08:19)
[2020-02-16] MEDS: VITAMIN B COMPLEX 1 CAPSULE PO SCH (08:19)
[2020-02-16] MEDS: ATORVASTATIN 40 MG TABLET PO SCH (08:19)
[2020-02-16] MEDS: FUROSEMIDE 40 MG/4 ML VIAL IV SCH (08:19)
[2020-02-16] MEDS: LACTOBACILLUS 1 CAPSULE PO SCH (08:19)
[2020-02-16] MEDS: CLOPIDOGREL 75 MG TABLET PO SCH (08:19)
[2020-02-16] MEDS: MULTIVIT,THER IRON,CA,FA & MIN 1 TABLET PO SCH (08:19)
[2020-02-16] MEDS: PYRIDOXINE 100 MG TABLET PO SCH (08:19)
[2020-02-16] MEDS: ANORO ELLIPTA INH SCH (08:20)
[2020-02-16] MEDS: TACROLIMUS 1 MG CAPSULE PO SCH (08:20)
[2020-02-16] MEDS: INSULIN GLARGINE, HUMAN 1 UNIT/0.01 ML SQ SCH (08:20)
[2020-02-16] MEDS: BUDESONIDE 0.5 MG/2 ML AMPUL.NEB NEB SCH (08:50)
[2020-02-16] MEDS ORDERED: amLODIPine 10 MG TABLET PO SCH (09:00)
[2020-02-16] MEDS ORDERED: WARFARIN 3 MG TABLET PO ONE (14:00)
--- NOTE | 2020-02-16 14:26 | Discharge Summary ---
Medical - DS: Prov Patient information: Note initiated : 02/16/20 at 2:24 pm Service Date, if different from initiated Date: [] Patient: Ariadna Jean a 79 y/o F admitted on 02/14/20 for shortness of breath. Chief Complaint: [] Refer to HP by Vanessa Dumont M.D.> 02/14/20 Ms. 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 As per patient, patient has been having flu symptoms including runny nose, sore throat and a cough with small amount yellowish sputum over the past days. She also noticed both legs more swelling. Otherwise she is fine. Denies headache, dizziness, chest pain, abdominal pain, or dysuria. No recent travel and sick contact. Patient lives home with her sister. In the ER, she had one episode of desaturation to 88%. 1 dose azithromycin and Rocephin was given. Respiratory panel and Covid 19 were ordered. When I saw this patient, other than the symptoms mentioned above, patient was fine. Date of admission: 02/14/20 03:34 Discharge date: 02/16/20 Primary care physician: Keysha Lopez Consults: 02/15/20 12:07 Consult to Physician [CONS] Routine Comment: Bilateral great toe wounds Consulting Provider: Narendra Bernal Reason For Exam: Physician to Consult 02/15/20 12:10 Consult to Physician [CONS] Routine Comment: Bilateral great toe wounds Consulting Provider: Alejo Bansal Reason For Exam: Physician to Consult Medical - DS: Meds - Discharge Medications Prescriptions: Mupirocin Oint 2% [Bactroban Oint 2%] 1 applic TOPICAL PRN PRN #1 tube PRN Reason: Disinfection Transmission Status: Pending to [facility] [place] Insulin Lispro [Humalog] See Protocol SQ ACHS 14 Days #200 unit Transmission Status: Pending to [facility] [place] Insulin Glargine, Human [Lantus] 30 unit SQ DAILY #10 ml Transmission Status: Pending to [facility] [place] amLODIPine [Norvasc] 10 mg PO DAILY #30 tab Transmission Status: Pending to [address] Budesonide [Pulmicort] 0.5 mg NEB Q12 14 Days #2 vial Transmission Status: Pending to [address] Albuterol Sulfate [Ventolin] 1 puff INH Q4HP PRN 14 Days #2 vial PRN Reason: Shortness Of Breath Transmission Status: Pending to [address] Active and Home Medications: Home Medications LORazepam [Ativan] 1 mg PO HS PRN 12/06/16 [History Confirmed 02/14/20 Last Taken 02/13/20 21:00 1 mg] Multivitamin [Multi-Day Vitamins] 1 each PO DAILY 12/06/16 [History Confirmed 02/14/20 Last Taken 02/13/20 12:00 1 tab] Tacrolimus [Prograf] 2 mg PO BID 12/06/16 [History Confirmed 02/14/20 Last Taken 02/13/20 21:00 1 mg] Warfarin Sodium [Jantoven] 5 mg PO DAILY 12/06/16 [History Confirmed 02/14/20 Last Taken 02/13/20 21:00 5 mg] predniSONE [Prednisone] 2.5 mg PO DAILY 12/06/16 [History Confirmed 02/14/20 L ast Taken 02/13/20 12:00 2.5 mg] Mirtazapine [Remeron] 15 mg PO HS 11/07/19 [History Confirmed 02/14/20 Last Taken 02/13/20 21:00 15 mg] Warfarin [Coumadin] 1 mg PO DAILY 11/07/19 [History Confirmed 02/14/20 Last Taken 02/13/20 21:00 1 mg] clopidogrel 75 mg tablet 75 mg PO QDAY 01/15/20 [History Confirmed 02/14/20 Last Taken 02/13/20 12:00 75 mg] ketoconazole 2 % topical cream 1 applic TOPICAL PRN PRN 01/15/20 [History Confirmed 02/14/20 Last Taken Unknown] magnesium oxide 400 mg (241.3 mg magnesium) tablet 400 mg PO QDAY 01/15/20 [History Confirmed 02/14/20 Last Taken 02/13/20 12:00 400 mg] mupirocin 2 % topical ointment 1 applic TOPICAL PRN PRN 01/15/20 [History Confirmed 02/14/20 Last Taken Unknown] olmesartan 20 mg tablet 20 mg PO QDAY tab 01/15/20 [History Confirmed 02/14/20 Last Taken 02/13/20 12:00 20 mg] potassium chloride 10 mEq capsule,extended release 10 meq PO QDAY 01/15/20 [History Confirmed 02/14/20 Last Taken 02/13/20 12:00 10 meq] rosuvastatin 20 mg tablet 20 mg PO QDAY 01/15/20 [History Confirmed 02/14/20 Last Taken 02/13/20 12:00 20 mg] torsemide 10 mg tablet 10 mg PO QDAY 01/15/20 [History Confirmed 02/14/20 Last Taken 02/13/20 12:00 10 mg] umeclidinium 62.5 mcg-vilanterol 25 mcg/actuation powdr for inhalation 1 inh INHALATION QDAY 01/15/20 [History Confirmed 02/14/20 Last Taken 02/13/20 21:00 1 puff] lactobacillus combination no.8 3 billion cell capsule 3,000 mmu cells PO QDAY 01/16/20 [History Confirmed 02/14/20 Last Taken 02/13/20 12:00 3000 mmu] pyridoxine (vitamin B6) 100 mg tablet 100 mg PO QDAY 01/16/20 [History Confirmed 02/14/20 Last Taken 02/13/20 12:00 100 mg] amlodipine 2.5 mg tablet 2.5 mg PO .COMPLEX #0 tab 02/10/20 [Rx Confirmed 02/14/20 Last Taken 02/13/20 12:00 5 mg] Basaglar Kwikpen U-100 30 units SUBCUT DAILY 02/14/20 [History Confirmed 02/14/20 Last Taken 02/13/20 21:00 30 units] Calcium Carbonate/Vitamin D3 [Os-Artie 500-Vit D3 200 Caplet] 500 mg PO DAILY 02/14/20 [History Confirmed 02/14/20 Last Taken 02/13/20 12:00 500 mg] Mycophenolate [Cellcept] 750 mg PO BID 02/14/20 [History Confirmed 02/14/20 Last Taken 02/13/20 21:00 750 mg] Medical - DS: Hosp Hospital Course: 1. Acute hypoxemic respiratory failure 2. COPD exacerbation 3. CHF, type and chronicity unknown 4. transplanted heart 5. Acute on CKD stage IV 6. Paroxysmal atrial fibrillation 7. Positive MRSA screen 8. Gangrene toes of both feet 9. Pulmonary nodule - 6 mm left upper lobe nodule. follow-up chest CT in one year Plan: 1. Pulse ox continuous Oxygen, now she is on 0.5L NC. She was treated with Prednisone 30 mg daily but it was quickly discontinued since her SOB improved. home prednisone 2.5mg daily was resumed. Steroid and immunosuppressants reduce the ability to fight viral infection including covid 19 if it is positive. Initially she was treated with ceftriaxone for her gangrene toes and copd exacerbation/bronchitis. It was discontinued. Inhalers CT of the chest - Mild scarring or atelectasis in both lung bases with the greatest involvement in the right lower lobe; Mild cardiomegaly; Possible bronchitis and emphysema; Influenza a and B- negative Covid 19 screen was sent, result pending Repeat CXR - improving aeration in both lungs and decreased cardiomegaly. 2. Patient has a low chance of PE because the patient had been on warfarin with a therapeutic INR 3. Patient denies CHF. however, she underwent heart transplantation 13 years ago due to heart failure. Elevated BNP, 1558. Echo report pending Lasix 40 mg IV twice daily was discontinued yesterday because she is euvolemic now and creatinine went up. Intake and output Daily weight Trop negative x 3 4. Atrial fibrillation, heart rate is controlled. on warfarin with a therapeutic INR. Continue warfarin. Dosing by pharmacy 5. Mupirocin BID for positive MRSA screening 6. Podiatry Dr. Bernal felt she does not need procedure and abx for her gangrene toes at this moment. 7. GI and DVT prophylaxis: Pantoprazole and warfarin 8. CODE STATUS: DNR and DNI 02/14 Pt feels better, less SOB. Denies fever/chills. But still feels mild nauseous. Covid -19 test - still pending She has gangrene toes and has been f/u with her podiatry but she would like to see our podiatry here. Podiatry and wound care consult Hb 10.7 Creatinine went up to 2.2 from 1.9 yesterday. She is on lasix 40mg iv bid. Good urine output 02/15 She feels much better, less sob. Abx was discontinued and steroid was decreased to her home dose for her transpla nted heart. She is on RM during day with good saturation. She has CPAP at home. She uses CPAP at night. Her creatinine went up to 2.7 today due to use of lasix which was discontinued yesterday afternoon. 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 She was advised to see her motor boss in 3 days to make sure creatinine back to her normal. Repeat renal function and electrolytes in 3 days. She promised me to do this. Lomesartan is on hold due to ZULY. monitor BP. She needs to see her podiatry. Covid -19 test - still pending. She livers with sister in a trailer. CM spoke to sister who has confidence to handle her and isolate appropriately. Discussed with supervisor inspection Nadira who agreed to send pt to home today. We will f/u Covid - 19 test result. In case it is positive, we will inform pt and pcp and manage pt based on her condition. Pt understood there would be a higher risk to get covid 19 infection in hospital setting if she is negative for it. Pt will be discharged to home today to f/u with pcp, nephrology, cardiology,and podiatry. Check blood electrolytes and renal function in 3 days. Check INR weekly. call pcp for medical issue. Discharge diagnosis: COPD exacerbation, respiratory failure, CHF and ZULY and CKD. - Time Spent with Patient Total time spent providing and/or coordinating discharge services: Greater than 30 minutes Medical - DS: Exam - Constitutional Vitals: Vital Signs Temp Pulse Resp BP Pulse Ox 02/16/20 13:00 71 13 119/71 96 02/16/20 12:00 16 128/65 02/16/20 11:33 18 132/70 02/16/20 11:00 74 15 159/129 94 02/16/20 09:01 97.8 F 83 23 H 145/87 97 02/16/20 08:02 97.7 F 65 23 H 147/76 94 02/16/20 08:00 15 94 02/16/20 07:02 97.5 F 59 L 14 195/75 98 02/16/20 06:04 97.7 F 60 19 178/75 94 02/16/20 06:02 97.6 F 59 L 19 171/69 97 02/16/20 05:02 97.7 F 60 16 160/71 94 02/16/20 04:02 97.7 F 19 144/120 02/16/20 03:02 97.8 F 63 20 162/80 97 02/16/20 02:02 97.7 F 26 H 151/87 02/16/20 01:02 98.2 F 21 153/68 02/16/20 00:02 98.4 F 17 163/93 98 02/15/20 23:02 98.7 F 67 25 H 165/72 93 02/15/20 22:00 98.9 F 68 22 162/85 95 02/15/20 21:00 99.0 F 21 121/65 02/15/20 20:00 98.9 F 17 111/60 02/15/20 19:00 99.1 F H 85 23 H 117/77 96 02/15/20 18:17 99.2 F H 81 20 117/75 93 02/15/20 18:00 99.1 F H 88 23 H 117/75 95 02/15/20 17:01 98.7 F 82 23 H 130/78 93 02/15/20 16:01 98.6 F 73 14 153/72 92 02/15/20 15:01 98.5 F 73 10 L 159/75 98 Intake and Output 02/16/20 02/16/20 02/16/20 05:59 13:59 21:59 Intake Total 480 540 Output Total 675 1000 Balance -195 -460 Intake: Oral 480 540 Output: Urine Catheter Amount 675 750 Void Amount 250 Other: Meal Breakfast Percent of Meal Consumed 100% Urine Appearance Clear Clear Uretheral ([place]) Clear Urine Color Bright Yellow Bright Yellow Uretheral ([place]) Pale Urine Odor Normal Weight 87.815 kg Patient Weight 02/17/20 05:59 Weight 87.815 kg - Other Additional findings: General - NAD, sitting up in bed, well groomed Eyes - PERRLA, EOM intact ENT no rhinorrhea, no noticeable or palpable swelling, no redness or rash around throat or on face Neck supple, no JVD, no thyromegaly Respiratory: Lungs - no use of accessory muscles, silent, crackles over left field (improved). Cardiovascular - RRR no m/r/g, GI - Normal bowel sounds, no distended, soft and no tenderness Extremeties - No edema, cyanosis or clubbing Musculo Skeletal - 5/5 strength, normal range of motion, no swollen or erythematous joints. Hemo/lymphatic/immune no lymphadenopathy Neurological Alert and oriented x 3, CN 2-12 grossly intact. Psychiatry flat affect Medical - DS: Data Labs on day of discharge: Labs from last 24 hours 02/16/20 02/16/20 02/16/20 05:19 05:19 05:19 WBC 6.3 RBC 3.95 Hgb 10.7 L Hct 35.3 MCV 89.4 MCH 27.1 MCHC 30.3 L RDW 14.0 Plt Count 215 MPV 9.5 Gran % 73.7 Lymph % (Auto) 18.1 [place] % (Auto) 7.4 Eos % (Auto) 0.5 Baso % (Auto) 0.3 Gran # 4.61 Lymph # (Auto) 1.13 L [place] # (Auto) 0.46 Eos # (Auto) 0.03 Baso # (Auto) 0.02 PT 26.5 H INR 2.4 H Sodium 139 Potassium 3.9 Chloride 101 Carbon Dioxide 20 L Anion Gap 18.0 H BUN 62 H Creatinine 2.7 H GFR Calculation 16 Glucose 90 Calcium 8.3 L Total Bilirubin < 0.2 AST 14 ALT 18 Alkaline Phosphatase 58 Total Protein 6.1 Albumin 3.3 Globulin 2.8 Albumin/Globulin Ratio 1.2 Preliminary micro results at discharge 02/14/20 02:49 Blood Culture - Preliminary Blood 02/14/20 03:00 Blood Culture - Preliminary Blood Medical - DS: A/P - Patient/Caregiver Discharge Instructions Activity: increase activity as tolerated Diet: Renal/Consistent Carbs - Follow up Plan Follow up with: Keysha Lopez MD [Primary Care Provider] - (Please call to schedule a post hospital appointment after your 2 week quarantine period is over. Please get your lab work done at your Primary Care Physicians office.) Emmanuelle Javed MD [Physician] - (Please call to schedule an appointment if you are negative for Covid19 or after your 2 week quarantine period.) nephrology [Other] (in 3 days. ) cardiology [Other] (in one week) podiatry [Other] (within one week) Disposition: Home, Self-Care Care Plan Goals: This discharge packet is provided to you to help keep you informed about your care. We want to ensure you get everything you need when you go home. You will also be receiving a call from us in a few days to follow up with you and see how you are doing since your discharge. This gives us a chance to listen to any concerns you maybe experiencing since you were discharged or any additional needs you may have, as well as providing us feedback on your care experience. We strive to always provide excellent care and thank you for your feedback and for choosing [facility]. Prognosis: Fair Rehab Potential: Fair
--- NOTE | 2020-02-23 09:18 | Orthopedic Consult Note ---
History of Present Illness - HPI Patient information: Note initiated : 02/23/20 at 9:16 am Service Date, if different from initiated Date: [] Patient: Ariadna Jean 79 y/o F admitted on 02/14/20 for shortness of breath. Chief Complaint: [black toes] Consult date: 02/14/20 Requesting physician: Vanessa Dumont Consult reason: other (black toes) History of present illness: She has a long history of vascular work to her lower extremities. She currently has black discoloration to the skin on the great toes of both feet. She has an appointment with the vascular provider soon. Review of Systems Constitutional: other Medications and Allergies Home Medications Medication Instructions Recorded Confirmed Type Multivitamin [Multi-Day Vitamins] 1 each PO DAILY 12/06/16 02/14/20 History Tacrolimus [Prograf] 2 mg PO BID 12/06/16 02/14/20 History Warfarin Sodium [Jantoven] 5 mg PO DAILY 12/06/16 02/14/20 History predniSONE [Prednisone] 2.5 mg PO DAILY 12/06/16 02/14/20 History Mirtazapine [Remeron] 15 mg PO HS 11/07/19 02/14/20 History Warfarin [Coumadin] 1 mg PO DAILY 11/07/19 02/14/20 History clopidogrel 75 mg tablet 75 mg PO QDAY 01/15/20 02/14/20 History rosuvastatin 20 mg tablet 20 mg PO QDAY 01/15/20 02/14/20 History umeclidinium 62.5 mcg-vilanterol 1 inh INHALATION QDAY 01/15/20 02/14/20 History 25 mcg/actuation powdr for inhalation lactobacillus combination no.8 3 3,000 mmu cells PO QDAY 01/16/20 02/14/20 History billion cell capsule pyridoxine (vitamin B6) 100 mg 100 mg PO QDAY 01/16/20 02/14/20 History tablet Basaglar Kwikpen U-100 30 units SUBCUT DAILY 02/14/20 02/14/20 History Calcium Carbonate/Vitamin D3 500 mg PO DAILY 02/14/20 02/14/20 History [Os-Artie 500-Vit D3 200 Caplet] Mycophenolate [Cellcept] 750 mg PO BID 02/14/20 02/14/20 History Accu-Chek 1 each FS ACHS strip 02/16/20 Rx Albuterol Sulfate [Ventolin] 1 puff INH Q4HP PRN 14 Days #2 vial 02/16/20 Rx Budesonide [Pulmicort] 0.5 mg NEB Q12 14 Days #2 vial 02/16/20 Rx Insulin Glargine, Human [Lantus] 30 unit SQ DAILY #10 ml 02/16/20 Rx Insulin Lispro [Humalog] See Protocol SQ ACHS 14 Days #200 02/16/20 Rx unit Mupirocin Oint 2% [Bactroban Oint 1 applic TOPICAL PRN PRN #1 tube 02/16/20 Rx 2%] amLODIPine [Norvasc] 10 mg PO DAILY #30 tab 02/16/20 Rx Allergies Allergy/AdvReac Type Severity Reaction Status Date / Time Heparin Analogues Allergy 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 Follow-up with vascular provider. No antibiotics needed at this point.
== END 2020-02-16 16:30 | disposition home or self-care (01) | DRG 189 ==
LOC: ED 21:23 → ICU 02-14 03:34
PROVIDERS: ADMIT Internal Medicine; ATTEND Internal Medicine

== ENCOUNTER 2021-06-07 08:00 | Observation (INO) ==
[2021-06-07] MEDS ORDERED: 0.9 % SODIUM CHLORIDE 500 ML IV ONE (08:26)
[2021-06-07] MEDS ORDERED: ONDANSETRON 4 MG/2 ML VIAL IV ONE ×2 (08:26→10:27)
--- NOTE | 2021-06-07 08:30 | Emergency Department Note ---
Nausea/Vomiting/Diarrhea HPI General Chief complaint: Nausea/Vomiting/Diarrhea Stated complaint: N/V/D x 2 days Time Seen by Provider: 06/07/21 08:07 Source: patient and family Mode of arrival: wheelchair History of Present Illness HPI Narrative: 81-year female presents with chief complaint of nausea vomiting and diarrhea for the last couple of days. The stool is watery. Denies any recent travel or ill contacts. Patient's had this intermittently for several weeks. She has had a history of C. difficile colitis. She had some chest and back pain last night when she was vomiting. Denies any chest pain at this time. Denies any fevers or chills. Denies any shortness of breath. Patient has a history of heart transplant is on multiple immunosuppressants.. This patient has end-stage renal failure and is due for hemodialysis today. Generally does not make a lot of urine but did urinate today. Has recently been on antibiotics . Related Data Home Medications Medication Instructions Recorded Confirmed multivitamin 1 each PO DAILY 12/06/16 02/03/21 prednisone 2.5 mg PO DAILY 12/06/16 02/03/21 warfarin 1 mg PO DAILY 11/07/19 02/03/21 clopidogrel 75 mg tablet 75 mg PO QDAY 01/15/20 02/03/21 umeclidinium 62.5 mcg-vilanterol 1 inh INHALATION QDAY 01/15/20 02/03/21 25 mcg/actuation powdr for inhalation Basaglar Kwikpen U-100 30 units SUBCUT DAILY 02/14/20 02/03/21 ascorbic acid (vitamin C) 500 mg mg PO 01/21/21 02/03/21 capsule cholecalciferol (vitamin D3) 50 50 mcg PO QDAY 01/21/21 02/03/21 mcg (2,000 unit) capsule fluorouracil 5 % topical cream 1 applic TOPICAL BID 01/21/21 02/03/21 lorazepam 1 mg tablet 0.5 mg PO QHS tab 01/21/21 02/03/21 mirtazapine 15 mg tablet 15 mg PO HS tab 01/21/21 02/03/21 tacrolimus 1 mg capsule, 1 mg PO TID cap 01/21/21 02/03/21 immediate-release Prograf 1 mg PO DAILY 06/07/21 06/07/21 hydrocodone-acetaminophen [[place]] 1 tab PO PRN PRN 06/07/21 06/07/21 metolazone 2.5 mg PO WEEKLY 06/07/21 06/07/21 mycophenolate mofetil [CellCept] 250 mg PO BID 06/07/21 06/07/21 Previous Rx's Medication Instructions Recorded Accu-Chek 1 each FS ACHS strip 02/16/20 insulin glargine 30 unit SQ DAILY #10 ml 02/16/20 olmesartan 5 mg tablet 5 mg PO QDAY #30 tab 12/15/20 torsemide 100 mg tablet See Rx Instructions PO .COMPLEX 01/21/21 #90 tab cephalexin 500 mg PO QID #40 cap 05/21/21 Allergies Allergy/AdvReac Type Severity Reaction Status Date / Time Heparin Analogues Allergy Severe HIT (+) IN Verified 06/07/21 08:05 2004 (USED FRAGMIN IN 2006 = OK) spironolactone AdvReac Intermediate Diarrhea Verified 06/07/21 08:05 Sulfa (Sulfonamide AdvReac Mild Nausea/Vomi Verified 06/07/21 08:05 Antibiotics) ting Review of Systems ROS ROS Narrative: Narrative: All systems ED: reviewed and negative except as stated. Constitutional: Denies fever, chills and sweats Eyes: Denies vision change ENT ED: Denies throat pain and congestion Cardiovascular: Reports chest pain (With vomiting) Respiratory: Denies shortness of breath and cough Gastrointestinal: Reports vomiting and diarrhea Musculoskeletal: Reports back pain Integumentary: Denies rash Neurological: Denies headache and dizziness Psychiatric: Denies anxiety, suicidal thoughts and homicidal thoughts Endocrine: Denies polydipsia and polyuria Hematological/Lymphatic: Denies easy bleeding and easy bruising PFSH Narrative Patient History Narrative: Narrative: Medical/Surgical/Family History All Active Problems (Updated 06/07/21 @ 14:07 by Rahel Barcenas MD) Complicated UTI (urinary tract infection) (Chronic) Falls frequently (Chronic) Heart transplant status (Chronic ~04/2005) COPD (chronic obstructive pulmonary disease) (Chronic) HTN (hypertension) (Chronic) DVT (deep venous thrombosis) (Chronic) Peripheral vascular disease (Chronic) Mild cognitive impairment (Chronic) Anxiety disorder (Chronic) Major depressive disorder, single episode, moderate (Chronic) Situational anxiety (Chronic) Infection of superficial incisional surgical site after procedure (Chronic) Immunosuppressed status (Chronic) Expressive aphasia (Chronic) CKD (chronic kidney disease), stage IV (Chronic) GERD (gastroesophageal reflux disease) (Chronic) Hyperlipidemia (Chronic) Diabetes mellitus, type II (Chronic) Depression with anxiety (Chronic) Pulmonary embolism (Chronic) 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) Medically complex patient (Chronic) Obesity (BMI 30.0-34.9) (Chronic) senior living (current) use of anticoagulants (Chronic) Shortness of breath (Acute) Asthma exacerbation (Acute) Abnormal CT scan, chest (Acute) DNR (do not resuscitate) (Chronic) Exercise hypoxemia (Acute) Gangrene (Acute) Chronic kidney disease (CKD) stage G4/A3, severely decreased glomerular filtration rate (GFR) between 15-29 mL/min/1.73 square meter and albuminuria creatinine ratio greater than 300 mg/g (Chronic) Volume overload (Chronic) Anemia in CKD (chronic kidney disease) (Chronic) BK viruria (Acute) Heart transplant recipient (Acute) CHF (congestive heart failure) (Acute) Nephrotic range proteinuria (Chronic) Secondary hyperparathyroidism of renal origin (Acute) 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 difficile diarrhea (Acute) Diarrhea (Acute) Cellulitis (Acute) Intractable nausea and vomiting (Acute) End stage renal failure on dialysis (Chronic) Diarrhea (Acute) Medical History (Updated 06/07/21 @ 14:07 by Rahel Barcenas MD) Anxiety disorder situational, mild Cellulitis CKD (chronic kidney disease), stage IV Complicated UTI (urinary tract infection) COPD (chronic obstructive pulmonary disease) Depression with anxiety Diabetes mellitus, type II DNR (do not resuscitate) per discussion in ER 02-14-2020 DVT (deep venous thrombosis) Expressive aphasia Falls frequently GERD (gastroesophageal reflux disease) History of cardiac pacemaker History of MRSA infection left lower extremity laceration infection late 2018 or early 2019. 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 Surgical History Heart transplant status (~04/2005) History of cataract surgery History of lumpectomy History of vascular surgery Multiple [id number] S/P CABG x 3 Status post surgical removal of malignant neoplasm of skin Family History Father CHF (congestive heart failure) Heart disease, congenital Mother CHF (congestive heart failure) Heart disease, congenital Diabetes mellitus, type II Family/Other Dementia Paternal/Maternal Aunt Diabetes mellitus, type II Paternal/Maternal Aunt Brother Diabetes mellitus, type II CHF (congestive heart failure) Social History Smoking Status: Former smoker Exam Narrative Narrative: Vital Signs reviewed. Constitutional: Awake alert no acute distress well-nourished well-developed Head: Normocephalic, atraumatic Eyes: PERRLA, EOMI, no conjunctivitis Ear: Normal canals and TM's Oropharynx: moist oral mucosa, no edema, no erythema, no exudate Neck: Supple, no lymphadenopathy, no JVD Lungs: Breathing unlabored, lungs clear Cardiac: Regular rate and rhythm, normal distal pulses, GI: Soft nontender nondistended no guarding no rebound Musculoskeletal: No tenderness, no deformities, no edema, full range of motion Back: no CVA or midline tenderness Neuro: Awake alert, cranial nerves II through XII grossly intact, no focal motor or sensory deficits Psychiatric: Normal mood and affect Skin: Warm dry no rash, cap refill less than 2 seconds Course Consultations Consultation #1: Case discussed with hospitalist, Dr. Nunn, would like to dickerson ve the patient have additional and alternative antiemetics prior to considering observation the hospital. He would also like the occupational therapy assistant to be consulted prior to agreeing to observing the patient in the hospital. Time: 13:38 Consultation #2: Discussed with occupational therapy assistant, Dr. Barcenas, who agrees to see the patient in consultation. He recommended to exercise extreme caution in using any alternative antiemetics because of the potential side effects. Time: 13:43 Consultation #3: This discussed with Dr. Nunn hospitalist who agrees to see patient for admission at this time. Time: 15:38 Vital Signs Vital signs: Vital Signs Temperature 97.0 F 06/07/21 08:01 Pulse Rate 102 H 06/07/21 08:01 Respiratory Rate 20 06/07/21 08:01 Blood Pressure 145/95 06/07/21 08:01 Pulse Oximetry (%) 96 06/07/21 08:01 Temperature 97.0 F 06/07/21 08:01 Pulse Rate 91 H 06/07/21 15:35 Respiratory Rate 18 06/07/21 15:35 Blood Pressure 161/61 06/07/21 15:30 Pulse Oximetry (%) 95 06/07/21 15:35 MDM MDM Narrative Medical decision making narrative: 81 year old female presents with vomiting diarrhea. Patient is a hemodialysis patient Sunday. Had prior similar symptoms. She has some mild diffuse cramping. Patient received several doses of Zofran and 500 cc bolus of normal saline but despite this continues to have intractable nausea vomiting. Still having some loose stools which she says are more chronic in nature. Due to intractable nausea vomiting patient will need to be observed in the hospital. Differential Diagnosis Differential Diagnosis: Gastroenteritis, C. difficile colitis, dehydration, electrolyte abnormality Lab Data Result diagrams: 06/07/21 09:04 06/07/21 09:04 Labs: Lab Results 06/07/21 06/07/21 06/07/21 Range/Units 09:03 09:04 09:04 WBC 4.4 L (4.5-11.0) K/mcL RBC 3.43 L (4.00-5.20) M/mcL Hgb 10.2 L (12.0-15.0) g/dL Hct 33.0 L (36.0-48.0) % MCV 96.2 (80.0-100.0) fL MCH 29.7 (26.0-34.0) pg MCHC 30.9 L (31.0-36.0) g/dL RDW 14.6 H (11.5-14.5) % Plt Count 201 (140-440) K/mcL MPV 9.2 (7.4-10.4) fL Neut % (Auto) 84.7 H (38.0-78.0) % Lymph % (Auto) 9.8 L (15.0-49.0) % [place] % (Auto) 4.8 (1.0-12.0) % Eos % (Auto) 0.2 (0.0-7.0) % Baso % (Auto) 0.5 (0.0-2.0) % Lymph # (Auto) 0.43 L (1.50-4.80) K/mcL [place] # (Auto) 0.21 (0.10-0.90) K/mcL Eos # (Auto) 0.01 (0.00-0.70) K/mcL Baso # (Auto) 0.02 (0.00-0.20) K/mcL Absolute Neutrophils 3.73 (1.80-8.00) K/mcL PT 21.7 H (11.9-14.5) sec INR 1.8 H (0.9-1.1) Sodium 135 (133-145) mmol/L Potassium 3.6 (3.3-5.1) mmol/L Chloride 97 (96-108) mmol/L Carbon Dioxide 22 (22-30) mmol/L Anion Gap 16.0 (8.0-16.0) BUN 19 (8-23) mg/dL Creatinine 4.3 H (0.6-1.1) mg/dL GFR Calculation 9 Glucose 171 H (70-105) mg/dL Calcium 9.0 (8.6-10.4) mg/dL Total Bilirubin 0.4 (0.1-1.0) mg/dL AST 32 H (<32) U/L ALT 38 (<40) U/L Alkaline Phosphatase 78 (39-117) U/L Total Protein 6.3 (5.9-8.4) gm/dL Albumin 3.6 (3.2-5.2) gm/dL Globulin 2.7 (2.2-3.7) gm/dL Albumin/Globulin Ratio 1.3 (1.0-2.3) Urine Color Urine Appearance (Clear) Urine pH (5.0-9.0) Ur Specific [place] (1.000-1.035) Urine Protein (Negative) mg/dL Urine Glucose (UA) (Negative) mg/dL Urine Ketones (Negative) mg/dL Urine Occult Blood (Negative) mg/dL Urine Nitrate (Negative) Urine Bilirubin (Negative) mg/dL Urine Urobilinogen mg/dL Ur Leukocyte Esterase (Negative) /ug Urine RBC (0-3) /hpf Urine WBC (0-4) /hpf Ur Squamous Epith Cells (0-4) /hpf Ur Transition Epith Cell (0-2) /hpf Urine Bacteria (0) /hpf Urine Mucus (None) /hpf Ur Culture Indicated? 06/07/21 Range/Units 12:39 WBC (4.5-11.0) K/mcL RBC (4.00-5.20) M/mcL Hgb (12.0-15.0) g/dL Hct (36.0-48.0) % MCV (80.0-100.0) fL MCH (26.0-34.0) pg MCHC (31.0-36.0) g/dL RDW (11.5-14.5) % Plt Count (140-440) K/mcL MPV (7.4-10.4) fL Neut % (Auto) (38.0-78.0) % Lymph % (Auto) (15.0-49.0) % [place] % (Auto) (1.0-12.0) % Eos % (Auto) (0.0-7.0) % Baso % (Auto) (0.0-2.0) % Lymph # (Auto) (1.50-4.80) K/mcL [place] # (Auto) (0.10-0.90) K/mcL Eos # (Auto) (0.00-0.70) K/mcL Baso # (Auto) (0.00-0.20) K/mcL Absolute Neutrophils (1.80-8.00) K/mcL PT (11.9-14.5) sec INR (0.9-1.1) Sodium (133-145) mmol/L Potassium (3.3-5.1) mmol/L Chloride (96-108) mmol/L Carbon Dioxide (22-30) mmol/L Anion Gap (8.0-16.0) BUN (8-23) mg/dL Creatinine (0.6-1.1) mg/dL GFR Calculation Glucose (70-105) mg/dL Calcium (8.6-10.4) mg/dL Total Bilirubin (0.1-1.0) mg/dL AST (<32) U/L ALT (<40) U/L Alkaline Phosphatase (39-117) U/L Total Protein (5.9-8.4) gm/dL Albumin (3.2-5.2) gm/dL Globulin (2.2-3.7) gm/dL Albumin/Globulin Ratio (1.0-2.3) Urine Color Yellow Urine Appearance Clear (Clear) Urine pH 8.0 (5.0-9.0) Ur Specific [place] 1.008 (1.000-1.035) Urine Protein 100 A (Negative) mg/dL Urine Glucose (UA) 50 A (Negative) mg/dL Urine Ketones Negative (Negative) mg/dL Urine Occult Blood Negative (Negative) mg/dL Urine Nitrate Negative (Negative) Urine Bilirubin Negative (Negative) mg/dL Urine Urobilinogen Negative mg/dL Ur Leukocyte Esterase Negative (Negative) /ug Urine RBC < 1 (0-3) /hpf Urine WBC < 1 (0-4) /hpf Ur Squamous Epith Cells 1 (0-4) /hpf Ur Transition Epith Cell < 1 (0-2) /hpf Urine Bacteria None (0) /hpf Urine Mucus Few A (None) /hpf Ur Culture Indicated? No ED POC Tests ED POC Tests: ERI - SARS Antigen Negative Radiology Data Radiology results reviewed: Yes I reviewed the patient's radiology results. Radiology results narrative: IMPRESSION: Severe atherosclerotic disease with hemodynamically significant stenoses at their origins of the superior mesenteric artery, inferior mesenteric artery, both renal arteries and left common iliac artery No evidence of ischemic bowel or bowel obstruction Small incidental gallstone Dr. Camargo was called with the report Interpreted and Authenticated by: Chaitanya Gorman 06/07/21 EKG Data EKG #1: EKG attestation: Yes I reviewed and interpreted this EKG. and Yes There are no EKG findings of acute coronary syndrome EKG results narrative: EKG performed 831 shows sinus rhythm rate of 87 normal axis and intervals no ectopy nonspecific ST changes Discharge Plan Patient/Caregiver Discharge Instructions Pt seen by DINING ROOM HOST/PA only: No Clinical Impression: Intractable nausea and vomiting, End stage renal failure on dialysis, Diarrhea Patient Disposition: Xfer As Outpt/Obs ([facility]) Condition: Fair Follow up with: Keysha Lopez MD [Primary Care Provider] - Prescriptions: No Action umeclidinium 62.5 mcg-vilanterol 25 mcg/actuation powdr for inhalation 62.5-25 mcg/actuation blister with device 1 inh INHALATION QDAY RF: 0 clopidogrel [Plavix] 75 mg tablet 75 mg PO QDAY RF: 0 olmesartan 5 mg tablet 5 mg PO QDAY Qty: 30 RF: 11 Hold Instructions: Doctor's Order lorazepam 1 mg tablet 0.5 mg PO QHS RF: 0 cholecalciferol (vitamin D3) 50 mcg (2,000 unit) capsule 50 mcg PO QDAY RF: 0 ascorbic acid (vitamin C) 500 mg capsule 500 mg PO DAILY RF: 0 fluorouracil 5 % cream 1 applic topical BID RF: 0 torsemide 100 mg tablet See Rx Instructions PO .COMPLEX Qty: 90 RF: 3 multivitamin 1 EACH tablet 1 each PO DAILY RF: 0 prednisone 2.5 MG tablet 2.5 mg PO DAILY RF: 0 tacrolimus 1 mg capsule 1 mg PO TID RF: 0 warfarin 1 MG tablet 3 mg PO DAILY RF: 0 mirtazapine 15 mg tablet 15 mg PO HS RF: 0 Basaglar Kwikpen U-100 30 units subcut DAILY RF: 0 Accu-Chek 1 EACH strip 1 each FS ACHS RF: 0 insulin glargine 1 UNIT/0.01 ML unit 30 unit SQ DAILY Qty: 10 RF: 0 cephalexin 500 mg capsule 500 mg PO QID Qty: 40 RF: 0 metolazone 2.5 mg Tablet 2.5 mg PO WEEKLY RF: 0 hydrocodone-acetaminophen [[place]] 5-325 mg Tablet 1 tab PO PRN PRN (Reason: Pain) RF: 0 Prograf 1 mg PO DAILY RF: 0 mycophenolate mofetil [CellCept] 250 mg Capsule 250 mg PO BID RF: 0
[2021-06-07 09:31] LABS: Basophils # (Auto) 0.02 K/mcL (0.00-0.20); Basophils % (Auto) 0.5 % (0.0-2.0); Eosinophils # (Auto) 0.01 K/mcL (0.00-0.70); Eosinophils % (Auto) 0.2 % (0.0-7.0); Hemoglobin 10.2 g/dL (12.0-15.0); Lymphocytes # (Auto) 0.43 K/mcL (1.50-4.80); Lymphocytes % (Auto) 9.8 % (15.0-49.0); Mean Cell Volume 96.2 fL (80.0-100.0); Mean Corpuscular HGB Conc 30.9 g/dL (31.0-36.0); Mean Platelet Volume 9.2 fL (7.4-10.4); Monocytes # (Auto) 0.21 K/mcL (0.10-0.90); Monocytes % (Auto) 4.8 % (1.0-12.0); Neutrophils % (Auto) 84.7 % (38.0-78.0); Platelet Count 201 K/mcL (140-440); RBC 3.43 M/mcL (4.00-5.20); Red Cell Distribution Width 14.6 % (11.5-14.5); WBC 4.4 K/mcL (4.5-11.0)
[2021-06-07 09:46] LABS: INR 1.8 (0.9-1.1); Prothrombin Time 21.7 sec (11.9-14.5)
[2021-06-07 09:55] LABS: ALT/SGPT 38 U/L (<40); AST/SGOT 32 U/L (<32); Albumin 3.6 gm/dL (3.2-5.2); Albumin/Globulin Ratio 1.3 (1.0-2.3); Alkaline Phosphatase 78 U/L (39-117); Bilirubin,Total 0.4 mg/dL (0.1-1.0); Blood Urea Nitrogen 19 mg/dL (8-23); Carbon Dioxide 22 mmol/L (22-30); Chloride 97 mmol/L (96-108); Globulin 2.7 gm/dL (2.2-3.7); Glomerular Filtration Rate 9; Glucose 171 mg/dL (70-105)
[2021-06-07 12:54] LABS: Appearance,Urine CLEAR (Clear); Bilirubin,Urine Negative (Negative); Color,Urine YELLOW; Culture Indicated,Urine No; Glucose,Urine (UA) 50 mg/dL (Negative); Ketones,Urine Negative (Negative); Leukocyte Esterase,Urine Negative /ug (Negative); Mucus,Urine FEW /hpf; Nitrate,Urine Negative (Negative); Protein,Urine 100 mg/dL (Negative); Specific Gravity,Urine 1.008 (1.000-1.035); Urine Blood Negative (Negative); Urine RBC < 1 /hpf (0-3); Urine Squamous Epithelial Cell 1 /hpf (0-4); Urine Transitional Epi Cells < 1 /hpf (0-2); Urine WBC < 1 /hpf (0-4); Urobilinogen,Urine Negative
[2021-06-07] MEDS ORDERED: LORazepam 2 MG/ML VIAL IV ONE (13:42)
--- NOTE | 2021-06-07 14:11 | Nephrology Consult Note ---
HPI Data of Consult Patient: known to practice within the last 3 years Consult date: 06/07/21 Requesting physician: Jordan Camargo Primary Care Provider: Keysha Lopez Consult Narrative Chief complaint: Abdominal pain, nausea, vomiting and diarrhea Reason for consult: end stage renal disease on hemodialysis History of present illness: Ariadna Jean is a 81-year-old female with end stage renal disease on hemod ialysis, chronic anemia due to ESRD, hypertension, diabetes mellitus type 2 admitted on 06/07/21. Nephrology consultation was requested for end stage renal disease. cc:: CC: Constitutional Constitutional: Present weakness; Absent fever(s) EENT Nose, mouth and throat: Absent nasal congestion and sore throat Cardiovascular Cardiovascular: Absent chest pain and palpatations Respiratory Respiratory: Absent dyspnea and wheezing Gastrointestinal Gastrointestinal: Present abdominal pain, diarrhea, nausea and vomiting Genitourinary Genitourinary: Absent hematuria Integumentary Integumentary: Absent rash and wounds Neurological Neurological: Present weakness; Absent confusion Psychiatric Psychiatric: Absent anxiety and panic attacks Hematologic/Lymphatic Hematologic/Lymphatic: Absent easy bleeding and easy bruising Allergic/Immunologic Allergic/Immunologic: Absent tongue swelling and uticaria PFSH PFSH All Active Problems (Updated 06/07/21 @ 14:07 by Rahel Barcenas MD) Complicated UTI (urinary tract infection) (Chronic) Falls frequently (Chronic) Heart transplant status (Chronic ~04/2005) COPD (chronic obstructive pulmonary disease) (Chronic) HTN (hypertension) (Chronic) DVT (deep venous thrombosis) (Chronic) Peripheral vascular disease (Chronic) Mild cognitive impairment (Chronic) Anxiety disorder (Chronic) Major depressive disorder, single episode, moderate (Chronic) Situational anxiety (Chronic) Infection of superficial incisional surgical site after procedure (Chronic) Immunosuppressed status (Chronic) Expressive aphasia (Chronic) CKD (chronic kidney disease), stage IV (Chronic) GERD (gastroesophageal reflux disease) (Chronic) Hyperlipidemia (Chronic) Diabetes mellitus, type II (Chronic) Depression with anxiety (Chronic) Pulmonary embolism (Chronic) 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) Medically complex patient (Chronic) Obesity (BMI 30.0-34.9) (Chronic) correction (current) use of anticoagulants (Chronic) Shortness of breath (Acute) Asthma exacerbation (Acute) Abnormal CT scan, chest (Acute) DNR (do not resuscitate) (Chronic) Exercise hypoxemia (Acute) Gangrene (Acute) Chronic kidney disease (CKD) stage G4/A3, severely decreased glomerular f iltration rate (GFR) between 15-29 mL/min/1.73 square meter and albuminuria creatinine ratio greater than 300 mg/g (Chronic) Volume overload (Chronic) Anemia in CKD (chronic kidney disease) (Chronic) BK viruria (Acute) Heart transplant recipient (Acute) CHF (congestive heart failure) (Acute) Nephrotic range proteinuria (Chronic) Secondary hyperparathyroidism of renal origin (Acute) 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 difficile diarrhea (Acute) Diarrhea (Acute) Cellulitis (Acute) Intractable nausea and vomiting (Acute) End stage renal failure on dialysis (Chronic) Diarrhea (Acute) Medical History (Updated 06/07/21 @ 14:07 by Rahel Barcenas MD) Anxiety disorder situational, mild Cellulitis CKD (chronic kidney disease), stage IV Complicated UTI (urinary tract infection) COPD (chronic obstructive pulmonary disease) Depression with anxiety Diabetes mellitus, type II DNR (do not resuscitate) per discussion in ER 02-14-2020 DVT (deep venous thrombosis) Expressive aphasia Falls frequently GERD (gastroesophageal reflux disease) History of cardiac pacemaker History of MRSA infection left lower extremity laceration infection late 2018 or early 2019. 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 Invasive of right forearm Surgical History Heart transplant status (~04/2005) History of cataract surgery History of lumpectomy History of vascular surgery Multiple 1000-4516 S/P CABG x 3 Status post surgical removal of malignant neoplasm of skin Family History Father CHF (congestive heart failure) Heart disease, congenital Mother CHF (congestive heart failure) Heart disease, congenital Diabetes mellitus, type II Family/Other Dementia Paternal/Maternal Aunt Diabetes mellitus, type II Paternal/Maternal Aunt Brother Diabetes mellitus, type II CHF (congestive heart failure) Social History household members: other details: female roommate housing: other details: trailer lives independently: No marital status: single education level: college occupational status: retired occupation: [employer] pets and animals: Yes pets and animals: dog(s) MEDS/ALLERGIES Home Medications and Allergies Home Medications Medication Instructions Recorded Confirmed Type multivitamin 1 each PO DAILY 12/06/16 06/07/21 History prednisone 2.5 mg PO DAILY 12/06/16 06/07/21 History warfarin 3 mg PO DAILY 11/07/19 06/07/21 History clopidogrel 75 mg tablet 75 mg PO QDAY 01/15/20 06/07/21 History umeclidinium 62.5 mcg-vilanterol 1 inh INHALATION QDAY 01/15/20 06/07/21 History 25 mcg/actuation powdr for inhalation Basaglar Kwikpen U-100 30 units SUBCUT DAILY 02/14/20 06/07/21 History Accu-Chek 1 each FS ACHS strip 02/16/20 06/07/21 Rx insulin glargine 30 unit SQ DAILY #10 ml 02/16/20 06/07/21 Rx olmesartan 5 mg tablet 5 mg PO QDAY #30 tab 12/15/20 06/07/21 Rx ascorbic acid (vitamin C) 500 mg 500 mg PO DAILY 01/21/21 06/07/21 History capsule cholecalciferol (vitamin D3) 50 50 mcg PO QDAY 01/21/21 06/07/21 History mcg (2,000 unit) capsule fluorouracil 5 % topical cream 1 applic TOPICAL BID 01/21/21 06/07/21 History lorazepam 1 mg tablet 0.5 mg PO QHS tab 01/21/21 06/07/21 History mirtazapine 15 mg tablet 15 mg PO HS tab 01/21/21 06/07/21 History tacrolimus 1 mg capsule, 1 mg PO TID cap 01/21/21 06/07/21 History immediate-release torsemide 100 mg tablet See Rx Instructions PO .COMPLEX 01/21/21 06/07/21 Rx #90 tab cephalexin 500 mg PO QID #40 cap 05/21/21 06/07/21 Rx Prograf 1 mg PO DAILY 06/07/21 06/07/21 History hydrocodone-acetaminophen [[place]] 1 tab PO PRN PRN 06/07/21 06/07/21 History metolazone 2.5 mg PO WEEKLY 06/07/21 06/07/21 History mycophenolate mofetil [CellCept] 250 mg PO BID 06/07/21 06/07/21 History Allergies Allergy/AdvReac Type Severity Reaction Status Date / Time Heparin Analogues Allergy Severe HIT (+) IN Verified 06/07/21 08:05 2004 (USED FRAGMIN IN 2006 = OK) spironolactone AdvReac Intermediate Diarrhea Verified 06/07/21 08:05 Sulfa (Sulfonamide AdvReac Mild Nausea/Vomi Verified 06/07/21 08:05 Antibiotics) ting Physical Examination Vital Signs Vital signs: Temp Pulse Resp BP Pulse Ox 97.0 F 89 19 151/67 94 06/07/21 08:01 06/07/21 13:47 06/07/21 13:47 06/07/21 13:46 06/07/21 13:47 General Appearance General appearance: appears started age and fatigue EENT EENT: mucous membranes moist Neck Neck: no JVD Respiratory Respiratory: clear Cardiovascular Cardiology: no edema, regular rate and regular rhythm Gastrointestinal Gastrointestinal: tenderness Integumentary Integumentary: no rash Neurologic Neurologic: no focal deficit and alert and oriented x3 Musculoskeletal Musculoskeletal: no erythema Psychiatric Psychiatric: mood/affect appropriate and cooperative Results Lab Results Result Diagrams: 06/07/21 09:04 06/07/21 09:04 Lab results: Most recent lab results Calcium 9.0 mg/dL (8.6-10.4) 06/07/21 09:04 A/P Assessment and plan (1) End stage renal failure on dialysis: Assessment and plan: Ariadna Jean is a 81-year-old female with end stage renal disease on hemodialysis, chronic anemia due to ESRD, hypertension, diabetes mellitus type 2 admitted on 06/07/21. Nephrology consultation was requested for end stage renal disease. End stage renal disease on hemodialysis. Chronic anemia due to ESRD. Intractable nausea, vomiting and diarrhea. Workup: CT Abdomen and Pelvis wo contrast on 06/07/21: Severe atherosclerotic disease wi th hemodynamically significant stenoses at their origins of the superior mesenteric artery, inferior mesenteric artery, both renal arteries and left common iliac artery. No evidence of ischemic bowel or bowel obstruction. Small incidental gallstone. Recommendations/Plan: Hemodialysis tomorrow, then continue the outpatient schedule of Sunday, , Sunday. Status: Chronic Time Spent With Patient Time: Total time spent is greater than 50% in coordination of care (as documente d) at patient's floor/unit and/or counseling patient:
--- NOTE | 2021-06-07 14:50 | Cat Scan Report ---
History: Intractable nausea and vomiting with epigastric pain TECHNIQUE: The patient was imaged without contrast in axial plane at 2.5 mm intervals from the diaphragm through the symphysis pubis. Sagittal and coronal reformats were created. The radiation exposure was limited using dose reduction technology. FINDINGS: There are several linear bands of scar tissue in both lung bases. The heart is moderately enlarged and there is a pacemaker in the right side of the heart. These are chronic findings with little change since prior CT done on 03/02/16. Evaluation of the abdominal organs without contrast is somewhat limited. The liver is normal in size and homogeneous. Spleen also appears normal. Layering posteriorly in the gallbladder there is a 4 mm faintly calcified stone. The wall is not thickened or inflamed. The bile ducts are nondilated. No mass or inflammation are seen in the pancreas. The adrenals are normal and symmetric. There is mild atrophy of both kidneys. There are couple small cortical cyst posteriorly in the right kidney. Largest is 1.7 cm. There are multiple calcifications in the interlobar branches of the renal arteries bilaterally. There are also large densely calcified plaques at the origins of both renal arteries. These are probably causing hemodynamically significant stenosis. The plaque formation and renal atrophy has become worse since a prior CT done on 03/02/16. Patient also has severe atherosclerotic disease in the aorta and visceral branches. There is an occlusion of the left common iliac artery. A critical stenosis is present at the origin of the superior mesenteric artery. There is also dense calcification with stenosis at the origin of the inferior mesenteric artery. The aorta is normal in caliber. Patient has a right side femorofemoral bypass graft. There is a 2 cm pseudoaneurysm in the right groin. The large and small intestine do not appear thickened or edematous. No bowel obstruction is present. The stomach contains fluid and some radiopaque material which could be an antacid. The duodenum and jejunum and ileum are normal caliber. Large intestine is decompressed. There is a mobile cecum. Appendix is not seen. Uterus and ovaries are atrophic. Urinary bladder is incompletely distended but appears normal. Degenerative disc disease and arthritis are present throughout the lumbar spine. There is an old moderate anterior wedge compression fracture at L1. IMPRESSION: Severe atherosclerotic disease with hemodynamically significant stenoses at their origins of the superior mesenteric artery, inferior mesenteric artery, both renal arteries and left common iliac artery No evidence of ischemic bowel or bowel obstruction Small incidental gallstone Dr. Camargo was called with the report Interpreted and Authenticated by: Chaitanya Gorman 06/07/21
--- NOTE | 2021-06-07 16:03 | Internal Med History&Physical ---
HPI History of Present Illness Patient information: Note initiated : 06/07/21 at 3:55 pm Service Date, if different from initiated Date: [] Patient: Ariadna Jean a 81 y/o F admitted on for N/V/D x 2 Days. Chief Complaint: [] History of present illness: Ms. Jean is a 81 year old F Presents with nausea vomiting. She has had it for couple days. Diarrhea which is chronic. She gets dialysis Sunday. She complains of what sounds like heartburn. When asked about headache she says maybe just is mild. Denies dizziness. CT abdomen pelvis unremarkable. She was only given 8 mg of Zofran and 0.5 of IV Ativan. She has nausea, the last time she vomited was 2 hours ago. Case discussed with inside sales coordinator to plan on doing dialysis in the morning. Vital signs are stable. Patient denies any changes in medications. Review of Systems: Positive as above. Denies fever/chills/abdominal pain/cough/dyspnea. Remaining 10 point review of system reviewed negative PFSH PFSH All Active Problems (Updated 06/07/21 @ 14:07 by Rahel Barcenas MD) Complicated UTI (urinary tract infection) (Chronic) Falls frequently (Chronic) Heart transplant status (Chronic ~04/2005) COPD (chronic obstructive pulmonary disease) (Chronic) HTN (hypertension) (Chronic) DVT (deep venous thrombosis) (Chronic) Peripheral vascular disease (Chronic) Mild cognitive impairment (Chronic) Anxiety disorder (Chronic) Major depressive disorder, single episode, moderate (Chronic) Situational anxiety (Chronic) Infection of superficial incisional surgical site after procedure (Chronic) Immunosuppressed status (Chronic) Expressive aphasia (Chronic) CKD (chronic kidney disease), stage IV (Chronic) GERD (gastroesophageal reflux disease) (Chronic) Hyperlipidemia (Chronic) Diabetes mellitus, type II (Chronic) Depression with anxiety (Chronic) Pulmonary embolism (Chronic) 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) Medically complex patient (Chronic) Obesity (BMI 30.0-34.9) (Chronic) prison (current) use of anticoagulants (Chronic) Shortness of breath (Acute) Asthma exacerbation (Acute) Abnormal CT scan, chest (Acute) DNR (do not resuscitate) (Chronic) Exercise hypoxemia (Acute) Gangrene (Acute) Chronic kidney disease (CKD) stage G4/A3, severely decreased glomerular filtration rate (GFR) between 15-29 mL/min/1.73 square meter and albuminuria creatinine ratio greater than 300 mg/g (Chronic) Volume overload (Chronic) Anemia in CKD (chronic kidney disease) (Chronic) BK viruria (Acute) Heart transplant recipient (Acute) CHF (congestive heart failure) (Acute) Nephrotic range proteinuria (Chronic) Secondary hyperparathyroidism of renal origin (Acute) 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 difficile diarrhea (Acute) Diarrhea (Acute) Cellulitis (Acute) Intractable nausea and vomiting (Acute) End stage renal failure on dialysis (Chronic) Diarrhea (Acute) Medical History (Updated 06/07/21 @ 14:07 by Rahel Barcenas MD) Anxiety disorder situational, mild Cellulitis CKD (chronic kidney disease), stage IV Complicated UTI (urinary tract infection) COPD (chronic obstructive pulmonary disease) Depression with anxiety Diabetes mellitus, type II DNR (do not resuscitate) per discussion in ER 02-14-2020 DVT (deep venous thrombosis) Expressive aphasia Falls frequently GERD (gastroesophageal reflux disease) History of cardiac pacemaker History of MRSA infection left lower extremity laceration infection late 2018 or early 2019. 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 right forearm Surgical History Heart transplant status (~04/2005) History of cataract surgery History of lumpectomy History of vascular surgery Multiple 6250-6360 S/P CABG x 3 Status post surgical removal of malignant neoplasm of skin Family History Father CHF (congestive heart failure) Heart disease, congenital Mother CHF (congestive heart failure) Heart disease, congenital Diabetes mellitus, type II Family/Other Dementia Paternal/Maternal Aunt Diabetes mellitus, type II Paternal/Maternal Aunt Brother Diabetes mellitus, type II CHF (congestive heart failure) Social History household members: other details: female roommate housing: other details: trailer lives independently: No marital status: single education level: college occupational status: retired occupation: [employer] pets and animals: Yes pets and animals: dog(s) MEDS/ALLERGIES Home Medications and Allergies Home Medications Medication Instructions Recorded Confirmed Type multivitamin 1 each PO DAILY 12/06/16 06/07/21 History prednisone 2.5 mg PO DAILY 12/06/16 06/07/21 History warfarin 3 mg PO DAILY 11/07/19 06/07/21 History clopidogrel 75 mg tablet 75 mg PO QDAY 01/15/20 06/07/21 History umeclidinium 62.5 mcg-vilanterol 1 inh INHALATION QDAY 01/15/20 06/07/21 History 25 mcg/actuation powdr for inhalation Basaglar Kwikpen U-100 30 units SUBCUT DAILY 02/14/20 06/07/21 History Accu-Chek 1 each FS ACHS strip 02/16/20 06/07/21 Rx insulin glargine 30 unit SQ DAILY #10 ml 02/16/20 06/07/21 Rx olmesartan 5 mg tablet 5 mg PO QDAY #30 tab 12/15/20 06/07/21 Rx ascorbic acid (vitamin C) 500 mg 500 mg PO DAILY 01/21/21 06/07/21 History capsule cholecalciferol (vitamin D3) 50 50 mcg PO QDAY 01/21/21 06/07/21 History mcg (2,000 unit) capsule fluorouracil 5 % topical cream 1 applic TOPICAL BID 01/21/21 06/07/21 History lorazepam 1 mg tablet 0.5 mg PO QHS tab 01/21/21 06/07/21 History mirtazapine 15 mg tablet 15 mg PO HS tab 01/21/21 06/07/21 History tacrolimus 1 mg capsule, 1 mg PO TID cap 01/21/21 06/07/21 History immediate-release torsemide 100 mg tablet See Rx Instructions PO .COMPLEX 01/21/21 06/07/21 Rx #90 tab cephalexin 500 mg PO QID #40 cap 05/21/21 06/07/21 Rx Prograf 1 mg PO DAILY 06/07/21 06/07/21 History hydrocodone-acetaminophen [[place]] 1 tab PO PRN PRN 06/07/21 06/07/21 History metolazone 2.5 mg PO WEEKLY 06/07/21 06/07/21 History mycophenolate mofetil [CellCept] 250 mg PO BID 06/07/21 06/07/21 History Allergies Allergy/AdvReac Type Severity Reaction Status Date / Time Heparin Analogues Allergy Severe HIT (+) IN Verified 06/07/21 08:05 2004 (USED FRAGMIN IN 2006 = OK) spironolactone AdvReac Intermediate Diarrhea Verified 06/07/21 08:05 Sulfa (Sulfonamide AdvReac Mild Nausea/Vomi Verified 06/07/21 08:05 Antibiotics) ting EXAM Constitutional Vitals: Temp Pulse Resp BP Pulse Ox 97.0 F 91 H 18 161/61 95 06/07/21 08:01 06/07/21 15:35 06/07/21 15:35 06/07/21 15:30 06/07/21 15:35 Exam: General: Alert, Awake, No acute Distress Eyes/N/T: EOMI, PERRL, Head/Neck: neck supple, normocephalic atraumatic CV: RRR, No murmurs, normal s1/s2 Pulm: Clear b/l, no wheezing/rhonchi/rales Abd: soft, nontender, +BS x4 Ext: no clubbing/cyanosis/edema Neuro: Alert, no focal deficits, moves all extremities, CN 2-12 grossly intact, symmetrical strength b/l upper/lower, sensations intact b/l upper/lower Skin: warm/dry DATA Data Completed and Pending Labs: Labs from last 24 hours 06/07/21 06/07/21 06/07/21 12:39 09:04 09:04 WBC 4.4 L RBC 3.43 L Hgb 10.2 L Hct 33.0 L MCV 96.2 MCH 29.7 MCHC 30.9 L RDW 14.6 H Plt Count 201 MPV 9.2 Neut % (Auto) 84.7 H Lymph % (Auto) 9.8 L [place] % (Auto) 4.8 Eos % (Auto) 0.2 Baso % (Auto) 0.5 Lymph # (Auto) 0.43 L [place] # (Auto) 0.21 Eos # (Auto) 0.01 Baso # (Auto) 0.02 Absolute Neutrophils 3.73 PT INR Sodium 135 Potassium 3.6 Chloride 97 Carbon Dioxide 22 Anion Gap 16.0 BUN 19 Creatinine 4.3 H GFR Calculation 9 Glucose 171 H Calcium 9.0 Total Bilirubin 0.4 AST 32 H ALT 38 Alkaline Phosphatase 78 Total Protein 6.3 Albumin 3.6 Globulin 2.7 Albumin/Globulin Ratio 1.3 Urine Color Yellow Urine Appearance Clear Urine pH 8.0 Ur Specific [place] 1.008 Urine Protein 100 A Urine Glucose (UA) 50 A Urine Ketones Negative Urine Occult Blood Negative Urine Nitrate Negative Urine Bilirubin Negative Urine Urobilinogen Negative Ur Leukocyte Esterase Negative Urine RBC < 1 Urine WBC < 1 Ur Squamous Epith Cells 1 Ur Transition Epith Cell < 1 Urine Bacteria None Urine Mucus Few A Ur Culture Indicated? No 06/07/21 09:03 WBC RBC Hgb Hct MCV MCH MCHC RDW Plt Count MPV Neut % (Auto) Lymph % (Auto) [place] % (Auto) Eos % (Auto) Baso % (Auto) Lymph # (Auto) [place] # (Auto) Eos # (Auto) Baso # (Auto) Absolute Neutrophils PT 21.7 H INR 1.8 H Sodium Potassium Chloride Carbon Dioxide Anion Gap BUN Creatinine GFR Calculation Glucose Calcium Total Bilirubin AST ALT Alkaline Phosphatase Total Protein Albumin Globulin Albumin/Globulin Ratio Urine Color Urine Appearance Urine pH Ur Specific [place] Urine Protein Urine Glucose (UA) Urine Ketones Urine Occult Blood Urine Nitrate Urine Bilirubin Urine Urobilinogen Ur Leukocyte Esterase Urine RBC Urine WBC Ur Squamous Epith Cells Ur Transition Epith Cell Urine Bacteria Urine Mucus Ur Culture Indicated? A/P Narrative A/P Narrative: A: *N/V: *Diarrhea, chronic: Being worked up by Dr. Vazquez *ESRD: *DM: *Mild cognitive impairment, per notes: *Depression/anxiety: *h/o DVT/PE: On warfarin *HTN: *Cardiac Transplant: on immunosuppression P: -Antiemetics, s/p IVF in ED -Nephrology for HD -Continue home plavix/ARBmedications - -SSI -ppx: Pharmacy for warfarin DNR Time Spent With Patient Time: Total time spent is greater than 50% in coordination of care (as documented) at patient's floor/unit and/or counseling patient:
[2021-06-07] MEDS ORDERED: PROMETHAZINE 25 MG/ML VIAL IV PRN (18:30)
[2021-06-07] MEDS ORDERED: ACETAMINOPHEN 325 MG TABLET PO PRN (18:30)
[2021-06-07] MEDS ORDERED: MAGNESIUM SULFATE 2 GM/50 ML BAG IV PRN (18:30)
[2021-06-07] MEDS ORDERED: HYDROcodone/APAP 5/325MG TABLET PO PRN (18:30)
[2021-06-07] MEDS ORDERED: DEXTROSE 31 GM ORAL.SUSP PO PRN (18:30)
[2021-06-07] MEDS ORDERED: IPRATROPIUM/ALBUTEROL 3 ML AMPUL.NEB NEB PRN (18:30)
[2021-06-07] MEDS ORDERED: METOCLOPRAMIDE 10 MG/2 ML VIAL IV PRN (18:30)
[2021-06-07] MEDS ORDERED: POTASSIUM CHLORIDE 20 MEQ TABLET PO PRN ×2 (18:30)
[2021-06-07] MEDS ORDERED: DEXTROSE 50% 50 ML VIAL IV PRN (18:30)
[2021-06-07] MEDS ORDERED: diphenhydrAMINE 50 MG/ML VIAL IV PRN (18:30)
[2021-06-07] MEDS ORDERED: POTASSIUM CHLORIDE 40 MEQ in DEXTROSE 5% IN WATER 500 ML IV PRN (18:30)
[2021-06-07] MEDS: INSULIN LISPRO 1 UNIT/0.01 ML UNIT SQ SCH ×2 (20:29→21:19)
[2021-06-07] MEDS ORDERED: TACROLIMUS 1 MG CAPSULE PO SCH (21:00)
[2021-06-07] MEDS: MYCOPHENOLATE 250 MG CAPSULE PO SCH (21:12)
[2021-06-07] MEDS: LORazepam 0.5 MG TABLET PO SCH (21:13)
[2021-06-07] MEDS: 0.9 % SODIUM CHLORIDE 10 ML SYRINGE IV SCH (21:14)
[2021-06-07] MEDS: MIRTAZAPINE 15 MG TABLET PO SCH (21:14)
[2021-06-08] MEDS: ONDANSETRON 4 MG/2 ML VIAL IV PRN ×3 (02:35→20:45)
[2021-06-08] MEDS: 0.9 % SODIUM CHLORIDE 10 ML SYRINGE IV SCH ×3 (05:55→20:38)
[2021-06-08 06:42] LABS: INR 1.8 (0.9-1.1)
[2021-06-08] MEDS: INSULIN LISPRO 1 UNIT/0.01 ML UNIT SQ SCH ×4 (07:32→20:39)
[2021-06-08] MEDS: MYCOPHENOLATE 250 MG CAPSULE PO SCH (07:32)
--- NOTE | 2021-06-08 07:46 | Internal Med Progress Note ---
SUBJECTIVE Subjective Patient information: Note initiated : 06/08/21 at 7:42 am Service Date, if different from initiated Date: [] Patient: Ariadna Jean a 81 y/o F admitted on 06/07/21 for N/V/D x 2 Days. Chief Complaint: [] Interval history: History of present illness: Ms. Jean is a 81 year old F Presents with nausea vomiting. She has had it for couple days. Diarrhea which is chronic. She gets dialysis Sunday. She complains of what sounds like heartburn. When asked about headache she says maybe just is mild. Denies dizziness. CT abdomen pelvis unremarkable. She was only given 8 mg of Zofran and 0.5 of IV Ativan. She has nausea, the last time she vomited was 2 hours ago. Case discussed with [facility] to plan on doing dialysis in the morning. Vital signs are stable. Patient denies any changes in medications. 06/08 Nausea much improved. No overnight event or new complaints. Pending dialysis today. Review of Systems: denies headache/fever/chills/vomiting/chest or abdominal pain/cough/dyspnea/diarrhea. Otherwise see above. Constitutional Vitals: Vital Signs Temp Pulse Resp BP Pulse Ox 98.7 F 98 H 20 113/72 93 06/08/21 04:15 06/08/21 04:15 06/08/21 04:15 06/08/21 04:15 06/08/21 04:15 Period Temp Pulse Resp BP Sys/Shetty Pulse Ox Last 24 Hr 97.0 F-98.7 F 70-102 12-26 79-164/47-95 92-100 Intake and Output 06/07/21 06/08/21 06/08/21 21:59 05:59 13:59 Intake Total 0 Output Total 275 250 Balance -275 -250 Weight 77.7 kg Intake & Output: Intake & Output 06/07/21 06/08/21 06/08/21 21:59 05:59 13:59 Intake Total 0 Output Total 275 250 Balance -275 -250 Weight 77.7 kg Intake: Oral 0 Output: Gastric Drainage 25 Oral 25 Void Amount 250 250 Other: Urine Appearance Clear Urine Color Dark Yellow Bright Yellow Stool Size Small Stool Color Brown Stool Consistency Loose Exam: General: Alert, Awake, No acute Distress Eyes/N/T: EOMI, Head/Neck: neck supple, CV: RRR, 2/6 SM Pulm: Clear b/l, no wheezing/rhonchi/rales Abd: soft, nontender, +BS x4 Ext: no clubbing/cyanosis/edema Neuro: Alert, no focal deficits, moves all extremities, Skin: warm/dry OBJ DATA Labs CBC & Chem 7: 06/07/21 09:04 06/07/21 09:04 Labs: Abnormal Lab Results 06/08/21 06/07/21 06/07/21 05:40 12:39 09:04 WBC RBC Hgb Hct MCHC RDW Neut % (Auto) Lymph % (Auto) Lymph # (Auto) PT 22.0 H INR 1.8 H Creatinine 4.3 H Glucose 171 H AST 32 H Urine Protein 100 A Urine Glucose (UA) 50 A Urine Mucus Few A 06/07/21 06/07/21 09:04 09:03 WBC 4.4 L RBC 3.43 L Hgb 10.2 L Hct 33.0 L MCHC 30.9 L RDW 14.6 H Neut % (Auto) 84.7 H Lymph % (Auto) 9.8 L Lymph # (Auto) 0.43 L PT 21.7 H INR 1.8 H Creatinine Glucose AST Urine Protein Urine Glucose (UA) Urine Mucus Meds: Medications Acetaminophen (Acetaminophen 325 Mg Tablet) 650 mg PO Q6HP PRN PRN Reason: PAIN/FEVER > 101 Hydrocodone Bitart/Acetaminophen (Hydrocodone/Apap 5/325mg Tablet) 1 tab PO Q4HP PRN; Protocol PRN Reason: Pain Albuterol/Ipratropium (Ipratropium/Albuterol 3 Ml Ampul.Neb) 3 ml NEB Q4HP PRN PRN Reason: Shortness Of Breath Clopidogrel Bisulfate (Clopidogrel 75 Mg Tablet) 75 mg PO QDAY [facility] Dextrose (Dextrose 50% 50 Ml Vial) 0 ml IV UD PRN PRN Reason: Hypoglycemia Diagnostic Test (Pha) (Accu-Chek 1 Each Strip) 1 each FS ACHS [facility] Last Admin: 06/08/21 07:32 Dose: 1 each Documented by: Diphenhydramine HCl (Diphenhydramine 50 Mg/Ml Vial) 12.5 mg IV Q4HP PRN PRN Reason: nausea vomiting Glucose (Dextrose 31 Gm Oral.Susp) 15 gm PO PRN PRN PRN Reason: Hypoglycemia Potassium Chloride 40 meq/ (Dextrose) 520 mls @ 130 mls/hr IV UD PRN PRN Reason: Potassium < 3 Magnesium Sulfate (Magnesium Sulfate) 2 gm in 50 mls @ 50 mls/hr IV UD PRN PRN Reason: Magnesium </= 1.6 Insulin Glargine (Insulin Glargine, Human 1 Unit/0.01 Ml) 30 unit SQ DAILY [facility] Insulin Human Lispro (Insulin Lispro 1 Unit/0.01 Ml Unit) 0 unit SQ ACHS [facility]; Protocol Last Admin: 06/08/21 07:32 Dose: Not Given Documented by: Lorazepam (Lorazepam 0.5 Mg Tablet) 0.5 mg PO QHS [facility] Last Admin: 06/07/21 21:13 Dose: 0.5 mg Documented by: Metoclopramide HCl (Metoclopramide 10 Mg/2 Ml Vial) 10 mg IV Q6HP PRN PRN Reason: Nausea And Vomiting Last Admin: 06/07/21 19:21 Dose: 10 mg Documented by: Mirtazapine (Mirtazapine 15 Mg Tablet) 15 mg PO [facility] Last Admin: 06/07/21 21:14 Dose: 15 mg Documented by: Mycophenolate Mofetil (Mycophenolate 250 Mg Capsule) 250 mg PO BID@0700,1999 [facility] Last Admin: 06/08/21 07:32 Dose: 250 mg Documented by: Non-Formulary Medication (Olmesartan) 5 mg PO QDAY [facility] Non-Formulary Medication (Prograf) 1 mg PO DAILY [facility] Ondansetron HCl (Ondansetron 4 Mg/2 Ml Vial) 4 mg IV Q4HP PRN PRN Reason: Nausea And Vomiting Last Admin: 06/08/21 07:32 Dose: 4 mg Documented by: Umeclidinium- Vilanterol [Anoro Ellipta] 62.5-25 Mcg 1 dose INH QDAY [facility] Potassium Chloride (Potassium Chloride 20 Meq Tablet) 40 meq PO UD PRN PRN Reason: Potssium is 3-3.5 Potassium Chloride (Potassium Chloride 20 Meq Tablet) 40 meq PO UD PRN PRN Reason: Potassium < 3 Prednisone (Prednisone 5 Mg Tablet) 2.5 mg PO [facility] Promethazine HCl (Promethazine 25 Mg/Ml Vial) 12.5 mg IV Q6HP PRN PRN Reason: Nausea And Vomiting Sodium Chloride (0.9 % Sodium Chloride 10 Ml Syringe) 10 ml IV Q8 [facility] Last Admin: 06/08/21 05:55 Dose: 10 ml Documented by: Tacrolimus (Tacrolimus 1 Mg Capsule) 1 mg PO TID [facility] Last Admin: 06/07/21 21:14 Dose: 1 mg Documented by: Warfarin Sodium (Warfarin Per Pharmacy) 1 order PO DAILY@1400 [facility] A/P Narrative A/P Narrative: A: *N/V: -CT a/p no ileus/obstruction *Diarrhea, chronic: Being worked up by Dr. 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
[2021-06-08] MEDS: CLOPIDOGREL 75 MG TABLET PO SCH (08:25)
[2021-06-08] MEDS: predniSONE 5 MG TABLET PO SCH (08:25)
[2021-06-08] MEDS: TACROLIMUS 1 MG CAPSULE PO SCH (08:26)
[2021-06-08] MEDS: INSULIN GLARGINE, HUMAN 1 UNIT/0.01 ML SQ SCH ×2 (08:26→08:34)
[2021-06-08] MEDS: UMECLIDINIUM VILANTEROL INH SCH (08:30)
[2021-06-08] MEDS ORDERED: OLMESARTAN 5 MG PO SCH (09:00)
[2021-06-08] MEDS ORDERED: WARFARIN 3 MG TABLET PO ONE (14:00)
[2021-06-08] MEDS ORDERED: MYCOPHENOLATE 250 MG CAPSULE PO SCH (20:00)
[2021-06-08] MEDS: MIRTAZAPINE 15 MG TABLET PO SCH (20:37)
[2021-06-08] MEDS: LORazepam 0.5 MG TABLET PO SCH (20:37)
[2021-06-08] MEDS ORDERED: TACROLIMUS 1 MG CAPSULE PO SCH (21:00)
[2021-06-08] MEDS ORDERED: INSULIN GLARGINE, HUMAN 1 UNIT/0.01 ML SQ SCH (21:00)
[2021-06-09] MEDS: 0.9 % SODIUM CHLORIDE 10 ML SYRINGE IV SCH ×2 (04:10→15:28)
[2021-06-09 06:50] LABS: Prothrombin Time 23.2 sec (11.9-14.5)
[2021-06-09 06:58] LABS: ALT/SGPT 36 U/L (<40); AST/SGOT 32 U/L (<32); Albumin 3.4 gm/dL (3.2-5.2); Albumin/Globulin Ratio 1.5 (1.0-2.3); Alkaline Phosphatase 75 U/L (39-117); Bilirubin,Total 0.5 mg/dL (0.1-1.0); Blood Urea Nitrogen 11 mg/dL (8-23); Calcium 8.6 mg/dL (8.6-10.4); Carbon Dioxide 29 mmol/L (22-30); Chloride 93 mmol/L (96-108); Globulin 2.3 gm/dL (2.2-3.7); Glomerular Filtration Rate 16; Glucose 75 mg/dL (70-105)
[2021-06-09] MEDS ORDERED: MYCOPHENOLATE 250 MG CAPSULE PO SCH (07:00)
[2021-06-09 07:21] LABS: Basophils # (Auto) 0.03 K/mcL (0.00-0.20); Basophils % (Auto) 0.5 % (0.0-2.0); Eosinophils # (Auto) 0.08 K/mcL (0.00-0.70); Eosinophils % (Auto) 1.4 % (0.0-7.0); Hematocrit 32.9 % (36.0-48.0); Hemoglobin 10.2 g/dL (12.0-15.0); Lymphocytes # (Auto) 0.91 K/mcL (1.50-4.80); Lymphocytes % (Auto) 15.5 % (15.0-49.0); Mean Cell Volume 92.7 fL (80.0-100.0); Mean Platelet Volume 9.4 fL (7.4-10.4); Monocytes # (Auto) 0.65 K/mcL (0.10-0.90); Monocytes % (Auto) 11.1 % (1.0-12.0); Neutrophils % (Auto) 71.5 % (38.0-78.0); Platelet Count 252 K/mcL (140-440); RBC 3.55 M/mcL (4.00-5.20); Red Cell Distribution Width 14.4 % (11.5-14.5); WBC 5.9 K/mcL (4.5-11.0)
[2021-06-09] MEDS: INSULIN LISPRO 1 UNIT/0.01 ML UNIT SQ SCH ×2 (07:22→11:30)
[2021-06-09] MEDS: predniSONE 5 MG TABLET PO SCH (07:33)
[2021-06-09] MEDS: CLOPIDOGREL 75 MG TABLET PO SCH (07:34)
[2021-06-09] MEDS: UMECLIDINIUM VILANTEROL INH SCH (07:34)
[2021-06-09] MEDS: TACROLIMUS 1 MG CAPSULE PO SCH (07:34)
[2021-06-09] MEDS: ONDANSETRON 4 MG ODT TABLET SL PRN ×2 (09:00→15:33)
[2021-06-09] MEDS ORDERED: WARFARIN 3 MG TABLET PO ONE (14:00)
--- NOTE | 2021-06-09 14:07 | Discharge Summary ---
Discharge Provider Provider Patient information: Note initiated : 06/09/21 at 2:04 pm Service Date, if different from initiated Date: [] Patient: Ariadna Jean 81 y/o F admitted on 06/07/21 for N/V/D x 2 Days. Chief Complaint: [] Date of admission: 06/07/21 18:05 Discharge date: 06/09/21 Primary care physician: Keysha Lopez Consults: 06/07/21 Consult to Physician [CONS] Stat Comment: Consulting Provider: Claudio Nunn Reason For Exam: Physician to Consult Consult to Physician [CONS] Stat Comment: Consulting Provider: Rahel Barcenas Reason For Exam: Physician to Consult Discharge Meds Discharge Medications Home Medications multivitamin 1 each PO DAILY 12/06/16 [History Confirmed 06/07/21 Last Taken 02/13/20 12:00 1 tab] prednisone 2.5 mg PO DAILY 12/06/16 [History Confirmed 06/07/21 Last Taken 02/13/20 12:00 2.5 mg] warfarin 3 mg PO DAILY 11/07/19 [History Confirmed 06/07/21 Last Taken 02/13/20 21:00 1 mg] clopidogrel 75 mg tablet 75 mg PO QDAY 01/15/20 [History Confirmed 06/07/21 Last Taken 06/05/21] umeclidinium 62.5 mcg-vilanterol 25 mcg/actuation powdr for inhalation 1 inh INHALATION QDAY 01/15/20 [History Confirmed 06/07/21 Last Taken 02/13/20 21:00 1 puff] Basaglar Kwikpen U-100 30 units SUBCUT HS 02/14/20 [History Confirmed 06/07/21 Last Taken 02/13/20 21:00 30 units] Accu-Chek 1 each FS ACHS strip 02/16/20 [Rx Confirmed 06/07/21 Last Taken Unknown] ascorbic acid (vitamin C) 500 mg capsule 500 mg PO DAILY 01/21/21 [History Confirmed 06/07/21 Last Taken Unknown] cholecalciferol (vitamin D3) 50 mcg (2,000 unit) capsule 50 mcg PO QDAY 01/21/21 [History Confirmed 06/07/21 Last Taken Unknown] fluorouracil 5 % topical cream 1 applic TOPICAL BID 01/21/21 [History Confirmed 06/07/21 Last Taken Unknown] lorazepam 1 mg tablet 0.5 mg PO QHS tab 01/21/21 [History Confirmed 06/07/21 Last Taken Unknown] mirtazapine 15 mg tablet 15 mg PO HS tab 01/21/21 [History Confirmed 06/07/21 Last Taken Unknown] tacrolimus 1 mg capsule, immediate-release 1 mg PO TID cap 01/21/21 [History Confirmed 06/07/21 Last Taken Unknown] torsemide 100 mg tablet See Rx Instructions PO .COMPLEX #90 tab 01/21/21 [Rx Confirmed 06/07/21 Last Taken Unknown] Prograf See Rx Instructions .ROUTE .COMPLEX 06/07/21 [History Confirmed 06/07/21 Last Taken Unknown] calcitriol 0.25 mcg PO 3XW 06/07/21 [History Confirmed 06/07/21 Last Taken Unknown] metolazone 2.5 mg PO WEEKLY 06/07/21 [History Confirmed 06/07/21 Last Taken Unknown] mycophenolate mofetil [CellCept] 250 mg PO 0700 06/07/21 [History Confirmed 06/08/21 Last Taken 06/07/21 07:00] mycophenolate mofetil [CellCept] 500 mg PO 199906/08/21 [History Confirmed 06/08/21 Last Taken 06/07/21 21:00] ondansetron HCl [Zofran] 4 mg PO Q8H PRN #20 tab 06/09/21 [Rx Last Taken Unknown] COURSE Hospital Course Hospital course: Patient was admitted on 06/07/21 for nausea and vomiting with missed hemodialysis for ESRD. Antiemetics were provided and hemodialysis was performed on 06/09/21. Symptoms resolved and patient returned to her clinical baseline on 06/09/21. As such, decision was made to discharge her home with instruction to follow up with PCP in 2 weeks made for her. Rx sent to pharmacy. Discharge diagnosis: ESRD on HD Time Spent with Patient Time attestation: Total time spent providing and/or coordinating discharge services: Patient was admitted on 06/07/21 for nausea and vomiting with missed hemodialysis for ESRD. Antiemetics were provided and hemodialysis was performed on 06/09/21. Symptoms resolved and patient returned to her clinical baseline on 06/09/21. As such, decision was made to discharge her home with instruction to follow up with PCP in 2 weeks made for her. Rx sent to pharmacy. EXAM Constitutional Vitals: Temp Pulse Resp BP Pulse Ox 36.4 C 81 18 137/82 93 06/09/21 08:00 06/09/21 08:00 06/09/21 08:00 06/09/21 08:00 06/09/21 08:00 General appearance: cooperative and no acute distress Head Head exam: Present atraumatic and normocephalic Eye Eye exam: Present EOMI and PERRL ENT ENT exam: Present mucous membranes moist, normal exam and normal external ear exam Neck Neck exam: Present normal inspection; Absent lymphadenopathy, tenderness and thyromegaly Respiratory Respiratory exam: Absent accessory muscle use, respiratory distress and wheezes Cardiovascular Cardiovascular exam: Present normal rate and rhythm; Absent JVD GI/Abdominal GI/Abdominal exam: Present normal bowel sounds and soft; Absent organomegaly and tenderness Extremities Exam Extremities exam: Present full ROM, normal capillary refill and normal inspection; Absent tenderness Neurological Exam Neurological exam: Present alert, CN II-XII intact and oriented X3; Absent motor sensory deficit Psychiatric Psychiatric exam: Present normal affect and normal mood; Absent anxious and depressed Skin Skin exam: Present dry and intact Discharge Data Data Completed and Pending Labs on day of discharge: Labs from last 24 hours 06/09/21 06/09/21 06/09/21 05:24 05:23 05:23 WBC 5.9 RBC 3.55 L Hgb 10.2 L Hct 32.9 L MCV 92.7 MCH 28.7 MCHC 31.0 RDW 14.4 Plt Count 252 MPV 9.4 Neut % (Auto) 71.5 Lymph % (Auto) 15.5 [place] % (Auto) 11.1 Eos % (Auto) 1.4 Baso % (Auto) 0.5 Lymph # (Auto) 0.91 L [place] # (Auto) 0.65 Eos # (Auto) 0.08 Baso # (Auto) 0.03 Absolute Neutrophils 4.20 PT 23.2 H INR 2.0 H Sodium 134 Potassium 3.1 L Chloride 93 L Carbon Dioxide 29 Anion Gap 12.0 BUN 11 Creatinine 2.7 H GFR Calculation 16 Glucose 75 Calcium 8.6 Total Bilirubin 0.5 AST 32 H ALT 36 Alkaline Phosphatase 75 Total Protein 5.7 L Albumin 3.4 Globulin 2.3 Albumin/Globulin Ratio 1.5 Discharge Plan Patient/Caregiver Discharge Instructions Activity: increase activity as tolerated Diet: Renal Prescriptions: New ondansetron HCl [Zofran] 4 mg tablet 4 mg PO Q8H PRN (Reason: nausea and vomiting) Qty: 20 RF: 0 Continued umeclidinium 62.5 mcg-vilanterol 25 mcg/actuation powdr for inhalation 62.5-25 mcg/actuation blister with device 1 inh INHALATION QDAY RF: 0 clopidogrel [Plavix] 75 mg tablet 75 mg PO QDAY RF: 0 lorazepam 1 mg tablet 0.5 mg PO QHS RF: 0 cholecalciferol (vitamin D3) 50 mcg (2,000 unit) capsule 50 mcg PO QDAY RF: 0 ascorbic acid (vitamin C) 500 mg capsule 500 mg PO DAILY RF: 0 fluorouracil 5 % cream 1 applic topical BID RF: 0 torsemide 100 mg tablet See Rx Instructions PO .COMPLEX Qty: 90 RF: 3 multivitamin 1 EACH tablet 1 each PO DAILY RF: 0 prednisone 2.5 MG tablet 2.5 mg PO DAILY RF: 0 tacrolimus 1 mg capsule 1 mg PO TID RF: 0 warfarin 1 MG tablet 3 mg PO DAILY RF: 0 mirtazapine 15 mg tablet 15 mg PO HS RF: 0 Basaglar Kwikpen U-100 30 units subcut HS RF: 0 Accu-Chek 1 EACH strip 1 each FS ACHS RF: 0 metolazone 2.5 mg Tablet 2.5 mg PO WEEKLY RF: 0 Prograf See Rx Instructions .ROUTE .COMPLEX RF: 0 mycophenolate mofetil [CellCept] 250 mg Capsule 250 mg PO 0700 RF: 0 calcitriol 0.25 mcg capsule 0.25 mcg PO 3XW RF: 0 mycophenolate mofetil [CellCept] 250 mg capsule 500 mg PO 2000 RF: 0 Follow Up Plan Follow up with: Keysha Lopez MD [Primary Care Provider] - Patient Disposition: Home, Self-Care Prognosis: Fair Rehab Potential: Good I certify that the patient requires SNF services: No Overall status at discharge: patient is back to baseline Discharge Orders: Discharge Order (Routine); Ordered 06/09/21 Ordered By: Dexter KAPOOR VTE Deep Vein Thrombosis/Pulmonary Embolism Present on Admission: No
--- NOTE | 2021-06-09 14:36 | EKG ---
[facility] Test Date: 2021-06-07 Pat Name: Ariadna Jean Department: ED Room: Gender: Female [employer]: AW : 1940 Requested By: Jordan Camargo Order Number: [id number] Reading MD: Pablo Marie M.D. Measurements Intervals [place] Rate: 87 P: 38 OR: 200 QRS: 59 QRSD: 82 T: -30 QT: 400 QTc: 482 Interpretive Statements SINUS RHYTHM NONSPECIFIC T ABNORMALITIES, ANTERIOR LEADS NO PRIOR TRACING FOR COMPARISON ABNORMAL ECG Electronically Signed On 06-09-2021 14:36:30 PDT by Pablo Marie M.D. /[id number]
== END 2021-06-09 15:40 | disposition home or self-care (01) ==
LOC: MEDSUR 08:00 → ED 08:00 → MEDSUR 18:05
PROVIDERS: ADMIT Internal Medicine; ATTEND Internal Medicine